=== PATIENT | male | born 1990 | race Caucasian/White ===

== ENCOUNTER 2017-10-08 23:14 | Emergency (ER) | payer BC ==
[2017-10-08 23:53] LABS: #Eosinphils 0.1 thou/uL (0.0-0.7); #Lymphocytes 2.2 thou/uL (1.20-3.40); #Monocytes 0.7 thou/uL (0.11-0.59); #Neutrophils 4.9 thou/uL (1.40-6.50); %Basophils 0.5 % (0.0-1.0); %Lymphocytes 27.8 % (21.0-51.0); %Monocytes 8.4 % (0.0-10.0); Hematocrit 41.2 % (42.0-52.0); Mean Platelet Volume 7.2 fL (7.4-10.4); Red Blood Cell (RBC) Count 4.55 mill/uL (4.70-6.10); White Blood Cell (WBC) Count 7.8 thou/uL (4.8-10.8)
[2017-10-09 00:16] LABS: ALT (SGPT) 19 U/L (8-55); AST (SGOT) 17 U/L (5-34); Alkaline Phosphatase 168 U/L (40-150); Anion Gap 11 mmol/L (10-20); BUN (Urea Nitrogen) 15 mg/dL (8.9-20.6); Bilirubin, Total 0.5 mg/dL (0.2-1.2); Calc. Creatinine Clearance 0 mL/min (70-130); Calcium 9.1 mg/dL (7.8-10.44); Carbon Dioxide 27 mmol/L (22-29); Chloride 106 mmol/L (98-107); Estimated GFR-MDRD 82; Globulin 2.6 g/dL (2.4-3.5); Protein, Total 6.5 g/dL (6.0-8.3)
[2017-10-09 01:45] LABS: Acetaminophen Less than 6.0 mcg/mL (10.0-30.0); CK (CPK) 232 U/L (30-200); Salicylate Less than 8.0 mg/dL (15.0-30.0)
[2017-10-09 01:48] LABS: Troponin I Less than 0.010 ng/mL (< 0.028)
[2017-10-09 02:52] LABS: Bilirubin Negative (Negative); Blood, Urine Negative (Negative); Glucose, Urine (Dipstick) Negative (Negative); Ketone, Urine Negative (Negative); Nitrite Negative (Negative); Protein, Urine (Dipstick) Negative (Neg-Trace)
[2017-10-09 03:01] LABS: Amphetamine Not Detected (NotDetected); Methadone Not Detected (NotDetected); Methamphetamine Detected (NotDetected)
--- NOTE | 2017-10-09 07:36 | RAD ---
FRONTAL VIEW CHEST: Date: 10/09/17 INDICATION: Dyspnea. COMPARISON: 05/22/12. FINDINGS: No consolidation, effusion, or pneumothorax. There is a subtle nodular density in the right lateral apex. Cardiac silhouette is within normal limits of size. Osseous structures are intact. IMPRESSION: There is a subtle nodular density in the right lateral apex, not further localized on the basis of th e frontal view chest series. Recommend nonemergent follow-up with 2 view chest series to re-evaluate. CODE LN
--- NOTE | 2017-10-24 11:39 | EKG ---
Test Reason : DIZZINESS Blood Pressure : / mmHG Vent. Rate : 081 BPM Atrial Rate : 081 BPM P-R Int : 186 ms QRS Dur : 106 ms QT Int : 356 ms P-R-T Axes : 077 092 064 degrees QTc Int : 413 ms Normal sinus rhythm Rightward axis Incomplete right bundle branch block No STEMI Borderline ECG Confirmed by DESTINI LAURA M.D. ([id number]), social media editor FERNANDO MANCILLA ([id number]) on 10/24/2017 11:38:45 AM Referred By: Confirmed By:DESTINI LAURA M.D.
== END 2017-10-09 04:33 | disposition home or self-care (01) ==
LOC: ERS 23:14
DX: F15.10 Other stimulant abuse, uncomplicated (principal); F31.9 Bipolar disorder, unspecified; F90.9 Attention-deficit hyperactivity disorder, unspecified type; F17.210 Nicotine dependence, cigarettes, uncomplicated
CPT/HCPCS: 36415; 71010; 80053; 80306; 80307; 81003; 82550; 82553; 84443; 84484; 85025; 93005; 96360

== ENCOUNTER 2017-10-11 18:19 | Emergency (ER) | payer BC | END 2017-10-11 20:18 | disposition home or self-care (01) | LOC: ERS 18:19 | DX: F41.9 Anxiety disorder, unspecified (principal); F17.210 Nicotine dependence, cigarettes, uncomplicated | CPT/HCPCS: 99406 ==

== ENCOUNTER 2017-10-26 14:54 | Observation (INO) | payer BC ==
[2017-10-26] MEDS ORDERED: Lorazepam 2 MG/ML VIAL ONE (15:12)
[2017-10-26 15:18] LABS: #Basophils 0.1 thou/uL (0.0-0.2); #Eosinphils 0.1 thou/uL (0.0-0.7); #Lymphocytes 3.5 thou/uL (1.20-3.40); #Monocytes 0.9 thou/uL (0.11-0.59); #Neutrophils 9.4 thou/uL (1.40-6.50); %Basophils 0.8 % (0.0-1.0); %Eosinophils 0.8 % (0.0-10.0); %Lymphocytes 24.8 % (21.0-51.0); %Monocytes 6.7 % (0.0-10.0); %Neutrophils 66.9 % (42.0-75.0); Hemoglobin 16.5 g/dL (14.0-18.0); Mean Corpuscular HGB CONC 34.4 g/dL (32.0-36.0); Mean Corpuscular Hemoglobin 31.2 pg (27.0-31.0); Mean Corpuscular Volume 90.7 fl (80.0-94.0); Mean Platelet Volume 7.2 fL (7.4-10.4); Platelet Count 357 thou/uL (130-400); RBC Distribution Width 12.1 % (11.5-14.5); Red Blood Cell (RBC) Count 5.29 mill/uL (4.70-6.10); White Blood Cell (WBC) Count 14.1 thou/uL (4.8-10.8)
[2017-10-26 15:34] LABS: ALT (SGPT) 20 U/L (8-55); AST (SGOT) 19 U/L (5-34); Albumin 4.5 g/dL (3.5-5.0); Alkaline Phosphatase 184 U/L (40-150); Anion Gap 18 mmol/L (10-20); BUN (Urea Nitrogen) 11 mg/dL (8.9-20.6); Bilirubin, Total 0.8 mg/dL (0.2-1.2); CK (CPK) 187 U/L (30-200); Calc. Creatinine Clearance 0 mL/min (70-130); Carbon Dioxide 19 mmol/L (22-29); Chloride 100 mmol/L (98-107); Estimated GFR-MDRD 72; Glucose 129 mg/dL (70-105); Potassium 3.1 mmol/L (3.5-5.1); Protein, Total 7.5 g/dL (6.0-8.3); Sodium 134 mmol/L (136-145)
[2017-10-26 15:37] LABS: CKMB 2.5 ng/mL (0-6.6); Troponin I Less than 0.010 ng/mL (< 0.028)
[2017-10-26 15:39] LABS: Acetaminophen Less than 6.0 mcg/mL (10.0-30.0); Alcohol Less than 10 mg/dL (Less than 10); Salicylate Less than 8.0 mg/dL (15.0-30.0)
[2017-10-26 16:37] LABS: Amphetamine Detected (NotDetected); Barbiturates Screen Not Detected (NotDetected); Benzodiazepine Screen Not Detected (NotDetected); Cocaine Metabolite Screen Not Detected (NotDetected); Medtox Control Line Valid? VALID (VALID); Medtox Reader # READER 1; Methadone Not Detected (NotDetected); Methamphetamine Detected (NotDetected); Opiate Screen Not Detected (NotDetected); Oxycodone Screen Not Detected (NotDetected); Phencyclidine (PCP) Not Detected (NotDetected); THC/Cannabinoid Screen Not Detected (NotDetected); Tricyclic Screen Detected (NotDetected)
--- NOTE | 2017-10-26 17:04 | RAD ---
RADIOGRAPH CHEST 1 VIEW: HISTORY: 27-year-old male with altered mental status. FINDINGS: There are no air space densities, pulmonary edema, pneumothorax, or cardiomegaly. The lateral costop hrenic angles are sharp. IMPRESSION: No acute cardiopulmonary findings. rika POS: [facility]
[2017-10-26] MEDS ORDERED: Ondansetron HCl/PF 4 MG/2 ML Vial IVP PRN (17:27)
[2017-10-26] MEDS ORDERED: Guaifenesin DM 100-10/5 ML UDCUP PO PRN (17:27)
[2017-10-26] MEDS ORDERED: Mag-Al 1200 mg/1200 mg/30 ML UDCUP PO PRN (17:27)
[2017-10-26] MEDS ORDERED: Senokot 8.6 MG TAB PO PRN (17:27)
[2017-10-26] MEDS ORDERED: Acetaminophen 325 MG TAB PO PRN (17:27)
[2017-10-26] MEDS ORDERED: Potassium Chloride 20 MEQ TAB ONE (17:43)
--- NOTE | 2017-10-26 18:54 | HP ---
REASON FOR ADMISSION: Chest pain, substance abuse, shortness of breath. HISTORY OF PRESENT ILLNESS: The patient gives history of having retrosternal chest pain this afterno on. He also felt very short of breath. He admits to using marijuana and amphetamines. He reported these to his roommate who in turn called EMS as patient was not getting any better. The retrosternal chest pain was 5/10 in intensity. He also had some palpitations. Has had some dry cough, but no ex pectoration. No prior history of heart disease. No history of fever. PAST MEDICAL/SURGICAL HISTORY: ADHD, bipolar disorder. CURRENT MEDICATIONS: None. ALLERGIES: No known drug allergies. PERSONAL HISTORY: Smokes one pack a day, abuses marijuana and methamphetamines. He has been using m eth for the last 5 years or so. Denies alcohol usage. He has been loading peter trucks. FAMILY HISTORY: Both parents are apparently healthy as far as he knows. REVIEW OF SYSTEMS: The following complete review of systems was negative, unless otherwise mentioned in the HPI or below: Constitutional: Weight loss or gain, ability to conduct usual activities. Skin: Rash, itching. Eyes: Double vision, pain. ENT/Mouth: Nose bleeding, neck stiffness, pain, tenderness. Cardiovascular: Palpitations, dyspnea on exertion, orthopnea. Respiratory: Shortness of breath, wheezing, cough, hemoptysis, fever or night sweats. Gastrointestinal: Poor appetite, abdominal pain, heartburn, nausea, vomiting, constipation, or diarrhea. Genitourinary: Urgency, frequency, dysuria, nocturia. Musculoskeletal: Pain, swelling. Neurologic/Psychiatric: Anxiety, depression. Allergy/Immunologic: Skin rash, bleeding tendency. PHYSICAL EXAMINATION: GENERAL: The patient is a 27-year-old male who is currently not in any acute distress. VITAL SIGNS: Blood pressure 150/100, pulse 120 per minute on arrival, currently around 90 per minute , respiratory rate was 45 on arrival, currently 22 per minute, temperature 97.9 degrees Fahrenheit, s aturating 100% on room air. NECK: Supple, no elevated JVD. HEENT: Extraocular muscles intact. Pupils reacting to light. Oral cavity, mucous membranes are dry . No exudates or congestion. CARDIOVASCULAR: S1, S2 heard. Tachycardic, no murmur. RESPIRATORY: Air entry 1+ bilaterally. Scattered wheezes plus bilaterally. ABDOMEN: Soft, bowel sounds heard. No tenderness, rigidity or guarding. EXTREMITIES: No peripheral edema or calf tenderness. VASCULAR SYSTEM: Peripheral pulses 1+ bilateral. No ischemic ulcerations or gangrene. CENTRAL NERVOUS SYSTEM: No gross focal deficits seen. The patient is lethargic and is not fully hilda ented, but responds well to questions. No gross focal deficits seen. PSYCHIATRIC: No obvious hallucinations or delusions. LABORATORY AND X-RAY FINDINGS: White count of 14, H&H 16 and 48, platelet count 357 with 66% neutrop hils, MCV is 90. Sodium 134, potassium 3.1. Serum bicarbonate 19, BUN 11, creatinine 1.2, glucose 1 29. AST, ALT within normal limits. Alkaline phosphatase is 184. One set of cardiac enzymes are neg ative. TSH 2.47. Urine drug screen is positive for tricyclics, amphetamine and methamphetamine. est x-ray done shows no acute cardiopulmonary abnormalities. Plasma alcohol was less than 10. CLINICAL IMPRESSION AND PLAN: The patient will be under observation on telemetry for [id number] ere dehydration, chest pain, substance abuse. The patient's EKG shows sinus tachycardia at 132 beats per minute with signs of LVH and incomplete RBBB. We will obtain an echo with 2D Doppler for LV fun ction and wall motion. He will be on full dose aspirin along with nitroglycerin paste 1/2 inch q.8 h ourly. Normal saline at 100 mL per hour for his dehydration and DuoNebs for his mild COPD flare-up w ith history of smoking almost a 1-2 packs a day. We will college counselor him regarding substance abuse and t obacco abuse in the morning when he is more alert. We will continue to closely monitor him on teleme try. His electrolytes will be corrected as well during his stay here.
[2017-10-26] MEDS: Sodium Chloride 0.9% 1,000 ML IV SCH (20:26)
[2017-10-26 20:47] VITALS: BMI 20.6
[2017-10-26] MEDS: Famotidine 20 MG TAB PO SCH (20:52)
[2017-10-26] MEDS ORDERED: Nicotine 21 MG PATCH TOP SCH (22:00)
[2017-10-26] MEDS: Nitroglycerin 2% Ointment 1 INCH/1 GM Packet TOP SCH (23:17)
[2017-10-27] MEDS: Sodium Chloride 0.9% 1,000 ML IV SCH (01:43)
[2017-10-27] MEDS: Nitroglycerin 2% Ointment 1 INCH/1 GM Packet TOP SCH (05:08)
[2017-10-27 05:33] LABS: Anion Gap 11 mmol/L (10-20); BUN (Urea Nitrogen) 9 mg/dL (8.9-20.6); Calc. Creatinine Clearance 86 mL/min (70-130); Calcium 9.4 mg/dL (7.8-10.44); Carbon Dioxide 22 mmol/L (22-29); Cardiac Risk 2.4 (Less than 4.5); Chloride 107 mmol/L (98-107); Cholesterol 100 mg/dl (< 200 Desired); Estimated GFR-MDRD 83; Glucose 84 mg/dL (70-105); HDL Cholesterol 41 mg/dL (>60 Neg Risk); LDL Cholesterol, Calculated 46 mg/dL; Potassium 4.3 mmol/L (3.5-5.1); Sodium 136 mmol/L (136-145); Triglycerides 63 mg/dL (Less than 150)
[2017-10-27 05:44] LABS: #Basophils 0.1 thou/uL (0.0-0.2); #Eosinphils 0.1 thou/uL (0.0-0.7); #Lymphocytes 1.7 thou/uL (1.20-3.40); #Monocytes 0.5 thou/uL (0.11-0.59); #Neutrophils 5.6 thou/uL (1.40-6.50); %Basophils 0.6 % (0.0-1.0); %Eosinophils 0.9 % (0.0-10.0); %Lymphocytes 21.6 % (21.0-51.0); %Monocytes 6.8 % (0.0-10.0); Hemoglobin 15.1 g/dL (14.0-18.0); Mean Corpuscular HGB CONC 34.2 g/dL (32.0-36.0); Mean Corpuscular Hemoglobin 31.2 pg (27.0-31.0); Mean Corpuscular Volume 91.4 fl (80.0-94.0); Mean Platelet Volume 7.3 fL (7.4-10.4); Platelet Count 269 thou/uL (130-400); RBC Distribution Width 12.2 % (11.5-14.5); Red Blood Cell (RBC) Count 4.84 mill/uL (4.70-6.10); White Blood Cell (WBC) Count 7.9 thou/uL (4.8-10.8)
[2017-10-27] MEDS ORDERED: cloNIDine 0.1 MG TAB PO PRN (08:08)
[2017-10-27 08:31] VITALS: BP 117/68; TEMP 97.9
[2017-10-27] MEDS ORDERED: Enoxaparin Sodium 40 MG/0.4 ML SYRINGE SC SCH (09:00)
[2017-10-27] MEDS ORDERED: Aspirin 325 MG TAB PO SCH (09:00)
[2017-10-27] MEDS ORDERED: FLU VACC QS2017-18 36 mo. & older 0.5 ML SYRINGE IM ONE (09:00)
[2017-10-27] MEDS: Famotidine 20 MG TAB PO SCH (09:10)
[2017-10-27 12:00] LABS: Troponin I Less than 0.010 ng/mL (< 0.028)
--- NOTE | 2017-10-28 09:18 | DIS ---
DATE OF DISCHARGE: 10/27/2017 DISCHARGE DISPOSITION: Home. FOLLOWUP: With primary care physician, Dr. Kraig Lobo in one week. ALLERGIES: No known drug allergies. DISCHARGE MEDICATIONS: Same as admission medications. 1. Citalopram 20 mg daily. 2. Seroquel 100 mg at bedtime. The patient was seen and examined on the day of discharge, denies any new complaints, no chest pain, shortness of breath, palpitations. DIAGNOSTIC TESTS: 1. A 2D echocardiogram showed left ventricular ejection fraction of 55-60% with normal diastolic dys function, trace mitral regurgitation. 2. Troponins were negative. 3. Potassium on the day of discharge is 4.3, on admission was 3.1. 4. TSH was 2.4. 5. Fasting lipid showed triglycerides 63, cholesterol 100 and LDL 46. BRIEF HOSPITAL COURSE: Patient is a 27-year-old male with bipolar disorder who presented to the hosp ital with chest discomfort of one day duration. He admitted to using cannabis and amphetamines. His urine drug screen was positive for amphetamines and methamphetamines. Patient was monitored on the telemetry unit. Serial cardiac enzymes were negative. D-dimer was negative. An echocardiogram was done as discussed above. His chest pain is probably secondary to his drug use. He was extensively c ounseled on lifestyle modification. There was no significant arrhythmia noted on the telemetry monit or except for sinus tachycardia. He showed good improvement with IV fluids and nebulizer treatments. FINAL DIAGNOSES: 1. Chest discomfort, acute coronary syndrome ruled out. 2. Polysubstance abuse. Patient was counseled. 3. Ongoing tobacco dependence. 4. Attention-deficit/hyperactivity disorder. 5. Bipolar disorder. 6. Hypokalemia, corrected. 7. Leukocytosis of 14.1 on admission, unlikely to be infectious. His WBC at discharge is 7.9 withou t any left shift. 8. Chronic kidney disease stage 2. 9. Hyponatremia, corrected. Plan of care was discussed with the patient in detail and he stated understanding.
--- NOTE | 2017-12-05 20:16 | EKG ---
Test Reason : Blood Pressure : / mmHG Vent. Rate : 132 BPM Atrial Rate : 132 BPM P-R Int : 160 ms QRS Dur : 104 ms QT Int : 284 ms P-R-T Axes : 076 102 073 degrees QTc Int : 420 ms Sinus tachycardia Biatrial enlargement Rightward axis Pulmonary disease pattern Incomplete right bundle branch block Abnormal ECG Confirmed by TO RIKKI Frazier ([id number]), subeditor FERNANDO MANCILLA ([id number]) on 12/05/2017 8:16:50 PM Referred By: Confirmed By:RIKKI AUGUSTE M.D.
== END 2017-10-27 12:18 | disposition home or self-care (01) ==
LOC: ERS 14:54 → 2SW 16:46
PROVIDERS: ADMIT Internal Medicine; ATTEND Internal Medicine
DX: R07.89 Other chest pain (principal); F12.10 Cannabis abuse, uncomplicated; F15.10 Other stimulant abuse, uncomplicated; F90.9 Attention-deficit hyperactivity disorder, unspecified type; F31.9 Bipolar disorder, unspecified; E87.6 Hypokalemia; D72.829 Elevated white blood cell count, unspecified; E87.1 Hypo-osmolality and hyponatremia; F17.210 Nicotine dependence, cigarettes, uncomplicated; N18.2 Chronic kidney disease, stage 2 (mild); Z79.899 Other long term (current) drug therapy
CPT/HCPCS: 36415; 36416; 71045; 80048; 80053; 80061; 80306; 80307; 82553; 84443; 84484; 85025; 85379; 90471; 90682; 93005; 93306; 94640; 94760; 96361; 96372; 96374; 99406; G0008; G0378; J1650; J2060; J7620; Q2036

== ENCOUNTER 2017-10-29 10:45 | Emergency (ER) | payer BC, OTHER, SELFPAY ==
[2017-10-29 11:24] LABS: #Basophils 0.1 thou/uL (0.0-0.2); #Eosinphils 0.1 thou/uL (0.0-0.7); #Lymphocytes 1.6 thou/uL (1.20-3.40); #Monocytes 0.7 thou/uL (0.11-0.59); #Neutrophils 7.8 thou/uL (1.40-6.50); %Basophils 0.5 % (0.0-1.0); %Eosinophils 0.6 % (0.0-10.0); %Lymphocytes 15.6 % (21.0-51.0); %Monocytes 7.1 % (0.0-10.0); %Neutrophils 76.1 % (42.0-75.0); Mean Corpuscular Hemoglobin 30.7 pg (27.0-31.0); Mean Corpuscular Volume 90.4 fl (80.0-94.0); Mean Platelet Volume 7.1 fL (7.4-10.4); Platelet Count 327 thou/uL (130-400); Red Blood Cell (RBC) Count 5.21 mill/uL (4.70-6.10); White Blood Cell (WBC) Count 10.2 thou/uL (4.8-10.8)
[2017-10-29 11:40] LABS: ALT (SGPT) 22 U/L (8-55); AST (SGOT) 23 U/L (5-34); Albumin 4.5 g/dL (3.5-5.0); Alkaline Phosphatase 185 U/L (40-150); Anion Gap 13 mmol/L (10-20); BUN (Urea Nitrogen) 13 mg/dL (8.9-20.6); Bilirubin, Total 0.6 mg/dL (0.2-1.2); Calc. Creatinine Clearance 0 mL/min (70-130); Calcium 10.4 mg/dL (7.8-10.44); Carbon Dioxide 25 mmol/L (22-29); Chloride 104 mmol/L (98-107); Estimated GFR-MDRD 77; Globulin 3.1 g/dL (2.4-3.5); Glucose 85 mg/dL (70-105); Protein, Total 7.6 g/dL (6.0-8.3); Sodium 138 mmol/L (136-145)
== END 2017-10-29 12:01 | disposition home or self-care (01) ==
LOC: ERS 10:45
DX: F41.9 Anxiety disorder, unspecified (principal); J30.2 Other seasonal allergic rhinitis; F90.9 Attention-deficit hyperactivity disorder, unspecified type; F31.9 Bipolar disorder, unspecified; F17.210 Nicotine dependence, cigarettes, uncomplicated
CPT/HCPCS: 36415; 80053; 85025; 99284

== ENCOUNTER 2017-10-30 12:38 | Emergency (ER) | payer OTHER, BC ==
[2017-10-30 13:51] LABS: #Basophils 0.1 thou/uL (0.0-0.2); #Eosinphils 0.1 thou/uL (0.0-0.7); #Lymphocytes 1.8 thou/uL (1.20-3.40); #Monocytes 0.7 thou/uL (0.11-0.59); #Neutrophils 8.3 thou/uL (1.40-6.50); %Basophils 0.5 % (0.0-1.0); %Eosinophils 0.5 % (0.0-10.0); %Lymphocytes 16.6 % (21.0-51.0); %Monocytes 6.5 % (0.0-10.0); %Neutrophils 75.9 % (42.0-75.0); Hemoglobin 14.4 g/dL (14.0-18.0); Mean Corpuscular HGB CONC 34.7 g/dL (32.0-36.0); Mean Corpuscular Hemoglobin 31.5 pg (27.0-31.0); Mean Corpuscular Volume 90.7 fl (80.0-94.0); Mean Platelet Volume 6.7 fL (7.4-10.4); Platelet Count 273 thou/uL (130-400); Red Blood Cell (RBC) Count 4.56 mill/uL (4.70-6.10); White Blood Cell (WBC) Count 10.9 thou/uL (4.8-10.8)
--- NOTE | 2017-10-30 14:10 | CT ---
EXAM: NONCONTRAST HEAD CT: COMPARISON: 09/16/15. HISTORY: Altered mental status. TECHNIQUE: Noncontrast head CT is performed from the skull base to the skull vertex. FINDINGS: No parenchymal hemorrhage. No extraaxial hematoma. No midline shift. Basilar cisterns are patent. Brain volume is age appropriate. Cortical harman-white matter differentiation is preserved. Ventricles and sulci are patent and symmetric. Calvarium is intact. Adequate aeration of the sinuses and mastoid air cells. IMPRESSION: No acute intracranial process. POS: [facility]
[2017-10-30 14:15] LABS: ALT (SGPT) 19 U/L (8-55); AST (SGOT) 17 U/L (5-34); Albumin 3.8 g/dL (3.5-5.0); Alkaline Phosphatase 142 U/L (40-150); Anion Gap 11 mmol/L (10-20); BUN (Urea Nitrogen) 13 mg/dL (8.9-20.6); Bilirubin, Total 0.7 mg/dL (0.2-1.2); Calc. Creatinine Clearance 0 mL/min (70-130); Calcium 9.3 mg/dL (7.8-10.44); Carbon Dioxide 24 mmol/L (22-29); Chloride 107 mmol/L (98-107); Estimated GFR-MDRD 84; Globulin 2.4 g/dL (2.4-3.5); Glucose 92 mg/dL (70-105); Protein, Total 6.2 g/dL (6.0-8.3); Sodium 138 mmol/L (136-145)
== END 2017-10-30 14:35 | disposition home or self-care (01) ==
LOC: ERS 12:38
DX: F15.10 Other stimulant abuse, uncomplicated (principal); H93.13 Tinnitus, bilateral; F90.9 Attention-deficit hyperactivity disorder, unspecified type; F31.9 Bipolar disorder, unspecified; F17.210 Nicotine dependence, cigarettes, uncomplicated; Z79.899 Other long term (current) drug therapy
CPT/HCPCS: 36415; 70450; 80053; 84146; 85025; 96360

== ENCOUNTER 2017-11-03 19:19 | Emergency (ER) | payer BC, OTHER ==
[2017-11-03 19:44] LABS: #Basophils 0.1 thou/uL (0.0-0.2); #Lymphocytes 2.4 thou/uL (1.20-3.40); #Monocytes 0.9 thou/uL (0.11-0.59); #Neutrophils 9.1 thou/uL (1.40-6.50); %Basophils 0.7 % (0.0-1.0); %Eosinophils 0.4 % (0.0-10.0); %Lymphocytes 19.1 % (21.0-51.0); %Monocytes 6.9 % (0.0-10.0); %Neutrophils 72.9 % (42.0-75.0); Hemoglobin 15.4 g/dL (14.0-18.0); Mean Corpuscular HGB CONC 35.2 g/dL (32.0-36.0); Mean Corpuscular Hemoglobin 29.9 pg (27.0-31.0); Mean Corpuscular Volume 84.7 fl (80.0-94.0); Mean Platelet Volume 6.6 fL (7.4-10.4); Platelet Count 351 thou/uL (130-400); RBC Distribution Width 10.9 % (11.5-14.5); Red Blood Cell (RBC) Count 5.16 mill/uL (4.70-6.10); White Blood Cell (WBC) Count 12.5 thou/uL (4.8-10.8)
[2017-11-03 20:04] LABS: Troponin I 0.014 ng/mL (< 0.028)
[2017-11-03 20:05] LABS: ALT (SGPT) 19 U/L (8-55); AST (SGOT) 20 U/L (5-34); Acetaminophen Less than 6.0 mcg/mL (10.0-30.0); Albumin 4.4 g/dL (3.5-5.0); Alcohol Less than 10 mg/dL (Less than 10); Alkaline Phosphatase 159 U/L (40-150); Anion Gap 15 mmol/L (10-20); BUN (Urea Nitrogen) 14 mg/dL (8.9-20.6); Bilirubin, Total 0.7 mg/dL (0.2-1.2); Calc. Creatinine Clearance 0 mL/min (70-130); Calcium 9.8 mg/dL (7.8-10.44); Carbon Dioxide 20 mmol/L (22-29); Chloride 108 mmol/L (98-107); Estimated GFR-MDRD 72; Globulin 2.7 g/dL (2.4-3.5); Glucose 88 mg/dL (70-105); Lipase 18 U/L (8-78); Potassium 3.3 mmol/L (3.5-5.1); Protein, Total 7.1 g/dL (6.0-8.3); Salicylate Less than 8.0 mg/dL (15.0-30.0); Sodium 140 mmol/L (136-145)
--- NOTE | 2017-11-03 20:08 | RAD ---
PORTABLE CHEST ONE VIEW 11/03/17 at 7:53 p.m. HISTORY: Shortness of breath. FINDINGS: Comparison made with exam of 10/26/17. The heart size is normal. The lungs are well expanded without focal areas of consolidation, pneumotho rax or pleural effusions. IMPRESSION: No radiographic evidence of acute cardiopulmonary process. POS: [facility]
--- NOTE | 2017-12-05 18:24 | EKG ---
Test Reason : Blood Pressure : / mmHG Vent. Rate : 081 BPM Atrial Rate : 081 BPM P-R Int : 184 ms QRS Dur : 122 ms QT Int : 368 ms P-R-T Axes : 081 093 081 degrees QTc Int : 427 ms Normal sinus rhythm with sinus arrhythmia Rightward axis RSR' or QR pattern in V1 suggests right ventricular conduction delay Nonspecific ST abnormality Abnormal ECG Confirmed by JAMES COLINDRES ([id number]), greeting card editor FERNANDO MANCILLA ([id number]) on 12/05/2017 6:23:57 PM Referred By: Confirmed By:JAMES COLINDRES
== END 2017-11-03 20:50 | disposition home or self-care (01) ==
LOC: SCSER 19:19
DX: R06.00 Dyspnea, unspecified (principal); F90.9 Attention-deficit hyperactivity disorder, unspecified type; F31.9 Bipolar disorder, unspecified; F17.210 Nicotine dependence, cigarettes, uncomplicated
CPT/HCPCS: 71045; 80053; 80307; 82553; 83690; 84484; 85025; 93005; 96360

== ENCOUNTER 2017-11-28 20:04 | Emergency (ER) | payer BC, SELFPAY ==
[2017-11-28 20:49] LABS: Amphetamine Not Detected (NotDetected); Barbiturates Screen Not Detected (NotDetected); Benzodiazepine Screen Not Detected (NotDetected); Cocaine Metabolite Screen Not Detected (NotDetected); Medtox Control Line Valid? VALID (VALID); Medtox Reader # READER 1; Methadone Not Detected (NotDetected); Methamphetamine Detected (NotDetected); Opiate Screen Not Detected (NotDetected); Oxycodone Screen Not Detected (NotDetected); Phencyclidine (PCP) Not Detected (NotDetected); THC/Cannabinoid Screen Not Detected (NotDetected); Tricyclic Screen Not Detected (NotDetected)
[2017-11-28 20:58] LABS: #Basophils 0.1 thou/uL (0.0-0.2); #Eosinphils 0.2 thou/uL (0.0-0.7); #Lymphocytes 2.3 thou/uL (1.20-3.40); #Monocytes 0.7 thou/uL (0.11-0.59); #Neutrophils 4.3 thou/uL (1.40-6.50); %Basophils 1.1 % (0.0-1.0); %Eosinophils 2.3 % (0.0-10.0); %Lymphocytes 30.3 % (21.0-51.0); %Monocytes 9.3 % (0.0-10.0); Hemoglobin 16.1 g/dL (14.0-18.0); Mean Corpuscular HGB CONC 33.8 g/dL (32.0-36.0); Mean Corpuscular Hemoglobin 31.4 pg (27.0-31.0); Mean Corpuscular Volume 92.7 fl (80.0-94.0); Mean Platelet Volume 7.3 fL (7.4-10.4); Platelet Count 268 thou/uL (130-400); RBC Distribution Width 12.1 % (11.5-14.5); Red Blood Cell (RBC) Count 5.15 mill/uL (4.70-6.10); White Blood Cell (WBC) Count 7.6 thou/uL (4.8-10.8)
[2017-11-28 21:23] LABS: Acetaminophen Less than 6.0 mcg/mL (10.0-30.0); Alcohol Less than 10 mg/dL (Less than 10); Anion Gap 10 mmol/L (10-20); BUN (Urea Nitrogen) 12 mg/dL (8.9-20.6); CK (CPK) 146 U/L (30-200); Calc. Creatinine Clearance 0 mL/min (70-130); Calcium 9.6 mg/dL (7.8-10.44); Carbon Dioxide 33 mmol/L (22-29); Chloride 99 mmol/L (98-107); Estimated GFR-MDRD 79; Glucose 74 mg/dL (70-105); Potassium 4.5 mmol/L (3.5-5.1); Salicylate Less than 8.0 mg/dL (15.0-30.0); Sodium 137 mmol/L (136-145)
[2017-11-28 22:03] LABS: Bilirubin Negative (Negative); Blood, Urine Negative (Negative); Clarity CLEAR (Clear); Glucose, Urine (Dipstick) Negative (Negative); Leukocyte Negative (Negative); Nitrite Negative (Negative); Protein, Urine (Dipstick) Negative (Neg-Trace); Specific Gravity, Urine 1.018 (1.002-1.036); Urobilinogen 0.2 mg/dL (0.2-1.0); pH, Urine 7.5 (5.0-9.0)
== END 2017-11-28 22:00 | disposition home or self-care (01) ==
LOC: ERS 20:04
DX: F15.10 Other stimulant abuse, uncomplicated (principal); R44.1 Visual hallucinations; F90.9 Attention-deficit hyperactivity disorder, unspecified type; F31.9 Bipolar disorder, unspecified; F17.210 Nicotine dependence, cigarettes, uncomplicated
CPT/HCPCS: 36415; 80048; 80306; 80307; 81003; 82550; 85025; 93005

== ENCOUNTER 2018-01-18 06:27 | Emergency (ER) | payer BC, OTHER, SELFPAY ==
[2018-01-18 06:55] LABS: Amphetamine Not Detected (NotDetected); Barbiturates Screen Not Detected (NotDetected); Benzodiazepine Screen Not Detected (NotDetected); Cocaine Metabolite Screen Not Detected (NotDetected); Medtox Control Line Valid? VALID (VALID); Methadone Not Detected (NotDetected); Methamphetamine Not Detected (NotDetected); Opiate Screen Not Detected (NotDetected); Oxycodone Screen Not Detected (NotDetected); Phencyclidine (PCP) Not Detected (NotDetected); THC/Cannabinoid Screen Not Detected (NotDetected); Tricyclic Screen Not Detected (NotDetected)
[2018-01-18 07:26] LABS: #Basophils 0.1 thou/uL (0.0-0.2); #Lymphocytes 2.9 thou/uL (1.20-3.40); #Monocytes 0.4 thou/uL (0.11-0.59); #Neutrophils 8.1 thou/uL (1.40-6.50); %Basophils 0.6 % (0.0-1.0); %Eosinophils 0.3 % (0.0-10.0); %Lymphocytes 25.5 % (21.0-51.0); %Monocytes 3.1 % (0.0-10.0); %Neutrophils 70.6 % (42.0-75.0); Hemoglobin 15.3 g/dL (14.0-18.0); Mean Corpuscular Volume 85.8 fl (80.0-94.0); Mean Platelet Volume 6.5 fL (7.4-10.4); Platelet Count 380 thou/uL (130-400); RBC Distribution Width 11.1 % (11.5-14.5); White Blood Cell (WBC) Count 11.5 thou/uL (4.8-10.8)
[2018-01-18 07:39] LABS: ALT (SGPT) 35 U/L (8-55); AST (SGOT) 32 U/L (5-34); Albumin 4.7 g/dL (3.5-5.0); Alkaline Phosphatase 170 U/L (40-150); Anion Gap 16 mmol/L (10-20); BUN (Urea Nitrogen) 13 mg/dL (8.9-20.6); Bilirubin, Total 1.3 mg/dL (0.2-1.2); CK (CPK) 329 U/L (30-200); Calc. Creatinine Clearance 0 mL/min (70-130); Calcium 9.9 mg/dL (7.8-10.44); Carbon Dioxide 21 mmol/L (22-29); Chloride 105 mmol/L (98-107); Estimated GFR-MDRD 78; Globulin 3.1 g/dL (2.4-3.5); Glucose 91 mg/dL (70-105); Lipase 20 U/L (8-78); Potassium 3.4 mmol/L (3.5-5.1); Protein, Total 7.8 g/dL (6.0-8.3); Sodium 139 mmol/L (136-145)
[2018-01-18 07:40] LABS: CKMB 3.2 ng/mL (0-6.6); Troponin I Less than 0.010 ng/mL (< 0.028)
--- NOTE | 2018-01-18 08:05 | RAD ---
CHEST TWO VIEWS: HISTORY: Cough. COMPARISON: Radiograph from 11/03/2017. FINDINGS: The lungs are clear. No pneumothorax or effusion. The cardiac silhouette and mediastinal contour ar e within normal limits. No acute osseous abnormality. IMPRESSION: No acute intracranial abnormality. POS: [facility]
--- NOTE | 2018-01-18 08:11 | CT ---
CT BRAIN WITHOUT CONTRAST: INDICATIONS: A 27-year-old male with shortness of breath and chest pain. The patient is also complaining of blurr ed vision, ringing in the ears, and numbness in the hands and feet. The patient reported used metham phetamines last night. COMPARISON: Prior exam dated 10/30/2017. FINDINGS: No acute infarct, hemorrhage, or hydrocephalus is present. The septum pellucidum and third ventricle are midline. The skull and intracranial soft tissues are within normal limits. IMPRESSION: No acute intracranial abnormality demonstrated. POS: [facility]
--- NOTE | 2018-02-26 12:07 | EKG ---
Test Reason : Blood Pressure : / mmHG Vent. Rate : 107 BPM Atrial Rate : 107 BPM P-R Int : 154 ms QRS Dur : 100 ms QT Int : 318 ms P-R-T Axes : 074 105 071 degrees QTc Int : 424 ms Sinus tachycardia Possible Left atrial enlargement Rightward axis Incomplete right bundle branch block Borderline ECG Confirmed by JAMES COLINDRES ([id number]), corporate risk analyst FERNANDO MANCILLA ([id number]) on 02/26/2018 12:06:57 PM Referred By: Confirmed By:JAMES COLINDRES
== END 2018-01-18 07:53 | disposition home or self-care (01) ==
LOC: SCSER 06:27
DX: F15.10 Other stimulant abuse, uncomplicated (principal); R06.00 Dyspnea, unspecified; F90.9 Attention-deficit hyperactivity disorder, unspecified type; F31.9 Bipolar disorder, unspecified; F17.210 Nicotine dependence, cigarettes, uncomplicated
CPT/HCPCS: 70450; 71046; 80053; 80306; 82553; 83690; 84484; 85025; 93005

== ENCOUNTER 2018-01-18 11:21 | Emergency (ER) | payer BC, SELFPAY ==
[2018-01-18 14:29] LABS: Medtox Reader # READER 4
[2018-01-18 14:31] LABS: Methamphetamine Detected (NotDetected)
[2018-01-18 14:32] LABS: Amphetamine Not Detected (NotDetected); Barbiturates Screen Not Detected (NotDetected); Benzodiazepine Screen Not Detected (NotDetected); Cocaine Metabolite Screen Not Detected (NotDetected); Medtox Control Line Valid? VALID (VALID); Methadone Not Detected (NotDetected); Opiate Screen Not Detected (NotDetected); Oxycodone Screen Not Detected (NotDetected); Phencyclidine (PCP) Not Detected (NotDetected); THC/Cannabinoid Screen Not Detected (NotDetected); Tricyclic Screen Not Detected (NotDetected)
== END 2018-01-18 17:33 | disposition home or self-care (01) ==
LOC: ERS 11:21
DX: F41.9 Anxiety disorder, unspecified (principal); G47.00 Insomnia, unspecified; F15.10 Other stimulant abuse, uncomplicated; F90.9 Attention-deficit hyperactivity disorder, unspecified type; F31.9 Bipolar disorder, unspecified; F17.210 Nicotine dependence, cigarettes, uncomplicated; Z71.6 Tobacco abuse counseling; R06.00 Dyspnea, unspecified
CPT/HCPCS: 70450; 71046; 80053; 80306; 82553; 83690; 84484; 85025; 93005; 99406

== ENCOUNTER 2018-02-23 15:48 | Emergency (ER) | payer BC, OTHER, SELFPAY ==
[2018-02-23 16:45] LABS: #Basophils 0.1 thou/uL (0.0-0.2); #Eosinphils 0.1 thou/uL (0.0-0.7); #Lymphocytes 2.3 thou/uL (1.20-3.40); #Monocytes 0.6 thou/uL (0.11-0.59); #Neutrophils 7.5 thou/uL (1.40-6.50); %Basophils 0.7 % (0.0-1.0); %Eosinophils 0.6 % (0.0-10.0); %Lymphocytes 21.9 % (21.0-51.0); %Monocytes 5.7 % (0.0-10.0); %Neutrophils 71.2 % (42.0-75.0); Hemoglobin 16.4 g/dL (14.0-18.0); Mean Corpuscular Hemoglobin 31.1 pg (27.0-31.0); Mean Corpuscular Volume 86.4 fl (80.0-94.0); Mean Platelet Volume 7.1 fL (7.4-10.4); Platelet Count 290 thou/uL (130-400); RBC Distribution Width 10.3 % (11.5-14.5); Red Blood Cell (RBC) Count 5.26 mill/uL (4.70-6.10); White Blood Cell (WBC) Count 10.5 thou/uL (4.8-10.8)
[2018-02-23 16:56] LABS: Anion Gap 16 mmol/L (10-20); BUN (Urea Nitrogen) 15 mg/dL (8.9-20.6); Calc. Creatinine Clearance 0 mL/min (70-130); Calcium 9.7 mg/dL (7.8-10.44); Carbon Dioxide 22 mmol/L (22-29); Chloride 103 mmol/L (98-107); Estimated GFR-MDRD 74; Glucose 97 mg/dL (70-105); Potassium 3.3 mmol/L (3.5-5.1); Sodium 138 mmol/L (136-145)
[2018-02-23 17:00] LABS: CKMB 3.3 ng/mL (0-6.6); Troponin I Less than 0.010 ng/mL (< 0.028)
== END 2018-02-23 17:09 | disposition home or self-care (01) ==
LOC: SCSER 15:48 → ERS 15:48 → SCSER 17:09
DX: F15.10 Other stimulant abuse, uncomplicated (principal); F90.9 Attention-deficit hyperactivity disorder, unspecified type; F17.210 Nicotine dependence, cigarettes, uncomplicated; F31.9 Bipolar disorder, unspecified
CPT/HCPCS: 36415; 80048; 82553; 84484; 85025; 93005

== ENCOUNTER 2018-02-23 18:36 | Emergency (ER) | payer SELFPAY ==
[2018-02-23 19:30] LABS: #Basophils 0.1 thou/uL (0.0-0.2); #Eosinphils 0.1 thou/uL (0.0-0.7); #Lymphocytes 2.1 thou/uL (1.20-3.40); #Monocytes 0.6 thou/uL (0.11-0.59); #Neutrophils 6.6 thou/uL (1.40-6.50); %Basophils 0.6 % (0.0-1.0); %Lymphocytes 21.9 % (21.0-51.0); %Monocytes 6.4 % (0.0-10.0); %Neutrophils 70.2 % (42.0-75.0); Hemoglobin 15.2 g/dL (14.0-18.0); Mean Corpuscular HGB CONC 35.8 g/dL (32.0-36.0); Mean Corpuscular Hemoglobin 31.5 pg (27.0-31.0); Mean Platelet Volume 6.8 fL (7.4-10.4); Platelet Count 301 thou/uL (130-400); RBC Distribution Width 11.4 % (11.5-14.5); Red Blood Cell (RBC) Count 4.81 mill/uL (4.70-6.10); White Blood Cell (WBC) Count 9.3 thou/uL (4.8-10.8)
[2018-02-23 19:59] LABS: ALT (SGPT) 31 U/L (8-55); AST (SGOT) 25 U/L (5-34); Acetaminophen Less than 6.0 mcg/mL (10.0-30.0); Albumin 4.3 g/dL (3.5-5.0); Alcohol Less than 10 mg/dL (Less than 10); Alkaline Phosphatase 151 U/L (40-150); Anion Gap 13 mmol/L (10-20); BUN (Urea Nitrogen) 15 mg/dL (8.9-20.6); Bilirubin, Total 0.8 mg/dL (0.2-1.2); CK (CPK) 245 U/L (30-200); Calc. Creatinine Clearance 0 mL/min (70-130); Calcium 9.1 mg/dL (7.8-10.44); Carbon Dioxide 22 mmol/L (22-29); Chloride 105 mmol/L (98-107); Estimated GFR-MDRD 82; Globulin 2.6 g/dL (2.4-3.5); Glucose 94 mg/dL (70-105); Potassium 3.1 mmol/L (3.5-5.1); Protein, Total 6.9 g/dL (6.0-8.3); Salicylate Less than 8.0 mg/dL (15.0-30.0); Sodium 137 mmol/L (136-145)
[2018-02-23 22:23] LABS: Cocaine Metabolite Screen Not Detected (NotDetected); Medtox Reader # READER 1; Methamphetamine Detected (NotDetected); Phencyclidine (PCP) Not Detected (NotDetected); THC/Cannabinoid Screen Not Detected (NotDetected)
[2018-02-23 22:24] LABS: Amphetamine Not Detected (NotDetected); Barbiturates Screen Not Detected (NotDetected); Benzodiazepine Screen Not Detected (NotDetected); Medtox Control Line Valid? VALID (VALID); Methadone Not Detected (NotDetected); Opiate Screen Not Detected (NotDetected); Oxycodone Screen Not Detected (NotDetected); Tricyclic Screen Not Detected (NotDetected)
== END 2018-02-23 22:00 | disposition home or self-care (01) ==
LOC: ERS 18:36
DX: F15.10 Other stimulant abuse, uncomplicated (principal); R42 Dizziness and giddiness; F90.9 Attention-deficit hyperactivity disorder, unspecified type; F31.9 Bipolar disorder, unspecified; F17.210 Nicotine dependence, cigarettes, uncomplicated
CPT/HCPCS: 36415; 80306; 80307; 96360; 99406

== ENCOUNTER 2018-08-23 13:27 | Emergency (ER) | payer BC, SELFPAY ==
[2018-08-23] MEDS ORDERED: Ondansetron ODT 4 MG TAB ONE (13:43)
[2018-08-23] MEDS ORDERED: Diazepam 5 MG TAB ONE (14:30)
[2018-08-23 15:14] LABS: #Eosinphils 0.1 thou/uL (0.0-0.7); #Lymphocytes 2.3 thou/uL (1.20-3.40); #Monocytes 0.9 thou/uL (0.11-0.59); #Neutrophils 11.4 thou/uL (1.40-6.50); %Basophils 0.3 % (0.0-1.0); %Eosinophils 0.5 % (0.0-10.0); %Lymphocytes 15.8 % (21.0-51.0); %Monocytes 6.3 % (0.0-10.0); %Neutrophils 77.1 % (42.0-75.0); Hemoglobin 18.7 g/dL (14.0-18.0); Mean Corpuscular HGB CONC 33.6 g/dL (32.0-36.0); Mean Corpuscular Hemoglobin 29.8 pg (27.0-31.0); Mean Corpuscular Volume 88.8 fL (78.0-98.0); Mean Platelet Volume 7.6 fL (7.4-10.4); Platelet Count 286 thou/uL (130-400); RBC Distribution Width 11.7 % (11.5-14.5); Red Blood Cell (RBC) Count 6.26 mill/uL (4.70-6.10); White Blood Cell (WBC) Count 14.8 thou/uL (4.8-10.8)
[2018-08-23 15:16] LABS: Acetaminophen Less than 6.0 mcg/mL (10.0-30.0); Alcohol Less than 10 mg/dL (Less than 10); Salicylate Less than 8.0 mg/dL (15.0-30.0)
[2018-08-23 15:17] LABS: ALT (SGPT) 26 U/L (8-55); AST (SGOT) 28 U/L (5-34); Alkaline Phosphatase 110 U/L (40-150); Anion Gap 14 mmol/L (10-20); BUN (Urea Nitrogen) 19 mg/dL (8.9-20.6); Bilirubin, Total 1.2 mg/dL (0.2-1.2); Calc. Creatinine Clearance 0 mL/min (70-130); Calcium 8.9 mg/dL (7.8-10.44); Carbon Dioxide 19 mmol/L (22-29); Chloride 108 mmol/L (98-107); Estimated GFR-MDRD 65; Globulin 2.3 g/dL (2.4-3.5); Glucose 127 mg/dL (70-105); Potassium 3.5 mmol/L (3.5-5.1); Protein, Total 6.3 g/dL (6.0-8.3); Sodium 137 mmol/L (136-145)
[2018-08-23 16:39] LABS: Amphetamine Detected (NotDetected); Barbiturates Screen Not Detected (NotDetected); Benzodiazepine Screen Not Detected (NotDetected); Cocaine Metabolite Screen Not Detected (NotDetected); Medtox Control Line Valid? VALID (VALID); Medtox Reader # READER 1; Methadone Not Detected (NotDetected); Methamphetamine Not Detected (NotDetected); Opiate Screen Not Detected (NotDetected); Oxycodone Screen Not Detected (NotDetected); Phencyclidine (PCP) Not Detected (NotDetected); THC/Cannabinoid Screen Not Detected (NotDetected); Tricyclic Screen Not Detected (NotDetected)
--- NOTE | 2018-08-28 21:28 | EKG ---
Test Reason : DIZZINESS Blood Pressure : / mmHG Vent. Rate : 092 BPM Atrial Rate : 092 BPM P-R Int : 176 ms QRS Dur : 102 ms QT Int : 356 ms P-R-T Axes : 078 097 067 degrees QTc Int : 440 ms Normal sinus rhythm Possible Left atrial enlargement Rightward axis Incomplete right bundle branch block Borderline ECG Confirmed by IMELDA QUINN, VIRIDIANA ([id number]), production editor FERNANDO MANCILLA ([id number]) on 08/28/2018 9:28:05 PM Referred By: Confirmed By:VIRIDIANA SEGURA MD
== END 2018-08-23 18:46 | disposition home or self-care (01) ==
LOC: ERS 13:27
DX: R42 Dizziness and giddiness (principal); R11.2 Nausea with vomiting, unspecified; F90.9 Attention-deficit hyperactivity disorder, unspecified type; F31.9 Bipolar disorder, unspecified; F17.210 Nicotine dependence, cigarettes, uncomplicated
CPT/HCPCS: 80053; 80306; 80307; 84443; 85025; 93005; 96360; 96361; Q0162

== ENCOUNTER 2018-09-14 18:45 | Emergency (ER) | payer BC, SELFPAY ==
[2018-09-14] MEDS ORDERED: Meclizine HCl 25 MG TAB ONE (19:44)
== END 2018-09-14 21:14 | disposition home or self-care (01) ==
LOC: ERS 18:45
DX: R42 Dizziness and giddiness (principal); F31.9 Bipolar disorder, unspecified; F90.9 Attention-deficit hyperactivity disorder, unspecified type; F17.210 Nicotine dependence, cigarettes, uncomplicated
CPT/HCPCS: 93005

== ENCOUNTER 2018-09-16 15:31 | Emergency (ER) | payer SELFPAY ==
[2018-09-16 16:20] LABS: Bilirubin Small (Negative); Blood, Urine Negative (Negative); Clarity CLEAR (Clear); Glucose, Urine (Dipstick) Negative (Negative); Leukocyte Negative (Negative); Nitrite Negative (Negative); Protein, Urine (Dipstick) Negative (Neg-Trace); Specific Gravity, Urine 1.035 (1.002-1.036); pH, Urine 5.5 (5.0-9.0)
[2018-09-16 16:31] LABS: Amphetamine Detected (NotDetected); Barbiturates Screen Not Detected (NotDetected); Benzodiazepine Screen Detected (NotDetected); Cocaine Metabolite Screen Not Detected (NotDetected); Medtox Control Line Valid? VALID (VALID); Medtox Reader # READER 1; Methadone Not Detected (NotDetected); Methamphetamine Detected (NotDetected); Opiate Screen Not Detected (NotDetected); Oxycodone Screen Not Detected (NotDetected); Phencyclidine (PCP) Not Detected (NotDetected); THC/Cannabinoid Screen Detected (NotDetected); Tricyclic Screen Not Detected (NotDetected)
== END 2018-09-16 17:30 | disposition home or self-care (01) ==
LOC: ERS 15:31
DX: F19.10 Other psychoactive substance abuse, uncomplicated (principal); F31.9 Bipolar disorder, unspecified; F90.9 Attention-deficit hyperactivity disorder, unspecified type; F17.210 Nicotine dependence, cigarettes, uncomplicated; Z71.6 Tobacco abuse counseling
CPT/HCPCS: 80306; 81003; 99406

== ENCOUNTER 2018-10-23 15:56 | Emergency (ER) | payer SELFPAY ==
[~2018-10-23 15:56] MED LIST: traZODone HCl 50 MG TAB ONE
[2018-10-23 16:37] LABS: #Eosinphils 0.1 thou/uL (0.0-0.7); #Lymphocytes 1.8 thou/uL (1.20-3.40); #Monocytes 0.6 thou/uL (0.11-0.59); #Neutrophils 8.3 thou/uL (1.40-6.50); %Basophils 0.3 % (0.0-1.0); %Lymphocytes 16.9 % (21.0-51.0); %Monocytes 5.5 % (0.0-10.0); %Neutrophils 76.2 % (42.0-75.0); Hemoglobin 15.5 g/dL (14.0-18.0); Mean Corpuscular HGB CONC 34.8 g/dL (32.0-36.0); Mean Corpuscular Hemoglobin 30.8 pg (27.0-31.0); Mean Corpuscular Volume 88.5 fL (78.0-98.0); Mean Platelet Volume 7.3 fL (7.4-10.4); Platelet Count 263 thou/uL (130-400); RBC Distribution Width 11.4 % (11.5-14.5); Red Blood Cell (RBC) Count 5.01 mill/uL (4.70-6.10); White Blood Cell (WBC) Count 10.9 thou/uL (4.8-10.8)
[2018-10-23 17:09] LABS: Acetaminophen Less than 6.0 mcg/mL (10.0-30.0); Alcohol Less than 10 mg/dL (Less than 10); Salicylate Less than 8.0 mg/dL (15.0-30.0)
[2018-10-23 17:11] LABS: ALT (SGPT) 20 U/L (8-55); AST (SGOT) 19 U/L (5-34); Alkaline Phosphatase 140 U/L (40-150); Anion Gap 2 mmol/L (10-20); BUN (Urea Nitrogen) 13 mg/dL (8.9-20.6); Bilirubin, Total 0.6 mg/dL (0.2-1.2); Calc. Creatinine Clearance 0 mL/min (70-130); Calcium 8.9 mg/dL (7.8-10.44); Carbon Dioxide 28 mmol/L (22-29); Chloride 75 mmol/L (98-107); Estimated GFR-MDRD 70; Globulin 2.6 g/dL (2.4-3.5); Glucose 95 mg/dL (70-105); Protein, Total 6.6 g/dL (6.0-8.3)
[2018-10-23 17:16] LABS: Potassium 2.7 mmol/L (3.5-5.1); Sodium 102 mmol/L (136-145)
[2018-10-23 17:51] LABS: Bicarbonate (HCO3v) 31.7 mmol/L (22.0-29.0); CO2 Tension (PvCO2) 48.7 mmHg (41.0-51.0); Calcium, Ionized 1.16 mmol/L (1.12-1.32); Hemoglobin - Calc 15.5 g/dL (12.0-18.0); Lactate 1.74 mmol/L (0.50-2.20); O2 Tension (PvO2) 26.6 mmHg (35.0-45.0); Potassium 3.8 mmol/L (3.4-4.7); T. Carbon Dioxide 33.2 mmol/L (1.0-85.0); pH (Venous) 7.422 (7.35-7.45); vO2 Saturation-calc 49.6 % (94-98)
[2018-10-23 19:27] LABS: Bilirubin Negative (Negative); Blood, Urine Negative (Negative); Clarity TURBID (Clear); Glucose, Urine (Dipstick) Negative (Negative); Leukocyte Negative (Negative); Nitrite Negative (Negative); Protein, Urine (Dipstick) Negative (Neg-Trace); Specific Gravity, Urine 1.019 (1.002-1.036)
[2018-10-23 19:39] LABS: Amphetamine Not Detected (NotDetected); Barbiturates Screen Not Detected (NotDetected); Benzodiazepine Screen Not Detected (NotDetected); Cocaine Metabolite Screen Not Detected (NotDetected); Medtox Control Line Valid? VALID (VALID); Medtox Reader # READER 1; Methadone Not Detected (NotDetected); Methamphetamine Not Detected (NotDetected); Opiate Screen Not Detected (NotDetected); Oxycodone Screen Not Detected (NotDetected); Phencyclidine (PCP) Not Detected (NotDetected); THC/Cannabinoid Screen Not Detected (NotDetected); Tricyclic Screen Not Detected (NotDetected)
== END 2018-10-23 21:35 | disposition home or self-care (01) ==
LOC: ERS 15:56
DX: G47.00 Insomnia, unspecified (principal); F31.9 Bipolar disorder, unspecified; F41.9 Anxiety disorder, unspecified; F90.9 Attention-deficit hyperactivity disorder, unspecified type; F17.210 Nicotine dependence, cigarettes, uncomplicated; Z79.899 Other long term (current) drug therapy
CPT/HCPCS: 36415; 80053; 80306; 80307; 81003; 82330; 82803; 83605; 84443; 85025; 93005; 96360

== ENCOUNTER 2018-11-30 21:19 | Emergency (ER) | payer SELFPAY ==
--- NOTE | 2018-11-30 21:52 | RAD ---
AP VIEW CHEST: 11/30/18 HISTORY: Chest pain. AP view chest is obtained on 11/30/18. Comparison made to previous exam from 11/03/17. AP view chest demonstrates the lungs to be well aerated. No evidence of active intrathoracic disease seen. No evidence of effusions, pneumonia or pneumothorax seen. IMPRESSION: Unremarkable AP view chest. POS: [facility]
[2018-11-30 22:10] LABS: #Eosinphils 0.1 thou/uL (0.0-0.7); #Lymphocytes 1.5 thou/uL (1.20-3.40); #Monocytes 0.8 thou/uL (0.11-0.59); #Neutrophils 12.2 thou/uL (1.40-6.50); %Basophils 0.3 % (0.0-1.0); %Eosinophils 0.6 % (0.0-10.0); %Lymphocytes 10.5 % (21.0-51.0); %Monocytes 5.2 % (0.0-10.0); %Neutrophils 83.4 % (42.0-75.0); Hemoglobin 15.6 g/dL (14.0-18.0); Mean Corpuscular HGB CONC 34.3 g/dL (32.0-36.0); Mean Corpuscular Volume 90.5 fL (78.0-98.0); Mean Platelet Volume 7.3 fL (7.4-10.4); Platelet Count 303 thou/uL (130-400); RBC Distribution Width 11.9 % (11.5-14.5); Red Blood Cell (RBC) Count 5.04 mill/uL (4.70-6.10); White Blood Cell (WBC) Count 14.6 thou/uL (4.8-10.8)
[2018-11-30] MEDS ORDERED: Lorazepam 2 MG/ML VIAL ONE (22:29)
[2018-11-30 22:32] LABS: ALT (SGPT) 29 U/L (8-55); AST (SGOT) 23 U/L (5-34); Albumin 4.2 g/dL (3.5-5.0); Alkaline Phosphatase 151 U/L (40-150); Anion Gap 15 mmol/L (10-20); BUN (Urea Nitrogen) 9 mg/dL (8.9-20.6); Bilirubin, Total 0.6 mg/dL (0.2-1.2); Calc. Creatinine Clearance 0 mL/min (70-130); Calcium 9.6 mg/dL (7.8-10.44); Carbon Dioxide 24 mmol/L (22-29); Chloride 103 mmol/L (98-107); Estimated GFR-MDRD 70; Globulin 2.6 g/dL (2.4-3.5); Glucose 111 mg/dL (70-105); Potassium 3.5 mmol/L (3.5-5.1); Protein, Total 6.8 g/dL (6.0-8.3); Sodium 138 mmol/L (136-145)
--- NOTE | 2018-11-30 23:05 | CT ---
CT BRAIN: 11/30/18 HISTORY: Altered mental status. Noncontrast enhanced CT images of the brain obtained. Comparison made to previous CT from 01/18/18. Noncontrast enhanced CT images of the brain is unremarkable. No evidence of intracranial masses, hemo rrhages, strokes or contusions seen. Ventricles are of normal size. IMPRESSION: Normal CT brain. POS: [facility]
[2018-11-30 23:22] LABS: Acetaminophen Less than 6.0 mcg/mL (10.0-30.0); Alcohol Less than 10 mg/dL (Less than 10); Salicylate Less than 8.0 mg/dL (15.0-30.0)
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
[2018-12-01] MEDS ORDERED: Ketorolac Tromethamine 30 MG/ML VIAL ONE (00:10)
[2018-12-01] MEDS ORDERED: Lorazepam 2 MG/ML VIAL ONE (00:39)
[2018-12-01] MEDS ORDERED: Haloperidol Lactate 5 MG/ML VIAL ONE (00:39)
[2018-12-01 01:03] LABS: Amphetamine Not Detected (NotDetected); Benzodiazepine Screen Detected (NotDetected); Cocaine Metabolite Screen Not Detected (NotDetected); Medtox Reader # READER 4; Methamphetamine Detected (NotDetected); Opiate Screen Not Detected (NotDetected); Phencyclidine (PCP) Not Detected (NotDetected); THC/Cannabinoid Screen Not Detected (NotDetected)
[2018-12-01 01:04] LABS: Barbiturates Screen Not Detected (NotDetected); Medtox Control Line Valid? VALID (VALID); Methadone Not Detected (NotDetected); Oxycodone Screen Not Detected (NotDetected); Tricyclic Screen Not Detected (NotDetected)
[2018-12-01 01:05] LABS: Bilirubin Negative (Negative); Blood, Urine Negative (Negative); Clarity CLEAR (Clear); Glucose, Urine (Dipstick) Negative (Negative); Leukocyte Negative (Negative); Nitrite Negative (Negative); Protein, Urine (Dipstick) Trace mg/dL (Neg-Trace); Specific Gravity, Urine 1.017 (1.002-1.036); Urobilinogen 0.2 mg/dL (0.2-1.0)
[2018-12-01] MEDS ORDERED: Lorazepam 2 MG/ML VIAL IM SCH (12:30)
[2018-12-01] MEDS ORDERED: busPIRone HCl 10 MG TAB PO SCH ×2 (12:30→19:30)
[2018-12-01] MEDS ORDERED: FLUoxetine HCl 20 MG CAP PO SCH (12:30)
[2018-12-01] MEDS ORDERED: traZODone HCl 50 MG TAB PO SCH (12:30)
[2018-12-02] MEDS ORDERED: FLUoxetine HCl 20 MG CAP PO SCH (07:45)
[2018-12-02] MEDS ORDERED: busPIRone HCl 5 MG TAB PO SCH (07:45)
[2018-12-02] MEDS ORDERED: traZODone HCl 50 MG TAB PO SCH (09:00)
[2018-12-03] MEDS ORDERED: busPIRone HCl 10 MG TAB PO SCH ×2 (12:00→18:45)
[2018-12-03] MEDS ORDERED: traZODone HCl 50 MG TAB PO SCH (18:45)
[2018-12-03] MEDS ORDERED: FLUoxetine HCl 20 MG CAP PO SCH (18:45)
== END 2018-11-30 22:37 | disposition home or self-care (01) ==
LOC: ERS 21:19
DX: F15.159 Other stimulant abuse with stimulant-induced psychotic disorder, unspecified (principal); F90.9 Attention-deficit hyperactivity disorder, unspecified type; F17.210 Nicotine dependence, cigarettes, uncomplicated; F41.9 Anxiety disorder, unspecified; Z79.899 Other long term (current) drug therapy
CPT/HCPCS: 36415; 70450; 71045; 80053; 80306; 80307; 81003; 82550; 83880; 84443; 84484; 85025; 93005; 96361; 96372; 96374; 96375; J1630; J1885; J2060

== ENCOUNTER 2018-12-16 01:19 | Emergency (ER) | payer SELFPAY ==
[2018-12-16] MEDS ORDERED: Lidocaine 1% (PF) 30 ML VIAL ONE (02:13)
[2018-12-16] MEDS ORDERED: Adacel (T-DAP) 0.5 ML SYRINGE ONE (02:37)
--- NOTE | 2018-12-16 08:00 | RAD ---
CHEST 1 VIEW: HISTORY: Chest pain. COMPARISON: Radiograph 11/30/2018. FINDINGS: Lungs are clear. No pneumothorax or effusion. Cardiac silhouette and mediastinal contours within no rmal limits. IMPRESSION: 1. No acute intrathoracic abnormality. 2. Likely calcified granuloma projecting over the left upper lobe. POS: [facility]
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
== END 2018-12-16 02:44 | disposition home or self-care (01) ==
LOC: ERS 01:19
DX: S01.81XA Laceration without foreign body of other part of head, initial encounter (principal); F41.9 Anxiety disorder, unspecified; F31.9 Bipolar disorder, unspecified; F90.9 Attention-deficit hyperactivity disorder, unspecified type; G47.00 Insomnia, unspecified; F17.210 Nicotine dependence, cigarettes, uncomplicated; Z79.899 Other long term (current) drug therapy; Y04.0XXA Assault by unarmed brawl or fight, initial encounter
CPT/HCPCS: 12011; 36415; 70450; 71045; 72125; 82550; 84484; 90471; 90715; 93005; J2001

== ENCOUNTER 2018-12-20 12:33 | Emergency (ER) | payer SELFPAY ==
[2018-12-20 13:32] LABS: #Eosinphils 0.3 thou/uL (0.0-0.7); #Lymphocytes 1.8 thou/uL (1.20-3.40); #Monocytes 0.5 thou/uL (0.11-0.59); #Neutrophils 5.2 thou/uL (1.40-6.50); %Basophils 0.5 % (0.0-1.0); %Eosinophils 4.1 % (0.0-10.0); %Lymphocytes 22.7 % (21.0-51.0); %Monocytes 5.9 % (0.0-10.0); %Neutrophils 66.8 % (42.0-75.0); Hemoglobin 14.8 g/dL (14.0-18.0); Mean Corpuscular HGB CONC 33.3 g/dL (32.0-36.0); Mean Corpuscular Hemoglobin 30.9 pg (27.0-31.0); Mean Corpuscular Volume 92.9 fL (78.0-98.0); Mean Platelet Volume 7.3 fL (7.4-10.4); Platelet Count 281 thou/uL (130-400); RBC Distribution Width 12.2 % (11.5-14.5); Red Blood Cell (RBC) Count 4.79 mill/uL (4.70-6.10); White Blood Cell (WBC) Count 7.7 thou/uL (4.8-10.8)
[2018-12-20 13:54] LABS: ALT (SGPT) 16 U/L (8-55); AST (SGOT) 18 U/L (5-34); Acetaminophen Less than 6.0 mcg/mL (10.0-30.0); Albumin 3.5 g/dL (3.5-5.0); Alcohol Less than 10 mg/dL (Less than 10); Alkaline Phosphatase 125 U/L (40-150); Anion Gap 12 mmol/L (10-20); BUN (Urea Nitrogen) 16 mg/dL (8.9-20.6); Bilirubin, Total 0.2 mg/dL (0.2-1.2); Calc. Creatinine Clearance 0 mL/min (70-130); Calcium 8.5 mg/dL (7.8-10.44); Carbon Dioxide 26 mmol/L (22-29); Chloride 106 mmol/L (98-107); Estimated GFR-MDRD 88; Globulin 2.1 g/dL (2.4-3.5); Glucose 81 mg/dL (70-105); Potassium 3.9 mmol/L (3.5-5.1); Protein, Total 5.6 g/dL (6.0-8.3); Salicylate Less than 8.0 mg/dL (15.0-30.0); Sodium 140 mmol/L (136-145)
[2018-12-20 15:00] LABS: Amphetamine Not Detected (NotDetected); Barbiturates Screen Not Detected (NotDetected); Benzodiazepine Screen Not Detected (NotDetected); Cocaine Metabolite Screen Not Detected (NotDetected); Medtox Control Line Valid? VALID (VALID); Medtox Reader # READER 4; Methadone Not Detected (NotDetected); Methamphetamine Not Detected (NotDetected); Opiate Screen Not Detected (NotDetected); Oxycodone Screen Not Detected (NotDetected); Phencyclidine (PCP) Not Detected (NotDetected); THC/Cannabinoid Screen Not Detected (NotDetected); Tricyclic Screen Not Detected (NotDetected)
[2018-12-20 18:28] LABS: HBSAg Index 0.24 S/CO (0-0.99); HIV (1/2) Antibody/Antigen Non-Reactive (NonReactive); HIV 1/2 INDEX 0.06 S/CO (<1.00); Hep B Surf Ag Non-Reactive S/CO (NonReactive); Hep C IgG Ab Non-Reactive (NonReactive); Hep C Index 0.04 S/CO (0-0.79)
[2018-12-21] MEDS ORDERED: FLUoxetine HCl 20 MG CAP PO ONE (09:30)
[2018-12-21] MEDS ORDERED: busPIRone HCl 5 MG TAB PO ONE (09:30)
[2018-12-21] MEDS ORDERED: Nicotine 14 MG PATCH TOP SCH (14:00)
[2018-12-21] MEDS ORDERED: risperiDONE 1 MG TAB ONE (18:01)
[2018-12-21] MEDS ORDERED: hydrOXYzine 25 MG TAB ONE (18:01)
[2018-12-21] MEDS ORDERED: Bacitracin Zinc 1 Packet ONE (19:12)
[2018-12-21] MEDS ORDERED: busPIRone HCl 5 MG TAB PO SCH (21:00)
[2018-12-21] MEDS ORDERED: traZODone HCl 50 MG TAB ONE (22:14)
[2018-12-22] MEDS ORDERED: FLUoxetine HCl 20 MG CAP PO SCH (09:00)
[2018-12-22] MEDS ORDERED: traZODone HCl 50 MG TAB PO PRN (18:54)
[2018-12-23] MEDS ORDERED: Nicotine 21 MG PATCH TOP SCH (09:00)
== END 2018-12-20 14:52 | disposition home or self-care (01) ==
LOC: ERS 12:33
DX: F31.9 Bipolar disorder, unspecified (principal); S01.21XD Laceration without foreign body of nose, subsequent encounter; F90.9 Attention-deficit hyperactivity disorder, unspecified type; F17.210 Nicotine dependence, cigarettes, uncomplicated; Z79.899 Other long term (current) drug therapy
CPT/HCPCS: 36415; 80053; 80306; 80307; 85025; 86803; 87340; 87389; 99285

== ENCOUNTER 2018-12-26 15:14 | Emergency (ER) | payer SELFPAY ==
[2018-12-26] MEDS ORDERED: Lorazepam 1 MG TAB ONE (15:55)
--- NOTE | 2018-12-26 16:03 | RAD ---
CHEST 1 VIEW: Date: 12/26/18 HISTORY: Anxiety. Dyspnea. COMPARISON: 12/16/18. FINDINGS: Cardiac silhouette is magnified by projection. Pulmonary vasculature is unremarkable. Mediastinum is midline. No lobar consolidation or evidence of pneumothorax. secured entrance monitor leads overlie the chest. IMPRESSION: No active cardiopulmonary abnormalities are demonstrated. POS: [facility]
[2018-12-26 16:08] LABS: #Eosinphils 0.2 thou/uL (0.0-0.7); #Monocytes 0.8 thou/uL (0.11-0.59); #Neutrophils 6.2 thou/uL (1.40-6.50); %Basophils 0.4 % (0.0-1.0); %Eosinophils 1.9 % (0.0-10.0); %Monocytes 8.3 % (0.0-10.0); %Neutrophils 67.4 % (42.0-75.0); Hemoglobin 14.9 g/dL (14.0-18.0); Mean Corpuscular HGB CONC 34.4 g/dL (32.0-36.0); Mean Corpuscular Hemoglobin 30.6 pg (27.0-31.0); Mean Corpuscular Volume 88.9 fL (78.0-98.0); Mean Platelet Volume 7.4 fL (7.4-10.4); Platelet Count 289 thou/uL (130-400); Red Blood Cell (RBC) Count 4.89 mill/uL (4.70-6.10); White Blood Cell (WBC) Count 9.3 thou/uL (4.8-10.8)
[2018-12-26 16:29] LABS: ALT (SGPT) 36 U/L (8-55); AST (SGOT) 34 U/L (5-34); Albumin 3.8 g/dL (3.5-5.0); Alcohol Less than 10 mg/dL (Less than 10); Alkaline Phosphatase 147 U/L (40-150); Anion Gap 12 mmol/L (10-20); BUN (Urea Nitrogen) 19 mg/dL (8.9-20.6); Bilirubin, Total 0.5 mg/dL (0.2-1.2); CK (CPK) 442 U/L (30-200); Calc. Creatinine Clearance 0 mL/min (70-130); Calcium 9.1 mg/dL (7.8-10.44); Carbon Dioxide 23 mmol/L (22-29); Chloride 106 mmol/L (98-107); Estimated GFR-MDRD 75; Globulin 2.3 g/dL (2.4-3.5); Glucose 108 mg/dL (70-105); Protein, Total 6.1 g/dL (6.0-8.3); Sodium 137 mmol/L (136-145)
[2018-12-26 16:30] LABS: Acetaminophen Less than 6.0 mcg/mL (10.0-30.0); Alcohol Less than 10 mg/dL (Less than 10); Salicylate Less than 8.0 mg/dL (15.0-30.0)
[2018-12-26 16:33] LABS: Bilirubin Negative (Negative); Blood, Urine Negative (Negative); Clarity CLEAR (Clear); Glucose, Urine (Dipstick) Negative (Negative); Leukocyte Negative (Negative); Nitrite Negative (Negative); Protein, Urine (Dipstick) Negative (Neg-Trace); Specific Gravity, Urine 1.025 (1.002-1.036)
[2018-12-26 16:41] LABS: Amphetamine Detected (NotDetected); Barbiturates Screen Not Detected (NotDetected); Benzodiazepine Screen Not Detected (NotDetected); Cocaine Metabolite Screen Not Detected (NotDetected); Medtox Control Line Valid? VALID (VALID); Medtox Reader # READER 1; Methadone Not Detected (NotDetected); Methamphetamine Not Detected (NotDetected); Opiate Screen Not Detected (NotDetected); Oxycodone Screen Not Detected (NotDetected); Phencyclidine (PCP) Not Detected (NotDetected); THC/Cannabinoid Screen Not Detected (NotDetected); Tricyclic Screen Not Detected (NotDetected)
== END 2018-12-26 17:20 | disposition home or self-care (01) ==
LOC: ERS 15:14
DX: F41.9 Anxiety disorder, unspecified (principal); F31.9 Bipolar disorder, unspecified; F90.9 Attention-deficit hyperactivity disorder, unspecified type; F17.210 Nicotine dependence, cigarettes, uncomplicated; Z79.899 Other long term (current) drug therapy
CPT/HCPCS: 36415; 71045; 80053; 80306; 80307; 81003; 82550; 83735; 83880; 84443; 84484; 85025; 93005

== ENCOUNTER 2019-01-10 19:02 | Emergency (ER) | payer SELFPAY ==
[2019-01-10 20:16] LABS: #Basophils 0.1 thou/uL (0.0-0.2); #Monocytes 2.1 thou/uL (0.11-0.59); #Neutrophils 11.8 thou/uL (1.40-6.50); %Basophils 0.3 % (0.0-1.0); %Eosinophils 0.2 % (0.0-10.0); %Lymphocytes 17.7 % (21.0-51.0); %Monocytes 12.4 % (0.0-10.0); %Neutrophils 69.4 % (42.0-75.0); Hemoglobin 15.3 g/dL (14.0-18.0); Mean Corpuscular Hemoglobin 30.6 pg (27.0-31.0); Mean Corpuscular Volume 87.4 fL (78.0-98.0); Mean Platelet Volume 7.7 fL (7.4-10.4); Platelet Count 387 thou/uL (130-400); RBC Distribution Width 11.9 % (11.5-14.5); Red Blood Cell (RBC) Count 4.99 mill/uL (4.70-6.10)
[2019-01-10 20:41] LABS: ALT (SGPT) 32 U/L (8-55); AST (SGOT) 48 U/L (5-34); Acetaminophen Less than 6.0 mcg/mL (10.0-30.0); Albumin 4.2 g/dL (3.5-5.0); Alcohol Less than 10 mg/dL (Less than 10); Alkaline Phosphatase 119 U/L (40-150); Anion Gap 17 mmol/L (10-20); BUN (Urea Nitrogen) 16 mg/dL (8.9-20.6); Bilirubin, Total 1.8 mg/dL (0.2-1.2); CK (CPK) 1352 U/L (30-200); Calc. Creatinine Clearance 0 mL/min (70-130); Calcium 9.7 mg/dL (7.8-10.44); Carbon Dioxide 21 mmol/L (22-29); Chloride 104 mmol/L (98-107); Estimated GFR-MDRD 53; Globulin 2.8 g/dL (2.4-3.5); Glucose 87 mg/dL (70-105); Potassium 3.7 mmol/L (3.5-5.1); Salicylate Less than 8.0 mg/dL (15.0-30.0); Sodium 138 mmol/L (136-145)
[2019-01-10 21:08] LABS: Bilirubin Moderate (Negative); Blood, Urine Negative (Negative); Clarity CLEAR (Clear); Glucose, Urine (Dipstick) Negative (Negative); Leukocyte Trace (Negative); Nitrite Negative (Negative); Protein, Urine (Dipstick) 30 mg/dL (Neg-Trace); Specific Gravity, Urine 1.033 (1.002-1.036); pH, Urine 5.5 (5.0-9.0)
[2019-01-10 21:10] LABS: Bacteria/HPF None Seen HPF (None Seen); Hyaline Casts/LPF 7-10 HYALINE CAST LPF (0-3 Hyaline); Pathc Cast-AUWi Flag 0.81 (0-2.49); Squamous Epithelial 0-3 HPF (0-3); WBC/HPF 0-3 HPF (0-3)
[2019-01-10 21:20] LABS: Medtox Reader # READER 1
[2019-01-10 21:21] LABS: Amphetamine Detected (NotDetected); Barbiturates Screen Not Detected (NotDetected); Benzodiazepine Screen Not Detected (NotDetected); Cocaine Metabolite Screen Not Detected (NotDetected); Medtox Control Line Valid? VALID (VALID); Methadone Not Detected (NotDetected); Methamphetamine Detected (NotDetected); Opiate Screen Not Detected (NotDetected); Oxycodone Screen Not Detected (NotDetected); Phencyclidine (PCP) Not Detected (NotDetected); THC/Cannabinoid Screen Detected (NotDetected); Tricyclic Screen Not Detected (NotDetected)
[2019-01-10] MEDS ORDERED: Lorazepam 2 MG/ML VIAL ONE (22:41)
[2019-01-11] MEDS ORDERED: Lorazepam 2 MG/ML VIAL ONE (05:01)
[2019-01-11] MEDS ORDERED: Diazepam 5 MG TAB ONE (10:26)
[2019-01-11] MEDS ORDERED: Nicotine 14 MG PATCH ONE ×2 (10:27→19:31)
[2019-01-11] MEDS ORDERED: hydrOXYzine 25 MG TAB ONE (22:10)
[2019-01-12] MEDS ORDERED: Acetaminophen 325 MG TAB PO PRN (15:20)
[2019-01-12] MEDS ORDERED: Ziprasidone 20 MG CAP PO SCH (15:30)
[2019-01-12] MEDS ORDERED: Nicotine 21 MG PATCH TOP SCH (15:30)
[2019-01-13] MEDS ORDERED: Nicotine 21 MG PATCH TD SCH (07:15)
== END 2019-01-14 12:46 | disposition home or self-care (01) ==
LOC: ERS 19:02
DX: F19.10 Other psychoactive substance abuse, uncomplicated (principal); F43.20 Adjustment disorder, unspecified; F31.9 Bipolar disorder, unspecified; F41.9 Anxiety disorder, unspecified; F90.9 Attention-deficit hyperactivity disorder, unspecified type; F17.210 Nicotine dependence, cigarettes, uncomplicated
CPT/HCPCS: 36415; 80053; 80306; 80307; 81003; 81015; 82550; 84443; 85025; 96361; 96374; 96376; J2060

== ENCOUNTER 2019-02-10 13:57 | Emergency (ER) | payer SELFPAY ==
[2019-02-10 14:38] LABS: #Basophils 0.1 thou/uL (0.0-0.2); #Eosinphils 0.1 thou/uL (0.0-0.7); #Lymphocytes 2.5 thou/uL (1.20-3.40); #Monocytes 0.9 thou/uL (0.11-0.59); #Neutrophils 8.8 thou/uL (1.40-6.50); %Basophils 0.7 % (0.0-1.0); %Eosinophils 1.2 % (0.0-10.0); %Lymphocytes 20.1 % (21.0-51.0); %Monocytes 7.2 % (0.0-10.0); %Neutrophils 70.8 % (42.0-75.0); Mean Corpuscular HGB CONC 34.5 g/dL (32.0-36.0); Mean Corpuscular Hemoglobin 30.5 pg (27.0-31.0); Mean Corpuscular Volume 88.3 fL (78.0-98.0); Platelet Count 408 thou/uL (130-400); Red Blood Cell (RBC) Count 4.92 mill/uL (4.70-6.10); White Blood Cell (WBC) Count 12.5 thou/uL (4.8-10.8)
[2019-02-10 15:00] LABS: Acetaminophen Less than 6.0 mcg/mL (10.0-30.0); Alcohol Less than 10 mg/dL (Less than 10); Salicylate Less than 8.0 mg/dL (15.0-30.0)
[2019-02-10 15:01] LABS: ALT (SGPT) 24 U/L (8-55); AST (SGOT) 24 U/L (5-34); Albumin 4.4 g/dL (3.5-5.0); Alkaline Phosphatase 150 U/L (40-150); Anion Gap 15 mmol/L (10-20); BUN (Urea Nitrogen) 12 mg/dL (8.9-20.6); Bilirubin, Total 0.7 mg/dL (0.2-1.2); Calc. Creatinine Clearance 0 mL/min (70-130); Calcium 9.8 mg/dL (7.8-10.44); Carbon Dioxide 22 mmol/L (22-29); Chloride 104 mmol/L (98-107); Estimated GFR-MDRD 63; Globulin 2.8 g/dL (2.4-3.5); Glucose 96 mg/dL (70-105); Potassium 3.2 mmol/L (3.5-5.1); Protein, Total 7.2 g/dL (6.0-8.3); Sodium 138 mmol/L (136-145)
== END 2019-02-10 14:34 | disposition home or self-care (01) ==
LOC: ERS 13:57
DX: F29 Unspecified psychosis not due to a substance or known physiological condition (principal); F19.10 Other psychoactive substance abuse, uncomplicated; F41.9 Anxiety disorder, unspecified; F31.9 Bipolar disorder, unspecified; F90.9 Attention-deficit hyperactivity disorder, unspecified type; F17.210 Nicotine dependence, cigarettes, uncomplicated
CPT/HCPCS: 36415; 80307; 84443; 94760

== ENCOUNTER 2019-02-10 20:37 | Emergency (ER) | payer SELFPAY ==
[2019-02-10 21:31] LABS: #Eosinphils 0.2 thou/uL (0.0-0.7); #Lymphocytes 2.5 thou/uL (1.20-3.40); #Neutrophils 8.5 thou/uL (1.40-6.50); %Basophils 0.3 % (0.0-1.0); %Eosinophils 1.6 % (0.0-10.0); %Lymphocytes 20.4 % (21.0-51.0); %Monocytes 8.1 % (0.0-10.0); %Neutrophils 69.6 % (42.0-75.0); Hemoglobin 13.7 g/dL (14.0-18.0); Mean Corpuscular HGB CONC 34.2 g/dL (32.0-36.0); Mean Corpuscular Hemoglobin 30.2 pg (27.0-31.0); Mean Corpuscular Volume 88.2 fL (78.0-98.0); Mean Platelet Volume 7.2 fL (7.4-10.4); Platelet Count 337 thou/uL (130-400); RBC Distribution Width 12.1 % (11.5-14.5); Red Blood Cell (RBC) Count 4.55 mill/uL (4.70-6.10); White Blood Cell (WBC) Count 12.2 thou/uL (4.8-10.8)
--- NOTE | 2019-02-10 21:35 | RAD ---
EXAM: Chest one view: HISTORY: Chest pain COMPARISON: 02/10/2019 FINDINGS: Old granulomatous disease. Heart size: Within normal limits. The lungs: Clear of acute process. No evidence for pneumonia, pleural effusion, acute edema, or pneumothorax, or other significant acute process. IMPRESSION: No significant acute intrathoracic disease. Stable from prior study.
[2019-02-10 21:51] LABS: ALT (SGPT) 22 U/L (8-55); AST (SGOT) 25 U/L (5-34); Alkaline Phosphatase 134 U/L (40-150); Anion Gap 13 mmol/L (10-20); BUN (Urea Nitrogen) 13 mg/dL (8.9-20.6); Bilirubin, Total 0.6 mg/dL (0.2-1.2); CK (CPK) 367 U/L (30-200); Calc. Creatinine Clearance 0 mL/min (70-130); Calcium 9.2 mg/dL (7.8-10.44); Carbon Dioxide 25 mmol/L (22-29); Chloride 105 mmol/L (98-107); Estimated GFR-MDRD 55; Globulin 2.5 g/dL (2.4-3.5); Glucose 77 mg/dL (70-105); Lipase 20 U/L (8-78); Potassium 4.5 mmol/L (3.5-5.1); Protein, Total 6.5 g/dL (6.0-8.3); Sodium 138 mmol/L (136-145)
== END 2019-02-10 23:00 ==
LOC: ERS 20:37
DX: F15.10 Other stimulant abuse, uncomplicated (principal); F41.9 Anxiety disorder, unspecified; G47.00 Insomnia, unspecified; F31.9 Bipolar disorder, unspecified; F90.9 Attention-deficit hyperactivity disorder, unspecified type; F17.210 Nicotine dependence, cigarettes, uncomplicated
CPT/HCPCS: 36415; 71045; 82550; 83690; 93005

== ENCOUNTER 2019-03-13 08:31 | Emergency (ER) | payer SELFPAY | END 2019-03-13 09:07 | disposition home or self-care (01) | LOC: ERS 08:31 | DX: F15.10 Other stimulant abuse, uncomplicated (principal); F41.9 Anxiety disorder, unspecified; F31.9 Bipolar disorder, unspecified; F17.210 Nicotine dependence, cigarettes, uncomplicated | CPT/HCPCS: 99281 ==

== ENCOUNTER 2019-03-28 23:22 | Emergency (ER) | payer SELFPAY ==
[2019-03-28 23:53] LABS: #Basophils 0.1 thou/uL (0.0-0.2); #Eosinphils 0.2 thou/uL (0.0-0.7); #Lymphocytes 2.6 thou/uL (1.20-3.40); #Monocytes 0.7 thou/uL (0.11-0.59); #Neutrophils 6.3 thou/uL (1.40-6.50); %Basophils 0.8 % (0.0-1.0); %Eosinophils 1.7 % (0.0-10.0); %Lymphocytes 26.2 % (21.0-51.0); %Neutrophils 64.4 % (42.0-75.0); Hemoglobin 13.9 g/dL (14.0-18.0); Mean Corpuscular HGB CONC 34.2 g/dL (32.0-36.0); Mean Corpuscular Hemoglobin 29.7 pg (27.0-31.0); Mean Corpuscular Volume 86.9 fL (78.0-98.0); Mean Platelet Volume 6.7 fL (7.4-10.4); Platelet Count 337 thou/uL (130-400); RBC Distribution Width 12.9 % (11.5-14.5); Red Blood Cell (RBC) Count 4.67 mill/uL (4.70-6.10); White Blood Cell (WBC) Count 9.8 thou/uL (4.8-10.8)
[2019-03-29 00:16] LABS: ALT (SGPT) 30 U/L (8-55); AST (SGOT) 35 U/L (5-34); Albumin 3.9 g/dL (3.5-5.0); Alkaline Phosphatase 124 U/L (40-150); Anion Gap 13 mmol/L (10-20); BUN (Urea Nitrogen) 10 mg/dL (8.9-20.6); Bilirubin, Total 0.8 mg/dL (0.2-1.2); CK (CPK) 622 U/L (30-200); Calc. Creatinine Clearance 0 mL/min (70-130); Calcium 9.3 mg/dL (7.8-10.44); Carbon Dioxide 22 mmol/L (22-29); Chloride 107 mmol/L (98-107); Estimated GFR-MDRD 79; Globulin 2.4 g/dL (2.4-3.5); Glucose 90 mg/dL (70-105); Lipase 11 U/L (8-78); Potassium 3.8 mmol/L (3.5-5.1); Protein, Total 6.3 g/dL (6.0-8.3); Sodium 138 mmol/L (136-145)
== END 2019-03-29 00:47 | disposition home or self-care (01) ==
LOC: ERS 23:22
DX: R09.1 Pleurisy (principal); F90.9 Attention-deficit hyperactivity disorder, unspecified type; F31.9 Bipolar disorder, unspecified; F41.9 Anxiety disorder, unspecified; F17.210 Nicotine dependence, cigarettes, uncomplicated
CPT/HCPCS: 36415; 80053; 82550; 83690; 84484; 85025; 93005

== ENCOUNTER 2019-05-05 12:00 | Emergency (ER) | payer SELFPAY ==
[2019-05-05 12:31] LABS: #Basophils 0.1 thou/uL (0.0-0.2); #Eosinphils 0.3 thou/uL (0.0-0.7); #Monocytes 0.6 thou/uL (0.11-0.59); #Neutrophils 6.3 thou/uL (1.40-6.50); %Basophils 0.5 % (0.0-1.0); %Eosinophils 2.9 % (0.0-10.0); %Monocytes 6.1 % (0.0-10.0); %Neutrophils 68.4 % (42.0-75.0); Hemoglobin 15.5 g/dL (14.0-18.0); Mean Corpuscular HGB CONC 32.9 g/dL (32.0-36.0); Mean Corpuscular Volume 88.3 fL (78.0-98.0); Mean Platelet Volume 7.4 fL (7.4-10.4); Platelet Count 298 thou/uL (130-400); RBC Distribution Width 12.9 % (11.5-14.5); Red Blood Cell (RBC) Count 5.35 mill/uL (4.70-6.10); White Blood Cell (WBC) Count 9.3 thou/uL (4.8-10.8)
[2019-05-05 12:51] LABS: ALT (SGPT) 19 U/L (8-55); AST (SGOT) 22 U/L (5-34); Albumin 3.5 g/dL (3.5-5.0); Alkaline Phosphatase 134 U/L (40-150); Anion Gap 12 mmol/L (10-20); BUN (Urea Nitrogen) 16 mg/dL (8.9-20.6); Bilirubin, Total 0.8 mg/dL (0.2-1.2); Calc. Creatinine Clearance 0 mL/min (70-130); Calcium 8.8 mg/dL (7.8-10.44); Carbon Dioxide 25 mmol/L (22-29); Chloride 105 mmol/L (98-107); Estimated GFR-MDRD 71; Globulin 2.1 g/dL (2.4-3.5); Glucose 124 mg/dL (70-105); Potassium 4.2 mmol/L (3.5-5.1); Protein, Total 5.6 g/dL (6.0-8.3); Sodium 138 mmol/L (136-145)
--- NOTE | 2019-05-05 13:18 | RAD ---
CHEST ONE VIEW: HISTORY: Chest pain while walking. COMPARISON: 02/10/2019 FINDINGS: Heart size is normal. Lungs are clear. IMPRESSION: No acute intrathoracic disease. Old granulomatous disease. Stable from prior study. No new process . POS: [facility]
[2019-05-05 13:35] LABS: Acetaminophen Less than 6.0 mcg/mL (10.0-30.0); Alcohol Less than 10 mg/dL (Less than 10); Salicylate Less than 8.0 mg/dL (15.0-30.0)
[2019-05-05 15:41] LABS: Bilirubin Negative (Negative); Blood, Urine Negative (Negative); Glucose, Urine (Dipstick) Negative (Negative); Leukocyte Negative (Negative); Nitrite Negative (Negative); Protein, Urine (Dipstick) Negative (Neg-Trace)
[2019-05-05 15:43] LABS: Clarity Clear (Clear)
[2019-05-05 15:52] LABS: Amphetamine Not Detected (NotDetected); Barbiturates Screen Not Detected (NotDetected); Benzodiazepine Screen Not Detected (NotDetected); Cocaine Metabolite Screen Not Detected (NotDetected); Medtox Control Line Valid? VALID (VALID); Medtox Reader # READER 1; Methadone Not Detected (NotDetected); Methamphetamine Not Detected (NotDetected); Opiate Screen Not Detected (NotDetected); Oxycodone Screen Not Detected (NotDetected); Phencyclidine (PCP) Not Detected (NotDetected); THC/Cannabinoid Screen Not Detected (NotDetected); Tricyclic Screen Not Detected (NotDetected)
--- NOTE | 2019-05-07 13:24 | EKG ---
Test Reason : Blood Pressure : / mmHG Vent. Rate : 076 BPM Atrial Rate : 076 BPM P-R Int : 178 ms QRS Dur : 100 ms QT Int : 360 ms P-R-T Axes : 074 094 073 degrees QTc Int : 405 ms Normal sinus rhythm Rightward axis Incomplete right bundle branch block Borderline ECG Confirmed by DESTINI LAURA M.D. ([id number]), script editor [employer] ([id number]) on 05/07/2019 1:24:22 PM Referred By: Confirmed By:DESTINI LAURA M.D.
== END 2019-05-05 16:51 | disposition home or self-care (01) ==
LOC: ERS 12:00
DX: R07.89 Other chest pain (principal); F90.9 Attention-deficit hyperactivity disorder, unspecified type; F17.210 Nicotine dependence, cigarettes, uncomplicated
CPT/HCPCS: 36415; 71045; 80053; 80306; 80307; 81003; 84443; 84484; 85025; 93005

== ENCOUNTER 2019-05-21 02:37 | Emergency (ER) | payer SELFPAY ==
[2019-05-21 03:29] LABS: #Eosinphils 0.2 thou/uL (0.0-0.7); #Lymphocytes 2.3 thou/uL (1.20-3.40); #Monocytes 0.7 thou/uL (0.11-0.59); %Basophils 0.3 % (0.0-1.0); %Eosinophils 1.7 % (0.0-10.0); %Lymphocytes 20.5 % (21.0-51.0); %Monocytes 6.3 % (0.0-10.0); %Neutrophils 71.2 % (42.0-75.0); Hemoglobin 14.3 g/dL (14.0-18.0); Mean Corpuscular HGB CONC 34.9 g/dL (32.0-36.0); Mean Corpuscular Hemoglobin 29.9 pg (27.0-31.0); Mean Corpuscular Volume 85.5 fL (78.0-98.0); Mean Platelet Volume 8.2 fL (7.4-10.4); Platelet Count 226 thou/uL (130-400); RBC Distribution Width 12.8 % (11.5-14.5); Red Blood Cell (RBC) Count 4.79 mill/uL (4.70-6.10); White Blood Cell (WBC) Count 11.3 thou/uL (4.8-10.8)
[2019-05-21 03:37] LABS: Bilirubin Negative (Negative); Blood, Urine Negative (Negative); Clarity Clear (Clear); Glucose, Urine (Dipstick) Normal (Negative); Leukocyte Negative Leu/uL (Negative); Nitrite Negative (Negative); Protein, Urine (Dipstick) Negative (Neg-Trace)
[2019-05-21 03:48] LABS: Acetaminophen Less than 6.0 mcg/mL (10.0-30.0); Alcohol Less than 10 mg/dL (Less than 10); Salicylate Less than 8.0 mg/dL (15.0-30.0)
[2019-05-21 03:51] LABS: ALT (SGPT) 19 U/L (8-55); AST (SGOT) 26 U/L (5-34); Albumin 3.8 g/dL (3.5-5.0); Alkaline Phosphatase 153 U/L (40-150); Anion Gap 13 mmol/L (10-20); BUN (Urea Nitrogen) 23 mg/dL (8.9-20.6); Bilirubin, Total 0.4 mg/dL (0.2-1.2); CK (CPK) 372 U/L (30-200); Calc. Creatinine Clearance 0 mL/min (70-130); Carbon Dioxide 24 mmol/L (22-29); Chloride 104 mmol/L (98-107); Estimated GFR-MDRD 52; Globulin 2.3 g/dL (2.4-3.5); Glucose 82 mg/dL (70-105); Potassium 3.7 mmol/L (3.5-5.1); Protein, Total 6.1 g/dL (6.0-8.3); Sodium 137 mmol/L (136-145)
[2019-05-21 03:53] LABS: Amphetamine Not Detected (NotDetected); Barbiturates Screen Not Detected (NotDetected); Benzodiazepine Screen Not Detected (NotDetected); Cocaine Metabolite Screen Not Detected (NotDetected); Medtox Control Line Valid? VALID (VALID); Medtox Reader # READER 4; Methadone Not Detected (NotDetected); Methamphetamine Not Detected (NotDetected); Opiate Screen Not Detected (NotDetected); Oxycodone Screen Not Detected (NotDetected); Phencyclidine (PCP) Not Detected (NotDetected); THC/Cannabinoid Screen Not Detected (NotDetected); Tricyclic Screen Not Detected (NotDetected)
== END 2019-05-21 07:05 | disposition home or self-care (01) ==
LOC: ERS 02:37
DX: F43.20 Adjustment disorder, unspecified (principal); R07.89 Other chest pain; G47.00 Insomnia, unspecified; F41.9 Anxiety disorder, unspecified; F31.9 Bipolar disorder, unspecified; F90.9 Attention-deficit hyperactivity disorder, unspecified type; F17.210 Nicotine dependence, cigarettes, uncomplicated
CPT/HCPCS: 36415; 80053; 80306; 80307; 81003; 82550; 84443; 85025; 93005

== ENCOUNTER 2019-07-07 16:19 | Emergency (ER) | payer SELFPAY ==
--- NOTE | 2019-07-07 17:08 | RAD ---
RADIOGRAPH CHEST 2 VIEWS: DATE: 07/07/2019 HISTORY: 29-year-old male with cough FINDINGS: The lungs are clear. The cardiomediastinal silhouette and hilar shadows appear normal. There is no pl eural effusion or pneumothorax. No osseous abnormality is identified. IMPRESSION: Normal
== END 2019-07-07 17:20 | disposition home or self-care (01) ==
LOC: ERS 16:19
DX: R05 Cough (principal); F41.9 Anxiety disorder, unspecified; F32.9 Major depressive disorder, single episode, unspecified; F90.9 Attention-deficit hyperactivity disorder, unspecified type
CPT/HCPCS: 71046

== ENCOUNTER 2019-07-17 04:53 | Emergency (ER) | payer SELFPAY ==
[2019-07-17 05:46] LABS: #Eosinphils 0.1 thou/uL (0.0-0.7); #Monocytes 0.6 thou/uL (0.11-0.59); #Neutrophils 7.5 thou/uL (1.40-6.50); %Basophils 0.4 % (0.0-1.0); %Eosinophils 1.3 % (0.0-10.0); %Lymphocytes 19.4 % (21.0-51.0); %Monocytes 5.3 % (0.0-10.0); %Neutrophils 73.5 % (42.0-75.0); Hemoglobin 13.8 g/dL (14.0-18.0); Mean Corpuscular HGB CONC 34.4 g/dL (32.0-36.0); Mean Corpuscular Volume 87.2 fL (78.0-98.0); Mean Platelet Volume 7.5 fL (7.4-10.4); Platelet Count 279 thou/uL (130-400); RBC Distribution Width 12.4 % (11.5-14.5); Red Blood Cell (RBC) Count 4.61 mill/uL (4.70-6.10); White Blood Cell (WBC) Count 10.2 thou/uL (4.8-10.8)
[2019-07-17 06:04] LABS: Amphetamine Not Detected (NotDetected); Barbiturates Screen Not Detected (NotDetected); Benzodiazepine Screen Not Detected (NotDetected); Cocaine Metabolite Screen Not Detected (NotDetected); Medtox Control Line Valid? VALID (VALID); Medtox Reader # READER 4; Methadone Not Detected (NotDetected); Methamphetamine Not Detected (NotDetected); Opiate Screen Not Detected (NotDetected); Oxycodone Screen Not Detected (NotDetected); Phencyclidine (PCP) Not Detected (NotDetected); THC/Cannabinoid Screen Not Detected (NotDetected); Tricyclic Screen Detected (NotDetected)
[2019-07-17 06:06] LABS: Acetaminophen Less than 6.0 mcg/mL (10.0-30.0); Alcohol Less than 10 mg/dL (Less than 10); Salicylate Less than 8.0 mg/dL (15.0-30.0)
[2019-07-17 06:07] LABS: ALT (SGPT) 18 U/L (8-55); AST (SGOT) 24 U/L (5-34); Albumin 4.1 g/dL (3.5-5.0); Alkaline Phosphatase 171 U/L (40-150); Anion Gap 10 mmol/L (10-20); BUN (Urea Nitrogen) 19 mg/dL (8.9-20.6); Bilirubin, Total 0.7 mg/dL (0.2-1.2); Calc. Creatinine Clearance 0 mL/min (70-130); Calcium 9.3 mg/dL (7.8-10.44); Carbon Dioxide 26 mmol/L (22-29); Chloride 105 mmol/L (98-107); Estimated GFR-MDRD 73; Globulin 2.6 g/dL (2.4-3.5); Glucose 115 mg/dL (70-105); Potassium 3.3 mmol/L (3.5-5.1); Protein, Total 6.7 g/dL (6.0-8.3); Sodium 138 mmol/L (136-145)
== END 2019-07-17 13:14 | disposition home or self-care (01) ==
LOC: ERS 04:53
DX: F41.1 Generalized anxiety disorder (principal); F17.210 Nicotine dependence, cigarettes, uncomplicated; F31.9 Bipolar disorder, unspecified; Z79.899 Other long term (current) drug therapy
CPT/HCPCS: 36415; 80053; 80306; 80307; 85025; 99283

== ENCOUNTER 2019-08-14 17:12 | Emergency (ER) | payer SELFPAY ==
[2019-08-14 18:23] LABS: #Eosinphils 0.1 thou/uL (0.0-0.7); #Lymphocytes 1.1 thou/uL (1.20-3.40); #Monocytes 0.5 thou/uL (0.11-0.59); #Neutrophils 7.7 thou/uL (1.40-6.50); %Basophils 0.1 % (0.0-1.0); %Eosinophils 0.6 % (0.0-10.0); %Monocytes 5.7 % (0.0-10.0); %Neutrophils 81.6 % (42.0-75.0); Hemoglobin 14.6 g/dL (14.0-18.0); Mean Corpuscular HGB CONC 34.5 g/dL (32.0-36.0); Mean Platelet Volume 7.8 fL (7.4-10.4); Platelet Count 244 thou/uL (130-400); RBC Distribution Width 12.2 % (11.5-14.5); Red Blood Cell (RBC) Count 4.87 mill/uL (4.70-6.10); White Blood Cell (WBC) Count 9.4 thou/uL (4.8-10.8)
[2019-08-14 18:43] LABS: ALT (SGPT) 16 U/L (8-55); AST (SGOT) 24 U/L (5-34); Albumin 4.6 g/dL (3.5-5.0); Alcohol Less than 10 mg/dL (Less than 10); Alkaline Phosphatase 149 U/L (40-110); Anion Gap 13 mmol/L (10-20); BUN (Urea Nitrogen) 14 mg/dL (8.9-20.6); Bilirubin, Total 0.9 mg/dL (0.2-1.2); Calc. Creatinine Clearance 0 mL/min (70-130); Calcium 9.6 mg/dL (7.8-10.44); Carbon Dioxide 25 mmol/L (22-29); Chloride 100 mmol/L (98-107); Estimated GFR-MDRD 86; Globulin 2.9 g/dL (2.4-3.5); Glucose 84 mg/dL (70-105); Potassium 3.8 mmol/L (3.5-5.1); Protein, Total 7.5 g/dL (6.0-8.3); Sodium 134 mmol/L (136-145)
[2019-08-14 18:44] LABS: Acetaminophen Less than 6.0 mcg/mL (10.0-30.0); Alcohol Less than 10 mg/dL (Less than 10); Salicylate Less than 8.0 mg/dL (15.0-30.0)
[2019-08-14 19:17] LABS: Bilirubin Negative (Negative); Blood, Urine Negative (Negative); Clarity Clear (Clear); Glucose, Urine (Dipstick) Normal (Negative); Leukocyte Negative Leu/uL (Negative); Nitrite Negative (Negative); Protein, Urine (Dipstick) Negative (Neg-Trace)
[2019-08-14 19:32] LABS: Amphetamine Not Detected (NotDetected); Barbiturates Screen Not Detected (NotDetected); Benzodiazepine Screen Not Detected (NotDetected); Cocaine Metabolite Screen Not Detected (NotDetected); Medtox Control Line Valid? VALID (VALID); Medtox Reader # READER 4; Methadone Not Detected (NotDetected); Methamphetamine Not Detected (NotDetected); Opiate Screen Not Detected (NotDetected); Oxycodone Screen Not Detected (NotDetected); Phencyclidine (PCP) Not Detected (NotDetected); THC/Cannabinoid Screen Not Detected (NotDetected); Tricyclic Screen Not Detected (NotDetected)
== END 2019-08-14 21:40 | disposition home or self-care (01) ==
LOC: ERS 17:12
DX: F31.9 Bipolar disorder, unspecified (principal); F41.9 Anxiety disorder, unspecified; F90.9 Attention-deficit hyperactivity disorder, unspecified type; F17.210 Nicotine dependence, cigarettes, uncomplicated; Z79.899 Other long term (current) drug therapy
CPT/HCPCS: 36415; 80053; 80306; 80307; 81003; 84443; 85025; 99283

== ENCOUNTER 2020-10-08 16:19 | Emergency (ER) | payer SELFPAY ==
--- NOTE | 2020-10-08 16:54 | RAD ---
Chest AP view INDICATION: 22-year-old male with chest pain and altered mental status COMPARISON: Prior exam dated July 07, 2019 FINDINGS: Lungs: The lungs are generally clear. There is a calcified granuloma in the right upper lobe which i s stable. Cardiac silhouette: The cardiomediastinal silhouette appears within normal limits. Pulmonary vasculature: Normal Pleural spaces: No pleural effusion or pneumothorax is demonstrated. Upper abdomen: No abnormality seen. Osseous structures: No acute osseous abnormality. Additional findings: None. IMPRESSION: No acute cardiopulmonary abnormality.
[2020-10-08 17:23] LABS: #Basophils 0.1 thou/uL (0.0-0.2); #Eosinphils 0.1 thou/uL (0.0-0.7); #Monocytes 0.5 thou/uL (0.11-0.59); #Neutrophils 6.1 thou/uL (1.40-6.50); %Eosinophils 1.4 % (0.0-10.0); %Lymphocytes 22.9 % (21.0-51.0); %Monocytes 5.4 % (0.0-10.0); %Neutrophils 69.4 % (42.0-75.0); Hemoglobin 15.2 g/dL (14.0-18.0); Mean Corpuscular HGB CONC 34.5 g/dL (32.0-36.0); Mean Corpuscular Hemoglobin 31.3 pg (27.0-31.0); Mean Corpuscular Volume 90.6 fL (78.0-98.0); Mean Platelet Volume 7.8 fL (7.4-10.4); Platelet Count 270 thou/uL (130-400); RBC Distribution Width 11.8 % (11.5-14.5); Red Blood Cell (RBC) Count 4.85 mill/uL (4.70-6.10); White Blood Cell (WBC) Count 8.8 thou/uL (4.8-10.8)
[2020-10-08 17:51] LABS: Bilirubin Negative (Negative); Blood, Urine Negative (Negative); Clarity Clear (Clear); Glucose, Urine (Dipstick) Normal (Negative); Ketone, Urine Negative (Negative); Leukocyte Negative Leu/uL (Negative); Nitrite Negative (Negative); Protein, Urine (Dipstick) Negative (Neg-Trace); Specific Gravity, Urine 1.025 (1.002-1.036); pH, Urine 6.5 (5.0-9.0)
[2020-10-08 17:55] LABS: Acetaminophen Less than 6.0 mcg/mL (10.0-30.0); Alcohol Less than 10 mg/dL (Less than 10); Salicylate Less than 8.0 mg/dL (15.0-30.0)
[2020-10-08 17:56] LABS: ALT (SGPT) 13 U/L (8-55); AST (SGOT) 13 U/L (5-34); Albumin 3.8 g/dL (3.5-5.0); Alkaline Phosphatase 114 U/L (40-110); Anion Gap 12 mmol/L (10-20); BUN (Urea Nitrogen) 15 mg/dL (8.9-20.6); Bilirubin, Total 0.4 mg/dL (0.2-1.2); CK (CPK) 119 U/L (30-200); Calc. Creatinine Clearance 0 mL/min (70-130); Calcium 8.4 mg/dL (7.8-10.44); Carbon Dioxide 25 mmol/L (22-29); Chloride 107 mmol/L (98-107); Globulin 2.4 g/dL (2.4-3.5); Glucose 63 mg/dL (70-105); Potassium 3.8 mmol/L (3.5-5.1); Protein, Total 6.2 g/dL (6.0-8.3); Sodium 140 mmol/L (136-145)
[2020-10-08 18:02] LABS: Amphetamine Not Detected (NotDetected); Barbiturates Screen Not Detected (NotDetected); Benzodiazepine Screen Not Detected (NotDetected); Cocaine Metabolite Screen Not Detected (NotDetected); Medtox Control Line Valid? VALID (VALID); Medtox Reader # READER 4; Methadone Not Detected (NotDetected); Methamphetamine Not Detected (NotDetected); Opiate Screen Not Detected (NotDetected); Oxycodone Screen Not Detected (NotDetected); Phencyclidine (PCP) Not Detected (NotDetected); THC/Cannabinoid Screen Not Detected (NotDetected); Tricyclic Screen Not Detected (NotDetected)
[2020-10-08] MEDS ORDERED: Acetaminophen 500 MG TAB ONE (20:44)
--- NOTE | 2020-10-13 16:12 | EKG ---
Test Reason : EMERGENCY EXAM Blood Pressure : / mmHG Vent. Rate : 078 BPM Atrial Rate : 078 BPM P-R Int : 190 ms QRS Dur : 104 ms QT Int : 350 ms P-R-T Axes : 078 095 073 degrees QTc Int : 399 ms Normal sinus rhythm Rightward axis Incomplete right bundle branch block Borderline ECG Confirmed by LULY QUINN, CARLOS ([id number]), image editor NAV [employer]IGH ([id number]) on 10/13/2020 4:12:22 PM Referred By: Confirmed By:CARLOS MAURICIO MD
== END 2020-10-08 21:28 | disposition home or self-care (01) ==
LOC: ERS 16:19
DX: R07.89 Other chest pain (principal); F43.20 Adjustment disorder, unspecified; F17.210 Nicotine dependence, cigarettes, uncomplicated
CPT/HCPCS: 36415; 71045; 80053; 80306; 80307; 81003; 82550; 84484; 85025; 93005

== ENCOUNTER 2021-03-27 19:20 | Emergency (ER) | payer SELFPAY ==
[2021-03-27 20:32] LABS: Bilirubin Negative (Negative); Blood, Urine Negative (Negative); Clarity Clear (Clear); Glucose, Urine (Dipstick) Normal (Negative); Ketone, Urine Negative (Negative); Leukocyte Negative Leu/uL (Negative); Nitrite Negative (Negative); Protein, Urine (Dipstick) 10 mg/dL (Neg-Trace); Specific Gravity, Urine 1.032 (1.002-1.036); Urobilinogen Normal mg/dL (Less than 2); pH, Urine 6.5 (5.0-9.0)
[2021-03-27] MEDS ORDERED: Ziprasidone 20 MG VIAL ONE (20:32)
[2021-03-27] MEDS ORDERED: Sterile Water 10 ML ONE (20:32)
[2021-03-27 20:42] LABS: Amphetamine Detected (NotDetected); Barbiturates Screen Not Detected (NotDetected); Benzodiazepine Screen Not Detected (NotDetected); Cocaine Metabolite Screen Not Detected (NotDetected); Medtox Control Line Valid? VALID (VALID); Medtox Reader # READER 4; Methadone Not Detected (NotDetected); Methamphetamine Detected (NotDetected); Opiate Screen Not Detected (NotDetected); Oxycodone Screen Not Detected (NotDetected); Phencyclidine (PCP) Not Detected (NotDetected); THC/Cannabinoid Screen Not Detected (NotDetected); Tricyclic Screen Not Detected (NotDetected)
[2021-03-27 20:43] LABS: #Eosinphils 0.1 thou/uL (0.0-0.7); #Lymphocytes 2.2 thou/uL (1.20-3.40); #Monocytes 0.5 thou/uL (0.11-0.59); #Neutrophils 5.7 thou/uL (1.40-6.50); %Basophils 0.3 % (0.0-1.0); %Lymphocytes 25.8 % (21.0-51.0); %Monocytes 5.4 % (0.0-10.0); %Neutrophils 67.5 % (42.0-75.0); Hemoglobin 14.5 g/dL (14.0-18.0); Mean Corpuscular HGB CONC 35.6 g/dL (32.0-36.0); Mean Corpuscular Hemoglobin 32.3 pg (27.0-31.0); Mean Corpuscular Volume 90.6 fL (78.0-98.0); Mean Platelet Volume 7.4 fL (7.4-10.4); Platelet Count 263 thou/uL (130-400); RBC Distribution Width 11.7 % (11.5-14.5); White Blood Cell (WBC) Count 8.5 thou/uL (4.8-10.8)
[2021-03-27 21:10] LABS: Acetaminophen Less than 6.0 mcg/mL (10.0-30.0); Alcohol Less than 10 mg/dL (Less than 10); Salicylate Less than 8.0 mg/dL (15.0-30.0)
[2021-03-27 21:11] LABS: ALT (SGPT) 23 U/L (8-55); AST (SGOT) 18 U/L (5-34); Alkaline Phosphatase 158 U/L (40-110); Anion Gap 14 mmol/L (10-20); BUN (Urea Nitrogen) 10 mg/dL (8.9-20.6); Bilirubin, Total 0.7 mg/dL (0.2-1.2); Calc. Creatinine Clearance 0 mL/min (70-130); Calcium 8.9 mg/dL (7.8-10.44); Carbon Dioxide 23 mmol/L (22-29); Chloride 108 mmol/L (98-107); Globulin 2.5 g/dL (2.4-3.5); Glucose 83 mg/dL (70-105); Potassium 3.6 mmol/L (3.5-5.1); Protein, Total 6.5 g/dL (6.0-8.3); Sodium 141 mmol/L (136-145)
[2021-03-28 02:07] LABS: SARS-CoV-2 NAA Rapid Test Not Detected (NotDetected)
== END 2021-03-28 03:29 ==
LOC: ERS 19:20
DX: R45.851 Suicidal ideations (principal); R44.0 Auditory hallucinations; F19.10 Other psychoactive substance abuse, uncomplicated; Z20.822 Contact with and (suspected) exposure to COVID-19; F17.210 Nicotine dependence, cigarettes, uncomplicated; I10 Essential (primary) hypertension; F31.9 Bipolar disorder, unspecified
CPT/HCPCS: 36415; 80053; 80306; 80307; 81003; 84443; 85025; 96372; J3486; U0002; U0005

== ENCOUNTER 2021-04-22 21:20 | Emergency (ER) | payer SELFPAY ==
[2021-04-22 21:42] LABS: #Basophils 0.1 thou/uL (0.0-0.2); #Eosinphils 0.2 thou/uL (0.0-0.7); #Lymphocytes 2.3 thou/uL (1.20-3.40); #Monocytes 0.5 thou/uL (0.11-0.59); #Neutrophils 5.7 thou/uL (1.40-6.50); %Basophils 0.9 % (0.0-1.0); %Eosinophils 2.7 % (0.0-10.0); %Lymphocytes 26.4 % (21.0-51.0); %Monocytes 5.6 % (0.0-10.0); %Neutrophils 64.4 % (42.0-75.0); Hemoglobin 15.6 g/dL (14.0-18.0); Mean Corpuscular HGB CONC 35.5 g/dL (32.0-36.0); Mean Corpuscular Hemoglobin 32.3 pg (27.0-31.0); Mean Corpuscular Volume 90.9 fL (78.0-98.0); Mean Platelet Volume 7.3 fL (7.4-10.4); Platelet Count 311 thou/uL (130-400); RBC Distribution Width 11.6 % (11.5-14.5); Red Blood Cell (RBC) Count 4.83 mill/uL (4.70-6.10); White Blood Cell (WBC) Count 8.8 thou/uL (4.8-10.8)
[2021-04-22 21:59] LABS: Acetaminophen Less than 6.0 mcg/mL (10.0-30.0); Alcohol Less than 10 mg/dL (Less than 10); Salicylate Less than 8.0 mg/dL (15.0-30.0)
[2021-04-22 22:01] LABS: ALT (SGPT) 16 U/L (8-55); AST (SGOT) 18 U/L (5-34); Alkaline Phosphatase 146 U/L (40-110); Anion Gap 12 mmol/L (10-20); BUN (Urea Nitrogen) 14 mg/dL (8.9-20.6); Bilirubin, Total 0.6 mg/dL (0.2-1.2); Calc. Creatinine Clearance 0 mL/min (70-130); Calcium 9.2 mg/dL (7.8-10.44); Carbon Dioxide 25 mmol/L (22-29); Chloride 105 mmol/L (98-107); Globulin 2.8 g/dL (2.4-3.5); Glucose 115 mg/dL (70-105); Potassium 3.6 mmol/L (3.5-5.1); Protein, Total 6.8 g/dL (6.0-8.3); Sodium 138 mmol/L (136-145)
[2021-04-22 22:14] LABS: Bilirubin Negative (Negative); Blood, Urine Negative (Negative); Glucose, Urine (Dipstick) Negative (Negative); Ketone, Urine Negative (Negative); Leukocyte Negative (Negative); Nitrite Negative (Negative); Protein, Urine (Dipstick) Negative (Neg-Trace); Urobilinogen 0.2 mg/dL (Less than 2)
[2021-04-22 22:15] LABS: Clarity Clear (Clear)
[2021-04-22 22:16] LABS: Specific Gravity, Urine 1.024 (1.002-1.036)
[2021-04-22 22:23] LABS: Medtox Reader # READER 1
[2021-04-22 22:25] LABS: Amphetamine Detected (NotDetected); Barbiturates Screen Not Detected (NotDetected); Benzodiazepine Screen Not Detected (NotDetected); Cocaine Metabolite Screen Not Detected (NotDetected); Medtox Control Line Valid? VALID (VALID); Methadone Not Detected (NotDetected); Methamphetamine Detected (NotDetected); Opiate Screen Not Detected (NotDetected); Oxycodone Screen Not Detected (NotDetected); Phencyclidine (PCP) Not Detected (NotDetected); THC/Cannabinoid Screen Not Detected (NotDetected); Tricyclic Screen Not Detected (NotDetected)
[2021-04-24] MEDS ORDERED: Nicotine 14 MG PATCH TD SCH (09:00)
[2021-04-24] MEDS ORDERED: Acetaminophen 325 MG TAB ONE (10:23)
[2021-04-24] MEDS ORDERED: Nicotine 14 MG PATCH ONE (10:23)
== END 2021-04-24 18:05 | disposition home or self-care (01) ==
LOC: ERS 21:20
DX: F41.9 Anxiety disorder, unspecified (principal); F19.10 Other psychoactive substance abuse, uncomplicated; I10 Essential (primary) hypertension; F17.210 Nicotine dependence, cigarettes, uncomplicated
CPT/HCPCS: 36415; 80053; 80306; 80307; 81003; 84443; 85025; 99285

== ENCOUNTER 2021-04-27 22:11 | Emergency (ER) | payer SELFPAY ==
[2021-04-27 22:44] LABS: #Eosinphils 0.3 thou/uL (0.0-0.7); #Lymphocytes 2.9 thou/uL (1.20-3.40); #Monocytes 0.6 thou/uL (0.11-0.59); %Basophils 0.4 % (0.0-1.0); %Eosinophils 3.2 % (0.0-10.0); %Lymphocytes 29.3 % (21.0-51.0); %Monocytes 6.4 % (0.0-10.0); %Neutrophils 60.7 % (42.0-75.0); Hemoglobin 14.5 g/dL (14.0-18.0); Mean Corpuscular HGB CONC 35.4 g/dL (32.0-36.0); Mean Corpuscular Hemoglobin 32.4 pg (27.0-31.0); Mean Corpuscular Volume 91.6 fL (78.0-98.0); Mean Platelet Volume 7.2 fL (7.4-10.4); Platelet Count 293 thou/uL (130-400); RBC Distribution Width 11.4 % (11.5-14.5); Red Blood Cell (RBC) Count 4.48 mill/uL (4.70-6.10); White Blood Cell (WBC) Count 9.8 thou/uL (4.8-10.8)
[2021-04-27 23:01] LABS: Acetaminophen Less than 6.0 mcg/mL (10.0-30.0); Alcohol Less than 10 mg/dL (Less than 10); CK (CPK) 221 U/L (30-200); Salicylate Less than 8.0 mg/dL (15.0-30.0)
[2021-04-27 23:21] LABS: ALT (SGPT) 22 U/L (8-55); AST (SGOT) 21 U/L (5-34); Albumin 4.1 g/dL (3.5-5.0); Alkaline Phosphatase 160 U/L (40-110); Anion Gap 17 mmol/L (10-20); BUN (Urea Nitrogen) 19 mg/dL (8.9-20.6); Bilirubin, Total 0.4 mg/dL (0.2-1.2); Calc. Creatinine Clearance 0 mL/min (70-130); Calcium 8.8 mg/dL (7.8-10.44); Carbon Dioxide 21 mmol/L (22-29); Chloride 105 mmol/L (98-107); Globulin 2.5 g/dL (2.4-3.5); Glucose 70 mg/dL (70-105); Potassium 4.1 mmol/L (3.5-5.1); Protein, Total 6.6 g/dL (6.0-8.3); Sodium 139 mmol/L (136-145)
[2021-04-27 23:27] LABS: Amphetamine Detected (NotDetected); Barbiturates Screen Not Detected (NotDetected); Benzodiazepine Screen Not Detected (NotDetected); Cocaine Metabolite Screen Not Detected (NotDetected); Medtox Control Line Valid? VALID (VALID); Medtox Reader # READER 4; Methadone Not Detected (NotDetected); Methamphetamine Detected (NotDetected); Opiate Screen Not Detected (NotDetected); Oxycodone Screen Not Detected (NotDetected); Phencyclidine (PCP) Not Detected (NotDetected); THC/Cannabinoid Screen Not Detected (NotDetected); Tricyclic Screen Not Detected (NotDetected)
[2021-04-28 18:20] LABS: SARS-CoV-2 NAA Rapid Test Not Detected (NotDetected)
[2021-04-28] MEDS ORDERED: Ibuprofen 200 MG TAB ONE (19:02)
[2021-04-28] MEDS ORDERED: hydrOXYzine Pamoate 25 mg Capsule ONE (19:36)
== END 2021-04-29 15:54 ==
LOC: ERS 22:11
DX: R45.851 Suicidal ideations (principal); F15.10 Other stimulant abuse, uncomplicated; I10 Essential (primary) hypertension; Z20.822 Contact with and (suspected) exposure to COVID-19; G47.00 Insomnia, unspecified; F17.210 Nicotine dependence, cigarettes, uncomplicated
CPT/HCPCS: 36415; 80053; 80306; 80307; 82550; 84443; 85025; 93005; Q0177; U0002; U0005

== ENCOUNTER 2021-07-09 10:03 | Emergency (ER) | payer SELFPAY ==
[2021-07-09 12:46] LABS: #Basophils 0.1 thou/uL (0.0-0.2); #Eosinphils 0.2 thou/uL (0.0-0.7); #Lymphocytes 1.9 thou/uL (1.20-3.40); #Monocytes 0.6 thou/uL (0.11-0.59); #Neutrophils 4.8 thou/uL (1.40-6.50); %Basophils 0.7 % (0.0-1.0); %Eosinophils 2.5 % (0.0-10.0); %Monocytes 8.2 % (0.0-10.0); %Neutrophils 63.7 % (42.0-75.0); Hemoglobin 14.9 g/dL (14.0-18.0); Mean Corpuscular HGB CONC 33.5 g/dL (32.0-36.0); Mean Corpuscular Hemoglobin 29.9 pg (27.0-31.0); Mean Corpuscular Volume 89.2 fL (78.0-98.0); Mean Platelet Volume 7.4 fL (7.4-10.4); Platelet Count 258 thou/uL (130-400); RBC Distribution Width 11.7 % (11.5-14.5); Red Blood Cell (RBC) Count 4.97 mill/uL (4.70-6.10); White Blood Cell (WBC) Count 7.6 thou/uL (4.8-10.8)
[2021-07-09 13:07] LABS: Acetaminophen Less than 6.0 mcg/mL (10.0-30.0); Alcohol Less than 10 mg/dL (Less than 10); Salicylate Less than 8.0 mg/dL (15.0-30.0)
[2021-07-09 13:08] LABS: ALT (SGPT) 28 U/L (8-55); AST (SGOT) 29 U/L (5-34); Albumin 4.2 g/dL (3.5-5.0); Alkaline Phosphatase 142 U/L (40-110); Anion Gap 12 mmol/L (10-20); BUN (Urea Nitrogen) 18 mg/dL (8.9-20.6); Bilirubin, Total 0.6 mg/dL (0.2-1.2); Calc. Creatinine Clearance 0 mL/min (70-130); Calcium 9.4 mg/dL (7.8-10.44); Carbon Dioxide 26 mmol/L (22-29); Chloride 102 mmol/L (98-107); Globulin 2.6 g/dL (2.4-3.5); Glucose 83 mg/dL (70-105); Protein, Total 6.8 g/dL (6.0-8.3); Sodium 136 mmol/L (136-145)
[2021-07-09] MEDS ORDERED: Acetaminophen 325 MG TAB ONE (13:41)
[2021-07-09] MEDS ORDERED: Ziprasidone 20 MG CAP ONE (13:41)
[2021-07-09 15:51] LABS: Bilirubin Negative (Negative); Blood, Urine Negative (Negative); Clarity Clear (Clear); Glucose, Urine (Dipstick) Normal (Negative); Ketone, Urine Negative (Negative); Leukocyte Negative Leu/uL (Negative); Nitrite Negative (Negative); Protein, Urine (Dipstick) 10 mg/dL (Neg-Trace); Specific Gravity, Urine 1.031 (1.002-1.036)
[2021-07-09 16:00] LABS: Amphetamine Detected (NotDetected); Barbiturates Screen Not Detected (NotDetected); Benzodiazepine Screen Not Detected (NotDetected); Cocaine Metabolite Screen Not Detected (NotDetected); Methadone Not Detected (NotDetected); Methamphetamine Detected (NotDetected); Opiate Screen Not Detected (NotDetected); Oxycodone Screen Not Detected (NotDetected); Phencyclidine (PCP) Not Detected (NotDetected); THC/Cannabinoid Screen Not Detected (NotDetected); Tricyclic Screen Not Detected (NotDetected)
[2021-07-09 17:08] LABS: SARS-CoV-2 NAA Rapid Test Not Detected (NotDetected)
== END 2021-07-09 21:01 | disposition home or self-care (01) ==
LOC: ERS 10:03
DX: F29 Unspecified psychosis not due to a substance or known physiological condition (principal); Z91.19 Patient's noncompliance with other medical treatment and regimen; F15.10 Other stimulant abuse, uncomplicated; Z20.822 Contact with and (suspected) exposure to COVID-19; I10 Essential (primary) hypertension; F17.210 Nicotine dependence, cigarettes, uncomplicated
CPT/HCPCS: 36415; 80053; 80306; 80307; 81003; 85025; 99284; U0002

== ENCOUNTER 2021-07-10 02:56 | Emergency (ER) | payer SELFPAY ==
[2021-07-10 03:52] LABS: #Eosinphils 0.2 thou/uL (0.0-0.7); #Lymphocytes 1.9 thou/uL (1.20-3.40); #Monocytes 0.7 thou/uL (0.11-0.59); #Neutrophils 5.7 thou/uL (1.40-6.50); %Basophils 0.4 % (0.0-1.0); %Eosinophils 1.9 % (0.0-10.0); %Lymphocytes 22.2 % (21.0-51.0); %Monocytes 7.7 % (0.0-10.0); %Neutrophils 67.8 % (42.0-75.0); Hemoglobin 14.6 g/dL (14.0-18.0); Mean Corpuscular HGB CONC 34.4 g/dL (32.0-36.0); Mean Corpuscular Hemoglobin 30.8 pg (27.0-31.0); Mean Corpuscular Volume 89.6 fL (78.0-98.0); Mean Platelet Volume 7.3 fL (7.4-10.4); Platelet Count 245 thou/uL (130-400); RBC Distribution Width 11.6 % (11.5-14.5); Red Blood Cell (RBC) Count 4.73 mill/uL (4.70-6.10); White Blood Cell (WBC) Count 8.4 thou/uL (4.8-10.8)
[2021-07-10 04:10] LABS: Acetaminophen Less than 6.0 mcg/mL (10.0-30.0); Alcohol Less than 10 mg/dL (Less than 10); Salicylate Less than 8.0 mg/dL (15.0-30.0)
[2021-07-10 04:13] LABS: ALT (SGPT) 27 U/L (8-55); AST (SGOT) 24 U/L (5-34); Albumin 4.1 g/dL (3.5-5.0); Alkaline Phosphatase 145 U/L (40-110); Anion Gap 12 mmol/L (10-20); BUN (Urea Nitrogen) 17 mg/dL (8.9-20.6); Bilirubin, Total 0.6 mg/dL (0.2-1.2); CK (CPK) 343 U/L (30-200); Calc. Creatinine Clearance 0 mL/min (70-130); Calcium 9.4 mg/dL (7.8-10.44); Carbon Dioxide 26 mmol/L (22-29); Chloride 104 mmol/L (98-107); Globulin 2.7 g/dL (2.4-3.5); Glucose 83 mg/dL (70-105); Potassium 3.8 mmol/L (3.5-5.1); Protein, Total 6.8 g/dL (6.0-8.3); Sodium 138 mmol/L (136-145)
[2021-07-10 04:27] LABS: Amphetamine Not Detected (NotDetected); Barbiturates Screen Not Detected (NotDetected); Benzodiazepine Screen Not Detected (NotDetected); Cocaine Metabolite Screen Not Detected (NotDetected); Methadone Not Detected (NotDetected); Methamphetamine Detected (NotDetected); Opiate Screen Not Detected (NotDetected); Oxycodone Screen Not Detected (NotDetected); Phencyclidine (PCP) Not Detected (NotDetected); THC/Cannabinoid Screen Not Detected (NotDetected); Tricyclic Screen Not Detected (NotDetected)
[2021-07-10 04:43] LABS: Clarity Clear (Clear)
[2021-07-10 04:44] LABS: Bilirubin Negative (Negative); Blood, Urine Negative (Negative); Glucose, Urine (Dipstick) Normal (Negative); Ketone, Urine Negative (Negative); Leukocyte Negative Leu/uL (Negative); Nitrite Negative (Negative); Protein, Urine (Dipstick) Negative (Neg-Trace); Urobilinogen Normal mg/dL (Less than 2)
== END 2021-07-10 07:10 | disposition home or self-care (01) ==
LOC: ERS 02:56
DX: R44.0 Auditory hallucinations (principal); F15.20 Other stimulant dependence, uncomplicated; I10 Essential (primary) hypertension; F17.210 Nicotine dependence, cigarettes, uncomplicated
CPT/HCPCS: 36415; 80053; 80306; 80307; 81003; 82550; 85025; 99285

== ENCOUNTER 2021-07-10 15:30 | Emergency (ER) | payer SELFPAY ==
[2021-07-10 16:46] LABS: #Basophils 0.1 thou/uL (0.0-0.2); #Eosinphils 0.1 thou/uL (0.0-0.7); #Lymphocytes 2.1 thou/uL (1.20-3.40); #Monocytes 0.7 thou/uL (0.11-0.59); #Neutrophils 6.9 thou/uL (1.40-6.50); %Basophils 0.7 % (0.0-1.0); %Eosinophils 1.3 % (0.0-10.0); %Lymphocytes 21.7 % (21.0-51.0); %Monocytes 6.9 % (0.0-10.0); %Neutrophils 69.5 % (42.0-75.0); Hemoglobin 14.8 g/dL (14.0-18.0); Mean Corpuscular HGB CONC 33.7 g/dL (32.0-36.0); Mean Corpuscular Hemoglobin 30.1 pg (27.0-31.0); Mean Corpuscular Volume 89.2 fL (78.0-98.0); Mean Platelet Volume 7.3 fL (7.4-10.4); Platelet Count 282 thou/uL (130-400); RBC Distribution Width 11.7 % (11.5-14.5); Red Blood Cell (RBC) Count 4.93 mill/uL (4.70-6.10); White Blood Cell (WBC) Count 9.9 thou/uL (4.8-10.8)
[2021-07-10 17:00] LABS: Bilirubin Negative (Negative); Blood, Urine Negative (Negative); Clarity Clear (Clear); Glucose, Urine (Dipstick) Normal (Negative); Ketone, Urine Negative (Negative); Leukocyte Negative Leu/uL (Negative); Nitrite Negative (Negative); Protein, Urine (Dipstick) 20 mg/dL (Neg-Trace); Specific Gravity, Urine 1.011 (1.002-1.036); Urobilinogen Normal mg/dL (Less than 2); pH, Urine 7.5 (5.0-9.0)
[2021-07-10 17:04] LABS: ALT (SGPT) 29 U/L (8-55); AST (SGOT) 24 U/L (5-34); Albumin 4.3 g/dL (3.5-5.0); Alkaline Phosphatase 139 U/L (40-110); Anion Gap 11 mmol/L (10-20); BUN (Urea Nitrogen) 11 mg/dL (8.9-20.6); Bilirubin, Total 0.8 mg/dL (0.2-1.2); CK (CPK) 282 U/L (30-200); Calc. Creatinine Clearance 0 mL/min (70-130); Calcium 9.4 mg/dL (7.8-10.44); Carbon Dioxide 26 mmol/L (22-29); Chloride 104 mmol/L (98-107); Glucose 65 mg/dL (70-105); Potassium 3.4 mmol/L (3.5-5.1); Protein, Total 7.3 g/dL (6.0-8.3); Sodium 138 mmol/L (136-145)
[2021-07-10 17:05] LABS: Acetaminophen Less than 6.0 mcg/mL (10.0-30.0); Alcohol Less than 10 mg/dL (Less than 10); Salicylate Less than 8.0 mg/dL (15.0-30.0)
[2021-07-10 17:08] LABS: Amphetamine Not Detected (NotDetected); Barbiturates Screen Not Detected (NotDetected); Benzodiazepine Screen Not Detected (NotDetected); Cocaine Metabolite Screen Not Detected (NotDetected); Methadone Not Detected (NotDetected); Methamphetamine Not Detected (NotDetected); Opiate Screen Not Detected (NotDetected); Oxycodone Screen Not Detected (NotDetected); Phencyclidine (PCP) Not Detected (NotDetected); THC/Cannabinoid Screen Not Detected (NotDetected); Tricyclic Screen Not Detected (NotDetected)
[2021-07-10] MEDS ORDERED: Acetaminophen 500 MG TAB ONE (18:43)
[2021-07-10] MEDS ORDERED: Ziprasidone 20 MG VIAL ONE (20:58)
[2021-07-10] MEDS ORDERED: Water For Inject, Bacteriostat 30 ML ONE (20:59)
[2021-07-11] MEDS ORDERED: Nicotine 14 MG PATCH ONE (11:01)
[2021-07-11] MEDS ORDERED: Acetaminophen 500 MG TAB ONE (16:37)
== END 2021-07-11 18:30 | disposition home or self-care (01) ==
LOC: ERS 15:30
DX: F32.9 Major depressive disorder, single episode, unspecified (principal); I10 Essential (primary) hypertension; F17.210 Nicotine dependence, cigarettes, uncomplicated
CPT/HCPCS: 36415; 80306; 80307; 84443; 93005; 96372; J3486

== ENCOUNTER 2021-07-12 12:10 | Emergency (ER) | payer SELFPAY ==
[2021-07-12] MEDS ORDERED: Ziprasidone 20 MG VIAL ONE (13:15)
[2021-07-12] MEDS ORDERED: Sterile Water 10 ML ONE (13:15)
[2021-07-12 19:54] LABS: %Monocytes 5.4 % (0.0-10.0); %Neutrophils 77.4 % (42.0-75.0); Hemoglobin 14.3 g/dL (14.0-18.0); Mean Corpuscular Hemoglobin 29.7 pg (27.0-31.0); Mean Platelet Volume 7.5 fL (7.4-10.4); Platelet Count 261 thou/uL (130-400); RBC Distribution Width 11.7 % (11.5-14.5); Red Blood Cell (RBC) Count 4.81 mill/uL (4.70-6.10); White Blood Cell (WBC) Count 9.5 thou/uL (4.8-10.8)
[2021-07-12 19:55] LABS: %Basophils 0.2 % (0.0-1.0)
[2021-07-12 19:56] LABS: #Eosinphils 0.2 thou/uL (0.0-0.7); #Lymphocytes 1.4 thou/uL (1.20-3.40); #Monocytes 0.5 thou/uL (0.11-0.59); #Neutrophils 7.4 thou/uL (1.40-6.50)
[2021-07-12 20:08] LABS: Sodium 143 mmol/L (136-145)
[2021-07-12 20:09] LABS: Anion Gap 13 mmol/L (10-20); BUN (Urea Nitrogen) 11 mg/dL (8.9-20.6); Bilirubin, Total 0.6 mg/dL (0.2-1.2); Calc. Creatinine Clearance 0 mL/min (70-130); Calcium 9.6 mg/dL (7.8-10.44); Carbon Dioxide 28 mmol/L (22-29); Chloride 106 mmol/L (98-107); Glucose 64 mg/dL (70-105); Potassium 3.7 mmol/L (3.5-5.1)
[2021-07-12 20:10] LABS: ALT (SGPT) 22 U/L (8-55); AST (SGOT) 19 U/L (5-34); Acetaminophen Less than 6.0 mcg/mL (10.0-30.0); Albumin 4.2 g/dL (3.5-5.0); Alkaline Phosphatase 139 U/L (40-110); Globulin 2.6 g/dL (2.4-3.5); Protein, Total 6.8 g/dL (6.0-8.3)
[2021-07-12 20:11] LABS: Alcohol Less than 10 mg/dL (Less than 10); Salicylate Less than 8.0 mg/dL (15.0-30.0)
[2021-07-12] MEDS ORDERED: OLANZapine 5 MG TAB PO SCH (23:15)
[2021-07-12] MEDS ORDERED: traZODone HCl 50 MG TAB PO SCH (23:15)
[2021-07-13] MEDS ORDERED: FLUoxetine HCl 20 MG CAP PO SCH (09:00)
[2021-07-13] MEDS ORDERED: OLANZapine 5 MG TAB PO SCH (21:00)
[2021-07-13] MEDS ORDERED: traZODone HCl 50 MG TAB PO SCH (21:00)
== END 2021-07-12 21:38 | disposition home or self-care (01) ==
LOC: ERS 12:10
DX: F19.10 Other psychoactive substance abuse, uncomplicated (principal); I10 Essential (primary) hypertension; Z87.891 Personal history of nicotine dependence
CPT/HCPCS: 80053; 80307; 85025; 93005; 99285; J3486

== ENCOUNTER 2021-09-06 12:30 | Emergency (ER) | payer SELFPAY ==
[2021-09-06] MEDS ORDERED: Acetaminophen 500 MG TAB ONE (13:33)
[2021-09-06] MEDS ORDERED: Ibuprofen 800 MG TAB ONE (13:33)
[2021-09-06 14:18] LABS: #Eosinphils 0.1 thou/uL (0.0-0.7); #Lymphocytes 1.6 thou/uL (1.20-3.40); #Monocytes 0.6 thou/uL (0.11-0.59); #Neutrophils 8.7 thou/uL (1.40-6.50); %Basophils 0.3 % (0.0-1.0); %Eosinophils 0.6 % (0.0-10.0); %Lymphocytes 14.6 % (21.0-51.0); %Neutrophils 79.5 % (42.0-75.0); Hemoglobin 15.7 g/dL (14.0-18.0); Mean Corpuscular HGB CONC 34.4 g/dL (32.0-36.0); Mean Corpuscular Hemoglobin 31.3 pg (27.0-31.0); Mean Platelet Volume 7.2 fL (7.4-10.4); Platelet Count 266 thou/uL (130-400); RBC Distribution Width 11.9 % (11.5-14.5); Red Blood Cell (RBC) Count 5.01 mill/uL (4.70-6.10)
[2021-09-06 14:41] LABS: Alcohol Less than 10 mg/dL (Less than 10); Salicylate Less than 8.0 mg/dL (15.0-30.0)
[2021-09-06 14:44] LABS: ALT (SGPT) 16 U/L (8-55); AST (SGOT) 14 U/L (5-34); Albumin 3.6 g/dL (3.5-5.0); Alcohol Less than 10 mg/dL (Less than 10); Alkaline Phosphatase 105 U/L (40-110); Anion Gap 9 mmol/L (10-20); BUN (Urea Nitrogen) 13 mg/dL (8.9-20.6); Bilirubin, Total 0.9 mg/dL (0.2-1.2); Calc. Creatinine Clearance 0 mL/min (70-130); Calcium 8.9 mg/dL (7.8-10.44); Carbon Dioxide 29 mmol/L (22-29); Chloride 104 mmol/L (98-107); Globulin 2.2 g/dL (2.4-3.5); Glucose 87 mg/dL (70-105); Potassium 3.7 mmol/L (3.5-5.1); Protein, Total 5.8 g/dL (6.0-8.3); Sodium 138 mmol/L (136-145)
[2021-09-06 14:49] LABS: Amphetamine Not Detected (NotDetected); Barbiturates Screen Not Detected (NotDetected); Benzodiazepine Screen Not Detected (NotDetected); Cocaine Metabolite Screen Not Detected (NotDetected); Methadone Not Detected (NotDetected); Methamphetamine Not Detected (NotDetected); Opiate Screen Not Detected (NotDetected); Oxycodone Screen Not Detected (NotDetected); Phencyclidine (PCP) Not Detected (NotDetected); THC/Cannabinoid Screen Detected (NotDetected); Tricyclic Screen Not Detected (NotDetected)
== END 2021-09-06 16:17 | disposition home or self-care (01) ==
LOC: ERS 12:30
DX: R51.9 Headache, unspecified (principal); I10 Essential (primary) hypertension; Z87.891 Personal history of nicotine dependence; Z79.899 Other long term (current) drug therapy
CPT/HCPCS: 36415; 80053; 80306; 80307; 84443; 85025; 99284

== ENCOUNTER 2021-09-09 17:35 | Emergency (ER) | payer SELFPAY ==
[2021-09-09 18:31] LABS: #Eosinphils 0.1 thou/uL (0.0-0.7); #Lymphocytes 1.7 thou/uL (1.20-3.40); #Monocytes 0.8 thou/uL (0.11-0.59); %Basophils 0.2 % (0.0-1.0); %Lymphocytes 15.7 % (21.0-51.0); %Monocytes 7.2 % (0.0-10.0); %Neutrophils 75.9 % (42.0-75.0); Hemoglobin 15.6 g/dL (14.0-18.0); Mean Corpuscular HGB CONC 34.3 g/dL (32.0-36.0); Mean Corpuscular Volume 90.5 fL (78.0-98.0); Mean Platelet Volume 7.1 fL (7.4-10.4); Platelet Count 315 thou/uL (130-400); RBC Distribution Width 12.2 % (11.5-14.5); Red Blood Cell (RBC) Count 5.03 mill/uL (4.70-6.10); White Blood Cell (WBC) Count 10.6 thou/uL (4.8-10.8)
[2021-09-09 18:59] LABS: Acetaminophen Less than 6.0 mcg/mL (10.0-30.0); Alcohol Less than 10 mg/dL (Less than 10); Salicylate Less than 8.0 mg/dL (15.0-30.0)
[2021-09-09 21:17] LABS: Amphetamine Not Detected (NotDetected); Barbiturates Screen Not Detected (NotDetected); Benzodiazepine Screen Not Detected (NotDetected); Cocaine Metabolite Screen Not Detected (NotDetected); Methadone Not Detected (NotDetected); Methamphetamine Not Detected (NotDetected); Opiate Screen Not Detected (NotDetected); Oxycodone Screen Not Detected (NotDetected); Phencyclidine (PCP) Not Detected (NotDetected); THC/Cannabinoid Screen Detected (NotDetected); Tricyclic Screen Not Detected (NotDetected)
[2021-09-09 21:25] LABS: ALT (SGPT) 22 U/L (8-55); AST (SGOT) 22 U/L (5-34); Albumin 4.2 g/dL (3.5-5.0); Alkaline Phosphatase 122 U/L (40-110); Anion Gap 12 mmol/L (10-20); BUN (Urea Nitrogen) 11 mg/dL (8.9-20.6); Bilirubin, Total 0.6 mg/dL (0.2-1.2); Calc. Creatinine Clearance 0 mL/min (70-130); Calcium 9.4 mg/dL (7.8-10.44); Carbon Dioxide 27 mmol/L (22-29); Chloride 105 mmol/L (98-107); Globulin 2.6 g/dL (2.4-3.5); Glucose 89 mg/dL (70-105); Potassium 3.6 mmol/L (3.5-5.1); Protein, Total 6.8 g/dL (6.0-8.3); Sodium 140 mmol/L (136-145)
== END 2021-09-10 08:35 | disposition home or self-care (01) ==
LOC: ERS 17:35
DX: F12.10 Cannabis abuse, uncomplicated (principal); R45.851 Suicidal ideations; I10 Essential (primary) hypertension; Z87.891 Personal history of nicotine dependence
CPT/HCPCS: 36415; 80053; 80306; 80307; 85025; 93005

== ENCOUNTER 2022-02-17 05:44 | Emergency (ER) | payer SELFPAY | END 2022-02-17 06:38 | disposition home or self-care (01) | LOC: ERS 05:44 | DX: G47.00 Insomnia, unspecified (principal); I10 Essential (primary) hypertension; Z87.891 Personal history of nicotine dependence | CPT/HCPCS: 99283 ==

== ENCOUNTER 2022-03-02 14:53 | Emergency (ER) | payer SELFPAY ==
[2022-03-02 17:09] LABS: #Basophils 0.1 thou/uL (0.0-0.2); #Eosinphils 0.1 thou/uL (0.0-0.7); #Lymphocytes 1.8 thou/uL (1.20-3.40); #Monocytes 1.3 thou/uL (0.11-0.59); #Neutrophils 14.7 thou/uL (1.40-6.50); %Basophils 0.3 % (0.0-1.0); %Eosinophils 0.5 % (0.0-10.0); %Lymphocytes 10.3 % (21.0-51.0); %Monocytes 7.2 % (0.0-10.0); %Neutrophils 81.8 % (42.0-75.0); Hemoglobin 15.9 g/dL (14.0-18.0); Mean Corpuscular HGB CONC 33.7 g/dL (32.0-36.0); Mean Corpuscular Hemoglobin 30.7 pg (27.0-31.0); Mean Corpuscular Volume 91.1 fL (78.0-98.0); Mean Platelet Volume 7.1 fL (7.4-10.4); Platelet Count 293 thou/uL (130-400); RBC Distribution Width 11.6 % (11.5-14.5); Red Blood Cell (RBC) Count 5.17 mill/uL (4.70-6.10); White Blood Cell (WBC) Count 17.9 thou/uL (4.8-10.8)
[2022-03-02 17:29] LABS: Acetaminophen Less than 10.0 mcg/mL (10.0-30.0); Alcohol Less than 10 mg/dL (Less than 10); Salicylate Less than 8.0 mg/dL (15.0-30.0)
[2022-03-02 17:30] LABS: ALT (SGPT) 19 U/L (8-55); AST (SGOT) 30 U/L (5-34); Albumin 4.1 g/dL (3.5-5.0); Alkaline Phosphatase 109 U/L (40-110); Anion Gap 15 mmol/L (10-20); BUN (Urea Nitrogen) 15 mg/dL (8.9-20.6); Bilirubin, Total 2.1 mg/dL (0.2-1.2); Calc. Creatinine Clearance 0 mL/min (70-130); Carbon Dioxide 22 mmol/L (22-29); Chloride 101 mmol/L (98-107); Globulin 2.6 g/dL (2.4-3.5); Glucose 102 mg/dL (70-105); Potassium 3.4 mmol/L (3.5-5.1); Protein, Total 6.7 g/dL (6.0-8.3); Sodium 135 mmol/L (136-145)
[2022-03-02 17:53] LABS: Bilirubin Negative (Negative); Blood, Urine Negative (Negative); Clarity Clear (Clear); Glucose, Urine (Dipstick) Normal (Negative); Ketone, Urine 80 mg/dL (Negative); Leukocyte Negative Leu/uL (Negative); Nitrite Negative (Negative); Protein, Urine (Dipstick) 20 mg/dL (Neg-Trace); Specific Gravity, Urine 1.028 (1.002-1.036)
[2022-03-02 18:02] LABS: Amphetamine Detected (NotDetected); Barbiturates Screen Not Detected (NotDetected); Benzodiazepine Screen Not Detected (NotDetected); Cocaine Metabolite Screen Not Detected (NotDetected); Methadone Not Detected (NotDetected); Methamphetamine Detected (NotDetected); Opiate Screen Not Detected (NotDetected); Oxycodone Screen Not Detected (NotDetected); Phencyclidine (PCP) Not Detected (NotDetected); THC/Cannabinoid Screen Detected (NotDetected); Tricyclic Screen Not Detected (NotDetected)
[2022-03-02 23:18] LABS: SARS-CoV-2 NAA Rapid Test DETECTED (NotDetected)
[2022-03-03] MEDS ORDERED: Acetaminophen 500 MG TAB ONE (01:30)
== END 2022-03-04 15:30 ==
LOC: ERS 14:53
DX: J02.9 Acute pharyngitis, unspecified (principal); F29 Unspecified psychosis not due to a substance or known physiological condition; R11.2 Nausea with vomiting, unspecified; I10 Essential (primary) hypertension; Z20.822 Contact with and (suspected) exposure to COVID-19; Z87.891 Personal history of nicotine dependence
CPT/HCPCS: 36415; 80053; 80306; 80307; 81003; 84443; 85025; 93005; 99285; U0002

== ENCOUNTER 2022-09-17 17:51 | Emergency (ER) | payer SELFPAY ==
[2022-09-17] MEDS ORDERED: Ibuprofen 200 MG TAB ONE (18:20)
== END 2022-09-17 18:28 | disposition home or self-care (01) ==
LOC: ERS 17:51
DX: R51.9 Headache, unspecified (principal); I10 Essential (primary) hypertension; Z87.891 Personal history of nicotine dependence
CPT/HCPCS: 99283

== ENCOUNTER 2022-10-15 14:53 | Emergency (ER) | payer SELFPAY ==
[2022-10-15] MEDS ORDERED: Acetaminophen 500 MG TAB ONE (16:03)
[2022-10-15 16:08] LABS: #Eosinphils 0.1 thou/uL (0.0-0.7); #Lymphocytes 1.8 thou/uL (1.20-3.40); #Monocytes 0.8 thou/uL (0.11-0.59); #Neutrophils 7.5 thou/uL (1.40-6.50); %Basophils 0.3 % (0.0-1.0); %Eosinophils 0.6 % (0.0-10.0); %Lymphocytes 17.7 % (21.0-51.0); %Monocytes 7.6 % (0.0-10.0); %Neutrophils 73.8 % (42.0-75.0); Hemoglobin 15.4 g/dL (14.0-18.0); Mean Corpuscular HGB CONC 33.9 g/dL (32.0-36.0); Mean Corpuscular Hemoglobin 31.1 pg (27.0-31.0); Mean Corpuscular Volume 91.8 fl (78.0-98.0); Mean Platelet Volume 7.5 fL (7.4-10.4); Platelet Count 252 10x3/uL (130-400); RBC Distribution Width 11.8 % (11.5-14.5); Red Blood Cell (RBC) Count 4.95 mill/uL (4.70-6.10); White Blood Cell (WBC) Count 10.2 10x3/uL (4.8-10.8)
[2022-10-15 16:22] LABS: ALT (SGPT) 17 U/L (8-55); AST (SGOT) 15 U/L (5-34); Acetaminophen Less than 10.0 mcg/mL (10.0-30.0); Albumin 3.7 g/dL (3.5-5.0); Alcohol Less than 10 mg/dL (Less than 10); Alkaline Phosphatase 102 U/L (40-110); Anion Gap 10 mmol/L (10-20); BUN (Urea Nitrogen) 12 mg/dL (8.9-20.6); Bilirubin, Total 0.6 mg/dL (0.2-1.2); Calc. Creatinine Clearance 0 mL/min (70-130); Calcium 8.6 mg/dL (7.8-10.44); Carbon Dioxide 30 mmol/L (22-29); Chloride 105 mmol/L (98-107); Estimated GFR 81; Globulin 2.1 g/dL (2.4-3.5); Glucose 64 mg/dL (70-105); Potassium 3.8 mmol/L (3.5-5.1); Protein, Total 5.8 g/dL (6.0-8.3); Salicylate Less than 8.0 mg/dL (15.0-30.0); Sodium 141 mmol/L (136-145)
[2022-10-15 16:28] LABS: Bacteria/HPF None Seen HPF (None Seen); Bilirubin Negative (Negative); Blood, Urine Negative (Negative); Clarity Turbid (Clear); Glucose, Urine (Dipstick) Normal (Negative); Ketone, Urine Negative (Negative); Leukocyte 75 Leu/uL (Negative); Nitrite Negative (Negative); Protein, Urine (Dipstick) Negative (Neg-Trace); RBC/HPF 0-3 HPF (0-3); Specific Gravity, Urine 1.019 (1.002-1.036); Squamous Epithelial None Seen HPF (0-3); Urobilinogen Normal mg/dL (Less than 2); WBC/HPF 0-3 HPF (0-3)
[2022-10-15 16:33] LABS: Amphetamine Not Detected (NotDetected); Barbiturates Screen Not Detected (NotDetected); Benzodiazepine Screen Not Detected (NotDetected); Cocaine Metabolite Screen Not Detected (NotDetected); Methadone Not Detected (NotDetected); Methamphetamine Not Detected (NotDetected); Opiate Screen Not Detected (NotDetected); Oxycodone Screen Not Detected (NotDetected); Phencyclidine (PCP) Not Detected (NotDetected); THC/Cannabinoid Screen Detected (NotDetected); Tricyclic Screen Not Detected (NotDetected)
[2022-10-16] MEDS ORDERED: traZODone HCl 50 MG TAB ONE (05:44)
== END 2022-10-16 10:34 | disposition home or self-care (01) ==
LOC: ERS 14:53
DX: R45.851 Suicidal ideations (principal); I10 Essential (primary) hypertension; Z87.891 Personal history of nicotine dependence
CPT/HCPCS: 36415; 80053; 80306; 80307; 81003; 81015; 84443; 85025; 93005

== ENCOUNTER 2022-10-17 10:45 | Emergency (ER) | payer SELFPAY ==
[2022-10-17 12:53] LABS: #Eosinphils 0.1 thou/uL (0.0-0.7); #Lymphocytes 1.7 thou/uL (1.20-3.40); #Monocytes 0.4 thou/uL (0.11-0.59); #Neutrophils 4.4 thou/uL (1.40-6.50); %Basophils 0.5 % (0.0-1.0); %Eosinophils 1.2 % (0.0-10.0); %Lymphocytes 25.4 % (21.0-51.0); %Monocytes 6.4 % (0.0-10.0); %Neutrophils 66.5 % (42.0-75.0); Hemoglobin 14.2 g/dL (14.0-18.0); Mean Corpuscular HGB CONC 34.4 g/dL (32.0-36.0); Mean Corpuscular Hemoglobin 31.7 pg (27.0-31.0); Mean Corpuscular Volume 92.1 fl (78.0-98.0); Mean Platelet Volume 7.6 fL (7.4-10.4); Platelet Count 232 10x3/uL (130-400); RBC Distribution Width 11.8 % (11.5-14.5); Red Blood Cell (RBC) Count 4.49 mill/uL (4.70-6.10); White Blood Cell (WBC) Count 6.6 10x3/uL (4.8-10.8)
[2022-10-17 13:21] LABS: ALT (SGPT) 15 U/L (8-55); AST (SGOT) 13 U/L (5-34); Albumin 3.6 g/dL (3.5-5.0); Alkaline Phosphatase 118 U/L (40-110); Anion Gap 11 mmol/L (10-20); BUN (Urea Nitrogen) 16 mg/dL (8.9-20.6); Bilirubin, Total 0.3 mg/dL (0.2-1.2); Calc. Creatinine Clearance 0 mL/min (70-130); Calcium 8.7 mg/dL (7.8-10.44); Carbon Dioxide 27 mmol/L (22-29); Chloride 104 mmol/L (98-107); Estimated GFR 80; Globulin 2.1 g/dL (2.4-3.5); Glucose 93 mg/dL (70-105); Potassium 4.1 mmol/L (3.5-5.1); Protein, Total 5.7 g/dL (6.0-8.3); Sodium 138 mmol/L (136-145)
[2022-10-17 13:22] LABS: Acetaminophen Less than 10.0 mcg/mL (10.0-30.0); Alcohol Less than 10 mg/dL (Less than 10); Salicylate Less than 8.0 mg/dL (15.0-30.0)
[2022-10-17 13:34] LABS: Amphetamine Not Detected (NotDetected); Barbiturates Screen Not Detected (NotDetected); Benzodiazepine Screen Not Detected (NotDetected); Cocaine Metabolite Screen Not Detected (NotDetected); Methadone Not Detected (NotDetected); Methamphetamine Not Detected (NotDetected); Opiate Screen Not Detected (NotDetected); Oxycodone Screen Not Detected (NotDetected); Phencyclidine (PCP) Not Detected (NotDetected); THC/Cannabinoid Screen Detected (NotDetected); Tricyclic Screen Not Detected (NotDetected)
== END 2022-10-17 14:39 | disposition home or self-care (01) ==
LOC: ERS 10:45
DX: F43.21 Adjustment disorder with depressed mood (principal); I10 Essential (primary) hypertension; F17.290 Nicotine dependence, other tobacco product, uncomplicated
CPT/HCPCS: 36415; 70450; 80053; 80306; 80307; 85025; 93005

== ENCOUNTER 2022-10-28 01:38 | Emergency (ER) | payer SELFPAY ==
[2022-10-28 02:20] LABS: #Eosinphils 0.1 thou/uL (0.0-0.7); #Lymphocytes 1.9 thou/uL (1.20-3.40); #Monocytes 0.7 thou/uL (0.11-0.59); #Neutrophils 8.3 thou/uL (1.40-6.50); %Basophils 0.3 % (0.0-1.0); %Eosinophils 1.3 % (0.0-10.0); %Lymphocytes 17.2 % (21.0-51.0); %Monocytes 6.1 % (0.0-10.0); %Neutrophils 75.2 % (42.0-75.0); Hemoglobin 16.2 g/dL (14.0-18.0); Mean Corpuscular Hemoglobin 31.7 pg (27.0-31.0); Mean Corpuscular Volume 90.6 fl (78.0-98.0); Mean Platelet Volume 7.7 fL (7.4-10.4); Platelet Count 242 10x3/uL (130-400); RBC Distribution Width 11.5 % (11.5-14.5); Red Blood Cell (RBC) Count 5.09 mill/uL (4.70-6.10)
[2022-10-28 02:27] LABS: Acetaminophen Less than 10.0 mcg/mL (10.0-30.0); Alcohol Less than 10 mg/dL (Less than 10); Salicylate Less than 8.0 mg/dL (15.0-30.0)
[2022-10-28 02:28] LABS: ALT (SGPT) 22 U/L (8-55); AST (SGOT) 19 U/L (5-34); Albumin 4.3 g/dL (3.5-5.0); Alkaline Phosphatase 135 U/L (40-110); Anion Gap 12 mmol/L (10-20); BUN (Urea Nitrogen) 16 mg/dL (8.9-20.6); Calc. Creatinine Clearance 0 mL/min (70-130); Calcium 9.1 mg/dL (7.8-10.44); Carbon Dioxide 23 mmol/L (22-29); Chloride 105 mmol/L (98-107); Estimated GFR 87; Globulin 2.6 g/dL (2.4-3.5); Glucose 115 mg/dL (70-105); Protein, Total 6.9 g/dL (6.0-8.3); Sodium 136 mmol/L (136-145)
[2022-10-28 04:05] LABS: Bilirubin, Total 0.5 mg/dL (0.2-1.2)
[2022-10-28 04:06] LABS: Amphetamine Not Detected (NotDetected); Barbiturates Screen Not Detected (NotDetected); Benzodiazepine Screen Not Detected (NotDetected); Cocaine Metabolite Screen Not Detected (NotDetected); Methadone Not Detected (NotDetected); Methamphetamine Not Detected (NotDetected); Opiate Screen Not Detected (NotDetected); Oxycodone Screen Not Detected (NotDetected); Phencyclidine (PCP) Not Detected (NotDetected); THC/Cannabinoid Screen Detected (NotDetected); Tricyclic Screen Not Detected (NotDetected)
== END 2022-10-28 06:00 | disposition home or self-care (01) ==
LOC: ERS 01:38 → EEVIPCON 01:38 → ERS 06:00
DX: F33.9 Major depressive disorder, recurrent, unspecified (principal); I10 Essential (primary) hypertension; F17.290 Nicotine dependence, other tobacco product, uncomplicated
CPT/HCPCS: 36415; 80053; 80306; 80307; 84443; 85025; 93005

== ENCOUNTER 2023-06-10 01:33 | Emergency (ER) | payer SELFPAY ==
[2023-06-10 02:41] LABS: #Eosinphils 0.2 thou/uL (0.0-0.7); #Monocytes 0.6 thou/uL (0.11-0.59); #Neutrophils 6.8 thou/uL (1.40-6.50); %Basophils 0.3 % (0.0-1.0); %Eosinophils 1.8 % (0.0-10.0); %Lymphocytes 16.6 % (21.0-51.0); %Monocytes 6.9 % (0.0-10.0); %Neutrophils 74.2 % (42.0-75.0); Hematocrit 40.4 % (42.0-52.0); Mean Corpuscular HGB CONC 34.7 g/dL (32.0-36.0); Mean Corpuscular Hemoglobin 29.9 pg (27.0-31.0); Mean Corpuscular Volume 86.3 fl (78.0-98.0); Mean Platelet Volume 9.5 fL (7.4-10.4); Platelet Count 282 10x3/uL (130-400); RBC Distribution Width 13.1 % (11.5-14.5); Red Blood Cell (RBC) Count 4.68 mill/uL (4.70-6.10); White Blood Cell (WBC) Count 9.1 10x3/uL (4.8-10.8)
[2023-06-10] MEDS ORDERED: Acetaminophen 325 MG TAB ONE (03:05)
[2023-06-10 03:07] LABS: ALT (SGPT) 16 U/L (8-55); AST (SGOT) 17 U/L (5-34); Albumin 3.9 g/dL (3.5-5.0); Alkaline Phosphatase 126 U/L (40-110); Anion Gap 12 mmol/L (10-20); BUN (Urea Nitrogen) 15 mg/dL (8.9-20.6); Bilirubin, Total 0.4 mg/dL (0.2-1.2); Calc. Creatinine Clearance 0 mL/min (70-130); Calcium 8.9 mg/dL (7.8-10.44); Carbon Dioxide 24 mmol/L (22-29); Chloride 109 mmol/L (98-107); Estimated GFR 80; Globulin 2.6 g/dL (2.4-3.5); Glucose 88 mg/dL (70-105); Potassium 3.8 mmol/L (3.5-5.1); Protein, Total 6.5 g/dL (6.0-8.3); Sodium 141 mmol/L (136-145)
[2023-06-10 03:11] LABS: Acetaminophen Less than 10 mcg/mL (10.0-30.0); Alcohol Less than 10.0 mg/dL (Less than 10); Salicylate Less than 8.0 mg/dL (15.0-30.0)
== END 2023-06-10 11:42 | disposition home or self-care (01) ==
LOC: ERS 01:33
DX: R45.851 Suicidal ideations (principal); I10 Essential (primary) hypertension; F17.290 Nicotine dependence, other tobacco product, uncomplicated
CPT/HCPCS: 36415; 80053; 80307; 84443; 85025; 93005

== ENCOUNTER 2023-06-15 09:55 | Emergency (ER) | payer SELFPAY ==
[2023-06-15 10:32] LABS: #Eosinphils 0.2 thou/uL (0.0-0.7); #Monocytes 0.5 thou/uL (0.11-0.59); #Neutrophils 5.4 thou/uL (1.40-6.50); %Basophils 0.3 % (0.0-1.0); %Eosinophils 2.5 % (0.0-10.0); %Lymphocytes 15.4 % (21.0-51.0); %Monocytes 6.5 % (0.0-10.0); %Neutrophils 75.2 % (42.0-75.0); Hematocrit 43.4 % (42.0-52.0); Mean Corpuscular HGB CONC 34.6 g/dL (32.0-36.0); Mean Corpuscular Hemoglobin 29.7 pg (27.0-31.0); Mean Corpuscular Volume 85.9 fl (78.0-98.0); Mean Platelet Volume 9.7 fL (7.4-10.4); Platelet Count 292 10x3/uL (130-400); RBC Distribution Width 13.3 % (11.5-14.5); Red Blood Cell (RBC) Count 5.05 mill/uL (4.70-6.10); White Blood Cell (WBC) Count 7.2 10x3/uL (4.8-10.8)
[2023-06-15 10:55] LABS: Acetaminophen Less than 10 mcg/mL (10.0-30.0); Alcohol Less than 10.0 mg/dL (Less than 10); Salicylate Less than 8.0 mg/dL (15.0-30.0)
[2023-06-15 10:56] LABS: ALT (SGPT) 35 U/L (8-55); AST (SGOT) 24 U/L (5-34); Albumin 4.3 g/dL (3.5-5.0); Alkaline Phosphatase 163 U/L (40-110); Anion Gap 13 mmol/L (10-20); BUN (Urea Nitrogen) 17 mg/dL (8.9-20.6); Bilirubin, Total 0.6 mg/dL (0.2-1.2); CK (CPK) 143 U/L (30-200); Calc. Creatinine Clearance 0 mL/min (70-130); Calcium 9.8 mg/dL (7.8-10.44); Carbon Dioxide 25 mmol/L (22-29); Chloride 106 mmol/L (98-107); Estimated GFR 83; Globulin 2.7 g/dL (2.4-3.5); Glucose 71 mg/dL (70-105); Potassium 4.7 mmol/L (3.5-5.1); Sodium 139 mmol/L (136-145)
[2023-06-15 11:00] LABS: Troponin I Less than 0.010 ng/mL (< 0.028)
[2023-06-15] MEDS ORDERED: Aspirin Chewable 81 MG TAB ONE (11:55)
[2023-06-15 12:03] LABS: Bacteria/HPF None Seen HPF (None Seen); Bilirubin Negative (Negative); Blood, Urine Negative (Negative); CAUTI Indications for Culture Alt mental st,lethar; Clarity Clear (Clear); Glucose, Urine (Dipstick) Normal (Negative); Ketone, Urine Negative (Negative); Leukocyte Negative Leu/uL (Negative); Nitrite Negative (Negative); Protein, Urine (Dipstick) Negative (Neg-Trace); RBC/HPF 0-3 HPF (0-3); Specific Gravity, Urine 1.022 (1.002-1.036); Squamous Epithelial None Seen HPF (0-3); Urobilinogen Normal mg/dL (Less than 2); WBC/HPF 0-3 HPF (0-3)
[2023-06-15 12:06] LABS: Urine Culture Reflex No No
[2023-06-15 12:11] LABS: Amphetamine Not Detected (NotDetected); Barbiturates Screen Not Detected (NotDetected); Benzodiazepine Screen Not Detected (NotDetected); Cocaine Metabolite Screen Not Detected (NotDetected); Methadone Not Detected (NotDetected); Methamphetamine Not Detected (NotDetected); Opiate Screen Not Detected (NotDetected); Oxycodone Screen Not Detected (NotDetected); Phencyclidine (PCP) Not Detected (NotDetected); THC/Cannabinoid Screen Not Detected (NotDetected); Tricyclic Screen Not Detected (NotDetected)
[2023-06-15 14:29] LABS: Troponin I Less than 0.010 ng/mL (< 0.028)
== END 2023-06-15 15:03 | disposition home or self-care (01) ==
LOC: ERS 09:55
DX: R07.9 Chest pain, unspecified (principal); I10 Essential (primary) hypertension; F17.290 Nicotine dependence, other tobacco product, uncomplicated
CPT/HCPCS: 71045; 80053; 80306; 80307; 81001; 82550; 83735; 84484; 85025; 93005

== ENCOUNTER 2023-06-15 23:28 | Emergency (ER) | payer SELFPAY ==
[2023-06-15] MEDS ORDERED: Lorazepam 1 MG TAB ONE (23:46)
[2023-06-16 00:43] LABS: #Eosinphils 0.1 thou/uL (0.0-0.7); #Monocytes 0.6 thou/uL (0.11-0.59); #Neutrophils 7.5 thou/uL (1.40-6.50); %Basophils 0.4 % (0.0-1.0); %Eosinophils 1.3 % (0.0-10.0); %Monocytes 6.1 % (0.0-10.0); %Neutrophils 80.9 % (42.0-75.0); Hematocrit 36.4 % (42.0-52.0); Hemoglobin 12.7 g/dL (14.0-18.0); Mean Corpuscular HGB CONC 34.9 g/dL (32.0-36.0); Mean Corpuscular Volume 85.8 fl (78.0-98.0); Mean Platelet Volume 9.8 fL (7.4-10.4); Platelet Count 243 10x3/uL (130-400); RBC Distribution Width 13.2 % (11.5-14.5); Red Blood Cell (RBC) Count 4.24 mill/uL (4.70-6.10); White Blood Cell (WBC) Count 9.2 10x3/uL (4.8-10.8)
[2023-06-16 01:04] LABS: Acetaminophen Less than 10 mcg/mL (10.0-30.0); Alcohol Less than 10.0 mg/dL (Less than 10); Salicylate Less than 8.0 mg/dL (15.0-30.0)
[2023-06-16 01:05] LABS: ALT (SGPT) 25 U/L (8-55); AST (SGOT) 17 U/L (5-34); Albumin 3.7 g/dL (3.5-5.0); Alcohol Less than 10.0 mg/dL (Less than 10); Alkaline Phosphatase 122 U/L (40-110); Anion Gap 12 mmol/L (10-20); BUN (Urea Nitrogen) 15 mg/dL (8.9-20.6); Bilirubin, Total 0.7 mg/dL (0.2-1.2); Calc. Creatinine Clearance 0 mL/min (70-130); Calcium 8.7 mg/dL (7.8-10.44); Carbon Dioxide 22 mmol/L (22-29); Chloride 107 mmol/L (98-107); Estimated GFR 85; Globulin 2.4 g/dL (2.4-3.5); Glucose 123 mg/dL (70-105); Potassium 3.2 mmol/L (3.5-5.1); Protein, Total 6.1 g/dL (6.0-8.3); Sodium 138 mmol/L (136-145)
[2023-06-16] MEDS ORDERED: Potassium Chloride 20 MEQ TAB ONE (03:38)
[2023-06-16] MEDS ORDERED: Pot Chloride/Pot Bicarb/Cit Ac 25 mEq Effervescent Tablet ONE (03:42)
[2023-06-16 12:14] LABS: Bacteria/HPF None Seen HPF (None Seen); Bilirubin Negative (Negative); Blood, Urine Negative (Negative); CAUTI Indications for Culture Alt mental st,lethar; Clarity Turbid (Clear); Glucose, Urine (Dipstick) Normal (Negative); Ketone, Urine Negative (Negative); Leukocyte Negative Leu/uL (Negative); Nitrite Negative (Negative); Protein, Urine (Dipstick) Negative (Neg-Trace); RBC/HPF 0-3 HPF (0-3); Specific Gravity, Urine 1.025 (1.002-1.036); Squamous Epithelial None Seen HPF (0-3); Urobilinogen 3 mg/dL (Less than 2); WBC/HPF 0-3 HPF (0-3)
[2023-06-16 12:17] LABS: Amphetamine Not Detected (NotDetected); Barbiturates Screen Not Detected (NotDetected); Benzodiazepine Screen Detected (NotDetected); Cocaine Metabolite Screen Not Detected (NotDetected); Methadone Not Detected (NotDetected); Methamphetamine Not Detected (NotDetected); Opiate Screen Not Detected (NotDetected); Oxycodone Screen Not Detected (NotDetected); Phencyclidine (PCP) Not Detected (NotDetected); THC/Cannabinoid Screen Not Detected (NotDetected); Tricyclic Screen Not Detected (NotDetected); Urine Culture Reflex No No
== END 2023-06-16 15:27 ==
LOC: ERS 23:28
DX: F30.9 Manic episode, unspecified (principal); F20.89 Other schizophrenia; R45.851 Suicidal ideations; F17.210 Nicotine dependence, cigarettes, uncomplicated
CPT/HCPCS: 36415; 80053; 80306; 80307; 81001; 84443; 85025; 93005

== ENCOUNTER 2023-06-28 12:36 | Emergency (ER) | payer SELFPAY | END 2023-06-28 13:34 | disposition home or self-care (01) | LOC: ERS 12:36 | DX: S70.312A Abrasion, left thigh, initial encounter (principal); L03.116 Cellulitis of left lower limb; F17.210 Nicotine dependence, cigarettes, uncomplicated | CPT/HCPCS: 99283 ==

== ENCOUNTER 2023-09-30 06:12 | Emergency (ER) | payer SELFPAY ==
[2023-09-30] MEDS ORDERED: Ketorolac Tromethamine 30 MG/ML VIAL ONE (06:31)
== END 2023-09-30 06:50 | disposition home or self-care (01) ==
LOC: ERS 06:12
DX: S39.011A Strain of muscle, fascia and tendon of abdomen, initial encounter (principal); F17.290 Nicotine dependence, other tobacco product, uncomplicated; F17.210 Nicotine dependence, cigarettes, uncomplicated; X58.XXXA Exposure to other specified factors, initial encounter
CPT/HCPCS: 96372; 99283; J1885

== ENCOUNTER 2023-10-02 11:41 | Emergency (ER) | payer SELFPAY ==
[2023-10-02] MEDS ORDERED: Ibuprofen 200 MG TAB ONE (12:54)
[2023-10-02] MEDS ORDERED: Acetaminophen 500 MG TAB ONE (12:54)
== END 2023-10-02 13:00 ==
LOC: ERS 11:41
DX: L30.9 Dermatitis, unspecified (principal); F17.210 Nicotine dependence, cigarettes, uncomplicated
CPT/HCPCS: 99283

== ENCOUNTER 2023-10-04 21:39 | Emergency (ER) | payer SELFPAY ==
[2023-10-04 22:04] LABS: #Eosinphils 0.1 thou/uL (0.0-0.7); #Neutrophils 12.3 thou/uL (1.40-6.50); %Basophils 0.1 % (0.0-1.0); %Eosinophils 0.6 % (0.0-10.0); %Lymphocytes 11.1 % (21.0-51.0); %Monocytes 6.8 % (0.0-10.0); %Neutrophils 80.9 % (42.0-75.0); Hematocrit 40.9 % (42.0-52.0); Hemoglobin 14.2 g/dL (14.0-18.0); Mean Corpuscular HGB CONC 34.7 g/dL (32.0-36.0); Mean Corpuscular Hemoglobin 30.3 pg (27.0-31.0); Mean Corpuscular Volume 87.4 fl (78.0-98.0); Mean Platelet Volume 9.9 fL (7.4-10.4); Platelet Count 236 10x3/uL (130-400); RBC Distribution Width 12.1 % (11.5-14.5); Red Blood Cell (RBC) Count 4.68 mill/uL (4.70-6.10); White Blood Cell (WBC) Count 15.2 10x3/uL (4.8-10.8)
[2023-10-04 22:31] LABS: Acetaminophen Less than 10 mcg/mL (10.0-30.0); Alcohol Less than 10.0 mg/dL (Less than 10); Salicylate Less than 8.0 mg/dL (15.0-30.0)
[2023-10-04 22:32] LABS: ALT (SGPT) 29 U/L (8-55); AST (SGOT) 22 U/L (5-34); Albumin 3.6 g/dL (3.5-5.0); Alkaline Phosphatase 94 U/L (40-110); Anion Gap 10 mmol/L (10-20); BUN (Urea Nitrogen) 13 mg/dL (8.9-20.6); Bilirubin, Total 0.6 mg/dL (0.2-1.2); Calc. Creatinine Clearance 0 mL/min (70-130); Calcium 8.6 mg/dL (7.8-10.44); Carbon Dioxide 30 mmol/L (22-29); Chloride 102 mmol/L (98-107); Estimated GFR 92; Globulin 2.2 g/dL (2.4-3.5); Glucose 82 mg/dL (70-105); Potassium 4.1 mmol/L (3.5-5.1); Protein, Total 5.8 g/dL (6.0-8.3); Sodium 138 mmol/L (136-145)
[2023-10-04 23:11] LABS: Bacteria/HPF None Seen HPF (None Seen); Bilirubin Negative (Negative); Blood, Urine Negative (Negative); CAUTI Indications for Culture Fever or rigors; Clarity Clear (Clear); Glucose, Urine (Dipstick) Normal (Negative); Ketone, Urine Negative (Negative); Leukocyte Negative Leu/uL (Negative); Nitrite Negative (Negative); Protein, Urine (Dipstick) Negative (Neg-Trace); RBC/HPF 0-3 HPF (0-3); Specific Gravity, Urine 1.011 (1.002-1.036); Squamous Epithelial None Seen HPF (0-3); Urobilinogen Normal mg/dL (Less than 2); WBC/HPF 0-3 HPF (0-3); pH, Urine 5.5 (5.0-9.0)
[2023-10-04 23:12] LABS: Amphetamine Not Detected (NotDetected); Barbiturates Screen Not Detected (NotDetected); Benzodiazepine Screen Not Detected (NotDetected); Cocaine Metabolite Screen Not Detected (NotDetected); Methadone Not Detected (NotDetected); Methamphetamine Not Detected (NotDetected); Opiate Screen Not Detected (NotDetected); Oxycodone Screen Not Detected (NotDetected); Phencyclidine (PCP) Not Detected (NotDetected); THC/Cannabinoid Screen Not Detected (NotDetected); Tricyclic Screen Not Detected (NotDetected)
[2023-10-04 23:15] LABS: Urine Culture Reflex No No
[2023-10-04] MEDS ORDERED: Ketorolac Tromethamine 30 MG/ML VIAL ONE (23:40)
[2023-10-04] MEDS ORDERED: diphenhydrAMINE 50 MG/ML VIAL ONE (23:40)
[2023-10-05 00:27] LABS: Troponin I Less than 0.010 ng/mL (< 0.028)
[2023-10-05] MEDS ORDERED: Ketorolac Tromethamine 30 MG/ML VIAL ONE (11:45)
== END 2023-10-05 11:59 | disposition home or self-care (01) ==
LOC: ERS 21:39
DX: R45.851 Suicidal ideations (principal); I10 Essential (primary) hypertension; F17.210 Nicotine dependence, cigarettes, uncomplicated
CPT/HCPCS: 36415; 71045; 80053; 80306; 80307; 81001; 84443; 84484; 85025; 96361; 96372; 96374; 96375; J1200; J1885

== ENCOUNTER 2023-10-07 22:21 | Emergency (ER) | payer SELFPAY ==
[2023-10-07] MEDS ORDERED: Acetaminophen 500 MG TAB ONE (23:10)
== END 2023-10-08 00:23 | disposition home or self-care (01) ==
LOC: ERS 22:21
DX: R51.9 Headache, unspecified (principal); M79.672 Pain in left foot; M79.671 Pain in right foot; F17.210 Nicotine dependence, cigarettes, uncomplicated
CPT/HCPCS: 99283

== ENCOUNTER 2023-10-09 06:39 | Emergency (ER) | payer SELFPAY | END 2023-10-09 07:19 | disposition home or self-care (01) | LOC: ERS 06:39 | DX: M79.672 Pain in left foot (principal); M79.671 Pain in right foot; I10 Essential (primary) hypertension; F17.210 Nicotine dependence, cigarettes, uncomplicated | CPT/HCPCS: 99283 ==

== ENCOUNTER 2023-10-09 10:47 | Emergency (ER) | payer SELFPAY ==
[2023-10-09 11:22] LABS: #Eosinphils 0.1 thou/uL (0.0-0.7); #Monocytes 1.1 thou/uL (0.11-0.59); #Neutrophils 11.2 thou/uL (1.40-6.50); %Basophils 0.1 % (0.0-1.0); %Eosinophils 0.9 % (0.0-10.0); %Lymphocytes 8.9 % (21.0-51.0); %Monocytes 7.7 % (0.0-10.0); Hemoglobin 12.9 g/dL (14.0-18.0); Mean Corpuscular HGB CONC 34.9 g/dL (32.0-36.0); Mean Corpuscular Hemoglobin 30.1 pg (27.0-31.0); Mean Corpuscular Volume 86.2 fl (78.0-98.0); Mean Platelet Volume 9.2 fL (7.4-10.4); Platelet Count 316 10x3/uL (130-400); RBC Distribution Width 12.2 % (11.5-14.5); Red Blood Cell (RBC) Count 4.29 mill/uL (4.70-6.10); White Blood Cell (WBC) Count 13.7 10x3/uL (4.8-10.8)
[2023-10-09 11:51] LABS: ALT (SGPT) 19 U/L (8-55); AST (SGOT) 22 U/L (5-34); Albumin 3.5 g/dL (3.5-5.0); Alcohol Less than 10.0 mg/dL (Less than 10); Alkaline Phosphatase 104 U/L (40-110); Anion Gap 14 mmol/L (10-20); BUN (Urea Nitrogen) 12 mg/dL (8.9-20.6); Bilirubin, Total 0.8 mg/dL (0.2-1.2); CK (CPK) 284 U/L (30-200); Calc. Creatinine Clearance 0 mL/min (70-130); Calcium 8.6 mg/dL (7.8-10.44); Carbon Dioxide 25 mmol/L (22-29); Chloride 101 mmol/L (98-107); Estimated GFR 102; Globulin 2.5 g/dL (2.4-3.5); Glucose 97 mg/dL (70-105); Potassium 3.6 mmol/L (3.5-5.1); Sodium 136 mmol/L (136-145)
[2023-10-09 11:53] LABS: Acetaminophen Less than 10 mcg/mL (10.0-30.0); Alcohol Less than 10.0 mg/dL (Less than 10); Salicylate Less than 8.0 mg/dL (15.0-30.0)
[2023-10-09] MEDS ORDERED: Ketorolac Tromethamine 30 MG/ML VIAL ONE (13:28)
== END 2023-10-09 14:19 | disposition home or self-care (01) ==
LOC: ERS 10:47
DX: E86.0 Dehydration (principal); F19.10 Other psychoactive substance abuse, uncomplicated; F17.210 Nicotine dependence, cigarettes, uncomplicated; I10 Essential (primary) hypertension
CPT/HCPCS: 36415; 80053; 80307; 82550; 84443; 85025; 93005; 96372; J1885

== ENCOUNTER 2023-10-10 19:34 | Emergency (ER) | payer SELFPAY ==
[2023-10-10 20:57] LABS: #Eosinphils 0.2 thou/uL (0.0-0.7); #Monocytes 0.8 thou/uL (0.11-0.59); #Neutrophils 7.7 thou/uL (1.40-6.50); %Basophils 0.3 % (0.0-1.0); %Eosinophils 1.9 % (0.0-10.0); %Lymphocytes 13.9 % (21.0-51.0); %Monocytes 7.6 % (0.0-10.0); Hematocrit 36.6 % (42.0-52.0); Hemoglobin 12.4 g/dL (14.0-18.0); Mean Corpuscular HGB CONC 33.9 g/dL (32.0-36.0); Mean Corpuscular Hemoglobin 30.2 pg (27.0-31.0); Mean Corpuscular Volume 89.1 fl (78.0-98.0); Mean Platelet Volume 9.2 fL (7.4-10.4); Platelet Count 345 10x3/uL (130-400); RBC Distribution Width 12.5 % (11.5-14.5); Red Blood Cell (RBC) Count 4.11 mill/uL (4.70-6.10); White Blood Cell (WBC) Count 10.1 10x3/uL (4.8-10.8)
[2023-10-10 21:27] LABS: Acetaminophen Less than 10 mcg/mL (10.0-30.0); Alcohol Less than 10.0 mg/dL (Less than 10); Salicylate Less than 8.0 mg/dL (15.0-30.0)
[2023-10-10 21:28] LABS: ALT (SGPT) 18 U/L (8-55); AST (SGOT) 24 U/L (5-34); Albumin 3.6 g/dL (3.5-5.0); Alkaline Phosphatase 100 U/L (40-110); Anion Gap 13 mmol/L (10-20); BUN (Urea Nitrogen) 14 mg/dL (8.9-20.6); Bilirubin, Total 0.4 mg/dL (0.2-1.2); Calc. Creatinine Clearance 0 mL/min (70-130); Calcium 8.6 mg/dL (7.8-10.44); Carbon Dioxide 25 mmol/L (22-29); Chloride 103 mmol/L (98-107); Estimated GFR 93; Globulin 2.1 g/dL (2.4-3.5); Glucose 91 mg/dL (70-105); Potassium 3.7 mmol/L (3.5-5.1); Protein, Total 5.7 g/dL (6.0-8.3); Sodium 137 mmol/L (136-145)
[2023-10-10 23:45] LABS: Amphetamine Not Detected (NotDetected); Barbiturates Screen Not Detected (NotDetected); Benzodiazepine Screen Not Detected (NotDetected); Cocaine Metabolite Screen Not Detected (NotDetected); Methadone Not Detected (NotDetected); Methamphetamine Not Detected (NotDetected); Opiate Screen Not Detected (NotDetected); Oxycodone Screen Not Detected (NotDetected); Phencyclidine (PCP) Not Detected (NotDetected); THC/Cannabinoid Screen Detected (NotDetected); Tricyclic Screen Not Detected (NotDetected)
== END 2023-10-11 00:43 | disposition home or self-care (01) ==
LOC: ERS 19:34
DX: F43.20 Adjustment disorder, unspecified (principal); I10 Essential (primary) hypertension; F17.210 Nicotine dependence, cigarettes, uncomplicated
CPT/HCPCS: 36415; 80053; 80306; 80307; 85025; 93005

== ENCOUNTER 2023-11-22 14:04 | Emergency (ER) | payer SELFPAY ==
[2023-11-22 14:42] LABS: #Eosinphils 0.1 thou/uL (0.0-0.7); #Monocytes 0.9 thou/uL (0.11-0.59); #Neutrophils 13.6 thou/uL (1.40-6.50); %Basophils 0.2 % (0.0-1.0); %Eosinophils 0.6 % (0.0-10.0); %Lymphocytes 6.3 % (21.0-51.0); %Monocytes 5.5 % (0.0-10.0); Hematocrit 41.7 % (42.0-52.0); Hemoglobin 14.3 g/dL (14.0-18.0); Mean Corpuscular HGB CONC 34.3 g/dL (32.0-36.0); Mean Corpuscular Hemoglobin 29.8 pg (27.0-31.0); Mean Corpuscular Volume 86.9 fl (78.0-98.0); Platelet Count 242 10x3/uL (130-400); RBC Distribution Width 12.6 % (11.5-14.5); White Blood Cell (WBC) Count 15.7 10x3/uL (4.8-10.8)
[2023-11-22 15:03] LABS: Acetaminophen Less than 10 mcg/mL (10.0-30.0); Alcohol Less than 10.0 mg/dL (Less than 10); Salicylate Less than 8.0 mg/dL (15.0-30.0)
[2023-11-22 15:04] LABS: ALT (SGPT) 40 U/L (8-55); AST (SGOT) 50 U/L (5-34); Albumin 4.3 g/dL (3.5-5.0); Alkaline Phosphatase 116 U/L (40-110); Anion Gap 15 mmol/L (10-20); BUN (Urea Nitrogen) 24 mg/dL (8.9-20.6); Bilirubin, Total 0.9 mg/dL (0.2-1.2); Calc. Creatinine Clearance 0 mL/min (70-130); Calcium 9.1 mg/dL (7.8-10.44); Carbon Dioxide 26 mmol/L (22-29); Chloride 99 mmol/L (98-107); Estimated GFR 80; Glucose 100 mg/dL (70-105); Potassium 4.3 mmol/L (3.5-5.1); Protein, Total 7.3 g/dL (6.0-8.3); Sodium 136 mmol/L (136-145)
[2023-11-22] MEDS ORDERED: OLANZapine 5 MG TAB ONE (15:07)
[2023-11-22] MEDS ORDERED: traZODone HCl 50 MG TAB ONE (17:10)
[2023-11-22 19:42] LABS: Amphetamine Not Detected (NotDetected); Barbiturates Screen Not Detected (NotDetected); Benzodiazepine Screen Not Detected (NotDetected); Cocaine Metabolite Screen Not Detected (NotDetected); Methadone Not Detected (NotDetected); Methamphetamine Not Detected (NotDetected); Opiate Screen Not Detected (NotDetected); Oxycodone Screen Not Detected (NotDetected); Phencyclidine (PCP) Not Detected (NotDetected); THC/Cannabinoid Screen Not Detected (NotDetected); Tricyclic Screen Not Detected (NotDetected)
== END 2023-11-23 09:10 | disposition home or self-care (01) ==
LOC: ERS 14:04
DX: F20.9 Schizophrenia, unspecified (principal); I10 Essential (primary) hypertension; F17.210 Nicotine dependence, cigarettes, uncomplicated
CPT/HCPCS: 80053; 80306; 80307; 84443; 85025; 96360

== ENCOUNTER 2024-01-14 20:41 | Emergency (ER) | payer OTHER ==
[2024-01-14] MEDS ORDERED: Ibuprofen 200 MG TAB ONE (22:12)
[2024-01-14] MEDS ORDERED: Acetaminophen 325 MG TAB ONE (22:12)
[2024-01-14 22:31] LABS: #Eosinphils 0.1 thou/uL (0.0-0.7); #Monocytes 0.7 thou/uL (0.11-0.59); #Neutrophils 8.8 thou/uL (1.40-6.50); %Basophils 0.3 % (0.0-1.0); %Lymphocytes 13.9 % (21.0-51.0); %Monocytes 6.3 % (0.0-10.0); %Neutrophils 78.1 % (42.0-75.0); Hematocrit 40.7 % (42.0-52.0); Hemoglobin 14.1 g/dL (14.0-18.0); Mean Corpuscular HGB CONC 34.6 g/dL (32.0-36.0); Mean Corpuscular Hemoglobin 30.2 pg (27.0-31.0); Mean Corpuscular Volume 87.2 fl (78.0-98.0); Mean Platelet Volume 9.4 fL (7.4-10.4); Platelet Count 355 10x3/uL (130-400); RBC Distribution Width 12.7 % (11.5-14.5); Red Blood Cell (RBC) Count 4.67 mill/uL (4.70-6.10); White Blood Cell (WBC) Count 11.3 10x3/uL (4.8-10.8)
[2024-01-14 22:50] LABS: Acetaminophen Less than 10 mcg/mL (10.0-30.0); Alcohol Less than 10.0 mg/dL (Less than 10); Magnesium 1.9 mg/dL (1.6-2.6); Salicylate Less than 8.0 mg/dL (15.0-30.0)
[2024-01-14 22:52] LABS: Troponin I Less than 0.010 ng/mL (< 0.028)
[2024-01-14 22:53] LABS: ALT (SGPT) 23 U/L (8-55); AST (SGOT) 23 U/L (5-34); Albumin 3.9 g/dL (3.5-5.0); Alkaline Phosphatase 143 U/L (40-110); Anion Gap 13 mmol/L (10-20); BUN (Urea Nitrogen) 12 mg/dL (8.9-20.6); Bilirubin, Total 0.5 mg/dL (0.2-1.2); Calc. Creatinine Clearance 0 mL/min (70-130); Calcium 9.1 mg/dL (7.8-10.44); Carbon Dioxide 24 mmol/L (22-29); Chloride 103 mmol/L (98-107); Estimated GFR 92; Globulin 2.3 g/dL (2.4-3.5); Glucose 85 mg/dL (70-105); Potassium 4.2 mmol/L (3.5-5.1); Protein, Total 6.2 g/dL (6.0-8.3); Sodium 136 mmol/L (136-145)
[2024-01-14] MEDS ORDERED: Lidocaine 1% MPF 2 ML VIAL ONE (23:40)
[2024-01-14] MEDS ORDERED: cefTRIAXone (ROCEPHIN) 1 GM VIAL ONE (23:40)
== END 2024-01-15 00:25 | disposition home or self-care (01) ==
LOC: ERS 20:41
DX: D72.829 Elevated white blood cell count, unspecified (principal); G47.00 Insomnia, unspecified
CPT/HCPCS: 36415; 71045; 80053; 80307; 83735; 84484; 85025; 85379; 87040; 96372; J0696

== ENCOUNTER 2024-01-15 11:00 | Emergency (ER) | payer OTHER ==
[2024-01-15 12:17] LABS: Amphetamine Not Detected (NotDetected); Barbiturates Screen Not Detected (NotDetected); Benzodiazepine Screen Not Detected (NotDetected); Cocaine Metabolite Screen Not Detected (NotDetected); Methadone Not Detected (NotDetected); Methamphetamine Not Detected (NotDetected); Opiate Screen Not Detected (NotDetected); Oxycodone Screen Not Detected (NotDetected); Phencyclidine (PCP) Not Detected (NotDetected); THC/Cannabinoid Screen Not Detected (NotDetected); Tricyclic Screen Not Detected (NotDetected)
[2024-01-15 12:28] LABS: #Basophils Less than 0.03 10x3/uL (0.0-0.2); %Basophils 0.2 % (0.0-1.0); %Eosinophils 1.1 % (0.0-10.0); %Lymphocytes 13.9 % (21.0-51.0); %Monocytes 5.8 % (0.0-10.0); %Neutrophils 78.7 % (42.0-75.0); Hematocrit 42.8 % (42.0-52.0); Hemoglobin 14.6 g/dL (14.0-18.0); Mean Corpuscular HGB CONC 34.1 g/dL (32.0-36.0); Mean Corpuscular Hemoglobin 29.9 pg (27.0-31.0); Mean Corpuscular Volume 87.7 fl (78.0-98.0); Mean Platelet Volume 9.3 fL (7.4-10.4); Platelet Count 380 10x3/uL (130-400); RBC Distribution Width 12.9 % (11.5-14.5); Red Blood Cell (RBC) Count 4.88 mill/uL (4.70-6.10)
[2024-01-15 12:46] LABS: ALT (SGPT) 25 U/L (8-55); AST (SGOT) 29 U/L (5-34); Alkaline Phosphatase 141 U/L (40-110); Anion Gap 12 mmol/L (10-20); BUN (Urea Nitrogen) 13 mg/dL (8.9-20.6); Bilirubin, Total 0.6 mg/dL (0.2-1.2); Calc. Creatinine Clearance 0 mL/min (70-130); Calcium 9.4 mg/dL (7.8-10.44); Carbon Dioxide 27 mmol/L (22-29); Chloride 105 mmol/L (98-107); Estimated GFR 90; Globulin 2.5 g/dL (2.4-3.5); Glucose 96 mg/dL (70-105); Potassium 4.8 mmol/L (3.5-5.1); Protein, Total 6.5 g/dL (6.0-8.3); Sodium 139 mmol/L (136-145)
[2024-01-15 12:47] LABS: Acetaminophen Less than 10 mcg/mL (10.0-30.0); Alcohol Less than 10.0 mg/dL (Less than 10); Salicylate Less than 8.0 mg/dL (15.0-30.0)
[2024-01-15] MEDS ORDERED: Ketorolac Tromethamine 30 MG (1 mL) VIAL ONE (14:38)
[2024-01-15] MEDS ORDERED: Acetaminophen 500 MG TAB ONE (14:38)
== END 2024-01-15 15:03 | disposition home or self-care (01) ==
LOC: ERS 11:00
DX: R51.9 Headache, unspecified (principal); R42 Dizziness and giddiness; I10 Essential (primary) hypertension; F17.210 Nicotine dependence, cigarettes, uncomplicated; F17.290 Nicotine dependence, other tobacco product, uncomplicated
CPT/HCPCS: 36415; 71045; 80053; 80306; 80307; 83735; 84484; 85025; 85379; 87040; 93005; 96372; J0696; J1885

== ENCOUNTER 2024-07-04 10:43 | Emergency (ER) | payer OTHER ==
[2024-07-04 11:39] LABS: #Basophils 0.03 10x3/uL (0.0-0.2); %Basophils 0.4 % (0.0-1.0); %Eosinophils 0.9 % (0.0-10.0); %Lymphocytes 17.3 % (21.0-51.0); %Monocytes 7.9 % (0.0-10.0); Hematocrit 39.7 % (42.0-52.0); Hemoglobin 14.3 g/dL (14.0-18.0); Mean Corpuscular Hemoglobin 29.9 pg (27.0-31.0); Mean Corpuscular Volume 83.1 fL (78.0-98.0); Mean Platelet Volume 9.3 fL (7.4-10.4); Platelet Count 283 10x3/uL (130-400); RBC Distribution Width 12.2 % (11.5-14.5); Red Blood Cell (RBC) Count 4.78 mill/uL (4.70-6.10)
[2024-07-04 12:04] LABS: Acetaminophen Less than 10 mcg/mL (Less than 10); Alcohol Less than 10.0 mg/dL (Less than 10); Salicylate Less than 8.0 mg/dL (Less than 8.0)
[2024-07-04 12:07] LABS: ALT (SGPT) 20 U/L (8-55); AST (SGOT) 17 U/L (5-34); Albumin 3.7 g/dL (3.5-5.0); Alkaline Phosphatase 131 U/L (40-110); Anion Gap 13 mmol/L (10-20); BUN (Urea Nitrogen) 15 mg/dL (8.9-20.6); Bilirubin, Total 0.4 mg/dL (0.2-1.2); CK (CPK) 134 U/L (30-200); Calc. Creatinine Clearance 0 mL/min (70-130); Calcium 8.8 mg/dL (7.8-10.44); Carbon Dioxide 22 mmol/L (22-29); Chloride 105 mmol/L (98-107); Estimated GFR 85; Globulin 2.7 g/dL (2.4-3.5); Glucose 87 mg/dL (70-105); Potassium 3.6 mmol/L (3.5-5.1); Protein, Total 6.4 g/dL (6.0-8.3); Sodium 136 mmol/L (136-145)
[2024-07-04 12:21] LABS: Amphetamine Not Detected (NotDetected); Barbiturates Screen Not Detected (NotDetected); Benzodiazepine Screen Not Detected (NotDetected); Cocaine Metabolite Screen Not Detected (NotDetected); Methadone Not Detected (NotDetected); Methamphetamine Not Detected (NotDetected); Opiate Screen Not Detected (NotDetected); Oxycodone Screen Not Detected (NotDetected); Phencyclidine (PCP) Not Detected (NotDetected); THC/Cannabinoid Screen Not Detected (NotDetected); Tricyclic Screen Not Detected (NotDetected)
== END 2024-07-04 17:28 ==
LOC: ERS 10:43
DX: R44.0 Auditory hallucinations (principal); G47.00 Insomnia, unspecified; I10 Essential (primary) hypertension; F17.210 Nicotine dependence, cigarettes, uncomplicated; F17.290 Nicotine dependence, other tobacco product, uncomplicated; F31.9 Bipolar disorder, unspecified; Z79.899 Other long term (current) drug therapy
CPT/HCPCS: 36415; 70450; 80053; 80306; 80307; 82550; 84443; 85025; 93005

== ENCOUNTER 2025-06-03 04:09 | Emergency (ER) | payer OTHER, SELFPAY ==
[2025-06-03 05:26] LABS: #Basophils 0.03 10x3/uL (0.0-0.2); #Eosinophils 0.19 10x3/uL (0.0-0.7); #Monocytes 0.86 10x3/uL (0.11-0.59); #Neutrophils 9.18 10x3/uL (1.40-6.50); %Basophils 0.2 % (0.0-1.0); %Eosinophils 1.6 % (0.0-10.0); %Lymphocytes 14.8 % (21.0-51.0); %Monocytes 7.1 % (0.0-10.0); %Neutrophils 76.0 % (42.0-75.0); Hematocrit 39.5 % (42.0-52.0); Hemoglobin 13.9 g/dL (14.0-18.0); Mean Corpuscular Hemoglobin 29.1 pg (27.0-31.0); Mean Corpuscular Volume 82.8 fL (78.0-98.0); Platelet Count 316 10x3/uL (130-400); Red Blood Cell (RBC) Count 4.77 mill/uL (4.70-6.10); White Blood Cell (WBC) Count 12.09 10x3/uL (4.8-10.8)
[2025-06-03 05:45] LABS: ALT (SGPT) 16 U/L (Less than 45); AST (SGOT) 20 U/L (11-34); Acetaminophen Less than 10 mcg/mL (Less than 10); Albumin 3.2 g/dL (3.1-4.5); Alkaline Phosphatase 133 U/L (40-110); Anion Gap 12 mmol/L (10-20); BUN (Urea Nitrogen) 10 mg/dL (8.9-20.6); Bilirubin, Total 0.3 mg/dL (0.3-1.2); Calc. Creatinine Clearance 0 mL/min (70-130); Calcium 8.0 mg/dL (7.8-10.44); Carbon Dioxide 26 mmol/L (22-29); Chloride 106 mmol/L (98-107); Globulin 2.3 g/dL (2.4-3.5); Glucose 86 mg/dL (70-105); Potassium 3.7 mmol/L (3.5-5.1); Salicylate Less than 8.0 mg/dL (Less than 8.0); Sodium 140 mmol/L (136-145)
[2025-06-03] MEDS ORDERED: Acetaminophen 500 MG TAB ONE (09:46)
[2025-06-03 13:43] LABS: Cocaine Metabolite Screen Negative (Negative); THC/Cannabinoid Screen PRELIM POSITIVE (Negative); Tricyclic Screen Negative (Negative)
[2025-06-05] MEDS ORDERED: Dexamethasone 10 MG/ML VIAL ONE (11:48)
[2025-06-05] MEDS ORDERED: HYDROcodone/Acetaminophen 10/325 mg Tablet ONE (11:50)
== END 2025-06-04 04:07 ==
LOC: ERS 04:09
DX: R45.851 Suicidal ideations (principal); F23 Brief psychotic disorder; I10 Essential (primary) hypertension; F17.210 Nicotine dependence, cigarettes, uncomplicated; F17.290 Nicotine dependence, other tobacco product, uncomplicated; Z55.6 Problems related to health literacy
CPT/HCPCS: 80053; 80306; 80307; 85025; 93005; 99285

== ENCOUNTER 2025-06-16 20:50 | Emergency (ER) | payer SELFPAY ==
[2025-06-16 22:49] LABS: #Basophils 0.05 10x3/uL (0.0-0.2); #Eosinophils 0.10 10x3/uL (0.0-0.7); #Monocytes 0.71 10x3/uL (0.11-0.59); #Neutrophils 14.40 10x3/uL (1.40-6.50); %Basophils 0.3 % (0.0-1.0); %Eosinophils 0.6 % (0.0-10.0); %Lymphocytes 8.5 % (21.0-51.0); %Monocytes 4.2 % (0.0-10.0); %Neutrophils 85.9 % (42.0-75.0); Hematocrit 42.4 % (42.0-52.0); Hemoglobin 14.4 g/dL (14.0-18.0); Mean Corpuscular Hemoglobin 28.7 pg (27.0-31.0); Mean Corpuscular Volume 84.6 fL (78.0-98.0); Platelet Count 276 10x3/uL (130-400); Red Blood Cell (RBC) Count 5.01 mill/uL (4.70-6.10); White Blood Cell (WBC) Count 16.77 10x3/uL (4.8-10.8)
[2025-06-16 23:01] LABS: Lipase 19 U/L (8-78)
[2025-06-16 23:04] LABS: Acetaminophen Less than 10 mcg/mL (Less than 10); Salicylate Less than 8.0 mg/dL (Less than 8.0)
[2025-06-16 23:05] LABS: ALT (SGPT) 34 U/L (Less than 45); AST (SGOT) 40 U/L (11-34); Albumin 3.7 g/dL (3.1-4.5); Alkaline Phosphatase 153 U/L (40-110); Anion Gap 18 mmol/L (10-20); BUN (Urea Nitrogen) 16 mg/dL (8.9-20.6); Bilirubin, Total 0.2 mg/dL (0.3-1.2); CK (CPK) 493 U/L (30-200); Calc. Creatinine Clearance 0 mL/min (70-130); Calcium 8.6 mg/dL (7.8-10.44); Carbon Dioxide 18 mmol/L (22-29); Chloride 109 mmol/L (98-107); Globulin 2.6 g/dL (2.4-3.5); Glucose 97 mg/dL (70-105); Potassium 3.6 mmol/L (3.5-5.1); Sodium 141 mmol/L (136-145)
== END 2025-06-16 23:48 ==
LOC: ERS 20:50
DX: R07.9 Chest pain, unspecified (principal); R45.851 Suicidal ideations; I10 Essential (primary) hypertension; F17.290 Nicotine dependence, other tobacco product, uncomplicated
CPT/HCPCS: 36415; 71045; 80053; 80307; 82550; 83690; 84443; 84484; 85025; 93005